=== PATIENT | female | born 1955 | race Caucasian/White ===

== ENCOUNTER 2020-04-06 09:01 | Emergency (ER) | payer MEDICARE, SELFPAY ==
[2020-04-06 09:02] VITALS: BP 146/91; PULSE 83; RESP 18; TEMP 35.6; O2SAT 93; BMI 29.5
--- NOTE | 2020-04-06 09:25 | EKG12_ITS ---
Test Reason : Blood Pressure : / mmHG Vent. Rate : 075 BPM Atrial Rate : 075 BPM P-R Int : 140 ms QRS Dur : 084 ms QT Int : 390 ms P-R-T Axes : 042 -18 010 degrees QTc Int : 435 ms Normal sinus rhythm Normal ECG Confirmed by MELVA MEEK, ELLIOTT ([id number]), marketing editor ANALY LAW ([id number]) on 04/11/2020 6:32:13 AM Referred By: SCOTT Confirmed By:ELLIOTT FRYE MD
--- NOTE | 2020-04-06 09:31 | ED.DCSUM_ITS ---
- ER Visit Summary Date of Service: 04/06/20 Chief Complaint: [Cough and hemoptysis] History of Present Illness: The patient is a 64 F [presents to the emergency department complaint of a cough that she has had for about 2 weeks. Patient states that yesterday she started coughing up bright red blood. She denies any clots. Patient states that there was significant on her blood initially but seems to have lessened by today. She denies any chest pain. She denies recent travel or surgery. She has no history of hemoptysis. Patient was a smoker but quit more than 10 years ago and thinks she may have smoked for about 30 years. Patient not currently on any anticoagulation. She denies any fever. Cough is been nonproductive. Patient has history of hypertension and anxiety. Patient is on Avapro for her hypertension and states that she has been on it for many years. Denies any trauma to her chest. She denies any COVID-19 exposures. She has had some mild congestion and mild sore throat. She denies body aches. She is had a mild headache off and on.] Physical Examination: [HEENT-PERRLA, EOMI. Cranial nerves II through XII grossly intact. TMs clear. Mucous membranes moist. No adenopathy. Cardiovascular-regular rate and rhythm without murmur or ectopy Lungs-clear to auscultation, chest wall stable without crepitus or subcu emphysema Abdomen-normoactive bowel sounds, soft, nontender, no rebound or rigidity, no peritoneal signs. Extremities-intact ?4, normal range of motion, normal pulses, atraumatic] Test Results: [EKG obtained arrival shows sinus rhythm with a ventricular rate of 75 bpm with no acute segment changes. CBC with differential obtained showed a white count 9.4, hemoglobin 12.9, hematocrit 38, plates were 90. Chemistries unremarkable. INR 1.1. D-dimer was 0.98. Influenza screen was negative. COVID-19 test ordered and pending. Patient had a chest x-ray initially read by radiology as right lower lobe infiltrate. On my interpretation I felt the exam was more consistent with questionable mass in the right lower lobe. There is no evidence of pneumothorax. CTA of the chest obtained was negative for PE or dissection. Patient was noted to have a 6.6 x 6.6 cm mass in the right infrahilar region extending into the right lower lobe with postobstructive pneumonia pneumonitis and small right pleural effusion. There is narrowing of the right intermediate stem bronchus. A neoplastic process should be ruled out. Patient had 1.4 cm x 1.1 cm irregular nodule in the anterior lateral aspect of the right upper lobe.] Emergency Department Course and Treatment: [IV line established on arrival.] Treatment Plan: [Case was discussed with special officer automat on-call Dr. Medhat Serna who asked that we call their office to establish an appointment for the patient to be seen at the earliest time. Patient was given an appointment for April 09 at 11:[address] Calles. At this point is not felt that patient needs to be admitted. She is hemodynamically stable and she is not having corrine hemoptysis at this time. She is advised to return if increased bleeding, passing clots, shortness of breath, or condition should worsen anyway.] Disposition: [Discharged home in stable condition] Impression: [Right lung mass Hemoptysis] This note was generated with [employer] dictation software. It may contain incorrect words, spelling, and punctuation that were not noted in review of the chart prior to signing ED Disposition - Plan for ED Patient: Referrals: Jm Villagran MD [Primary Care Provider] -
--- NOTE | 2020-04-06 10:10 | RAD_ITS ---
STUDY: X-RAY CHEST REASON FOR EXAM: Female, 64 years old. COUGHING UP BLOOD. SENT BY PCP. PT HAS BEEN COUGHING AND CONGESTED X 2 WEEKS TECHNIQUE: Single AP portable view of the chest. COMPARISON: None. FINDINGS: EKG electrodes are seen. Infiltrate is seen in the medial aspect of the right lung base. This may be within the posterior medial segment of the right lower lobe or medial aspect of the right middle lobe. Follow-up is recommended. The left lung is clear. There is no demonstrated pleural abnormality. There is borderline cardiomegaly. Normal mediastinum and rola. Normal visualized pulmonary arteries. Normal visualized aortic arch and descending thoracic aorta. Normal visualized thoracic spine. Normal visualized ribs, clavicles, and shoulders. There is no demonstrated abnormality of the visualized soft tissue structures of the upper abdomen. RAD/Chest 1 View (Portable) IMPRESSION: Right paracardiac infiltrate. Electronically Signed: Gilles Severino, at 10:28 EST , Service support ,
[2020-04-06] MEDS: 0.9% Normal Saline 1,000 ML 150 ML IV (10:11)
[2020-04-06 10:12] VITALS: O2SAT 97
[2020-04-06 10:19] LABS: Absolute Lymphocyte Count 1.22 X10^3/uL (0.83-4.51); Absolute Neutrophil Count 7.2 X10^3/uL (2.0-7.7); Basophil# 0.11 X10^3/uL; Basophil% 1.2 % (0-1); Eosinophil# 0.22 X10^3/uL; Eosinophils% 2.3 % (0-5); Hematocrit 38.2 % (37-47); Hemoglobin 12.9 g/dL (12.0-15.0); Lymphocyte # 1.22 X10^3/ul (4.0); Lymphocyte % 12.9 % (19-41); Mean Corp Hgb Conc 33.8 g/dL (32-36); Mean Corpuscular Hgb 28.4 pg (27.0-32.0); Mean Corpuscular Volume 84.1 fL (81-99); Mean Platelet Vol. 8.6 fl (6.2-12.0); Monocyte# 0.63 X10^3/uL; Monocyte% 6.7 % (0-10); NRBC Flagged by Analyzer 0 % (0-5); Neutrophil # 7.22 X10^3/uL (2.7-7.7); Neutrophil % 76.6 % (47-70); Platelet Count 490 K/mm3 (150-450); RBC Distribution Width CV 13.2 % (11.6-14.6); RBC Distribution Width SD 40.4 fl (35.1-43.9); Red Blood Count 4.54 M/mm3 (4.2-5.4); White Blood Count 9.4 K/mm3 (4.4-11.0)
[2020-04-06 10:30] LABS: International Normalized Ratio 1.1; Prothrombin Time (Protime)PT. 13.4 SECONDS (11.7-14.9)
[2020-04-06 10:31] LABS: Partial Thromboplast Time 35.3 Seconds (24.1-36.2)
[2020-04-06 10:36] LABS: D-Dimer Quantitative (DVT/PE) 0.98 FEU/ug/m (0.27-0.49)
--- NOTE | 2020-04-06 10:39 | CT_ITS ---
STUDY: CTA CHEST REASON FOR EXAM: Female, 64 years old. COUGH/CONGESTION X3-4 WEEKS -- HEMOPTYSIS TODAY RADIATION DOSAGE (If Supplied By Facility): CTDIvol = ( 10.78 ) mGy, DLP = ( 400.15 ) mGycm TECHNIQUE: The examination was performed with the intravenous administration of IV 75ML ISOVUE 370. Post-processing of the angiographic images was performed, with multiplanar reformation and 3D reconstruction. Individualized dose optimization techniques were used for this CT. COMPARISON: Comparison is made with prior chest radiograph done earlier in the day. FINDINGS: Normal enhancement of the main pulmonary artery and right and left pulmonary arteries. Normal enhancement of the bilateral peripheral pulmonary arteries. There is no demonstrated pulmonary embolism. Normal thoracic aorta and visualized great vessels. There is no demonstrated aortic dissection. Normal heart and pericardium. Normal mediastinum. Normal hilar regions. Normal visualized trachea and bronchi. The lungs are well expanded. There is a 6.6 cm x 6.6 cm mass in the right infra hilar region extending into the right lower lobe. There is evidence of a post obstructive pneumonitis in the posterior medial segment of the right lower lobe with small right pleural effusion. There is narrowing of the right intermediate stem bronchus. A neoplastic process should be ruled out. There is also evidence of a 1.4 cm x 1.1 cm irregular nodule in the anterior lateral aspect of the right upper lobe. Normal chest wall structures. There are degenerative changes of thoracic spine. Normal visualized upper abdomen. CT/CTA Chest W/WO Contrast IMPRESSION: 6.6 cm x 6.6 cm mass in the right infrahilar hilar region extending into the right lower lobe with postobstructive pneumonitis and small right pleural effusion. There is narrowing of the right intermediate stem bronchus. A neoplastic process should be ruled out. 1.4 cm x 1.1 cm irregular nodule in the anterior lateral aspect of the right upper lobe. Electronically Signed: Gilles Severino, at 11:55 EST , Service support ,
[2020-04-06 10:44] LABS: ALB/GLOB Ratio 0.7 RATIO (0.9-2.4); AST(SGOT) 18 U/L (15-37); Alanine Aminotransfer ALT/SGPT 19 U/L (13-56); Albumin, Serum 3.4 g/dL (3.2-5.0); Alkaline Phosphatase 85 U/L (45-117); Anion Gap 5 (5-15); BUN 10 mg/dL (7-18); BUN/Creat Ratio 13.1 RATIO (10-20); Calcium,Total 8.9 mg/dL (8.5-10.1); Chloride 106 mmol/L (98-107); Creatinine, Serum 0.76 mg/dL (0.55-1.02); EST Glomerular Filtration Rate 81 mL/min (>60); Est Glom Filt Rate - Afr Amer 98 mL/min (>60); Estimated Creatinine Clearance 41.76 ml/min; Globulin 4.7 g/dL (2.2-4.2); Glucose 102 mg/dL (74-106); Potassium 3.8 mmol/L (3.5-5.1); Protein, Total 8.1 g/dL (6.4-8.2); Sodium Level 136 mmol/L (136-145)
--- NOTE | 2020-04-06 12:53 | ED.DEP ---
ED Disposition - Plan for ED Patient: Instructions: Cancer of the Lung, ED Hemoptysis Referrals: Jm Villagran MD [Primary Care Provider] - Michael Calles MD [STAFF PHYSICIAN] - 04/09/20 11:15 am
[2020-04-06 13:01] VITALS: BP 138/77; PULSE 62; RESP 15; O2SAT 98
== END 2020-04-06 13:02 | disposition home or self-care (01) ==
LOC: ED 09:51
PROVIDERS: Emergency Provider Emergency Medicine; PCP Internal Medicine
DX: R04.2 Hemoptysis (principal); R91.8 Other nonspecific abnormal finding of lung field; J90 Pleural effusion, not elsewhere classified; Z20.822 Contact with and (suspected) exposure to COVID-19; I10 Essential (primary) hypertension; R51.9 Headache, unspecified; F41.9 Anxiety disorder, unspecified; Z79.899 Other long term (current) drug therapy; Z87.891 Personal history of nicotine dependence
CPT/HCPCS: 71045; 71275; 80053; 84484; 85025; 85379; 85610; 85730; 87040; 87635; 87804; 93005; 96360; 96361; 99284; J7030; Q9967; U0002

== ENCOUNTER 2020-04-13 10:54 | Day surgery (SDC) | payer MEDICARE, SELFPAY ==
--- NOTE | 2020-04-13 | LUNG_PTH ---
PATIENT: FLACO CONLEY LOC: EN U#:[id number] AGE/SX: 64/F ROOM: RE04/13/[address]: Dr. Michael Calles MD : 1955 BED: DIS: 04/13/2020 SPEC #: [id number] RECD: 04/13/20 13:00 STATUS: GIGI GARCIALamar #: [id number] LY: 04/13/20 00:[address]: Michael Calles DEPT: SURGICAL PATHOLOGY RECD BY: Shivam Steve ENTERED: 04/16/20 08:49 SP TYPE: LUNG BX OTHR DR: Dr. Jm Villagran MD Tissues: Bronchus of right lower lobe Procedures: Surgery Specimen Level IV HEADER OPERATION: EBUS, bronchoscopy with biopsies PRE-OP DIAGNOSIS: Lung mass TISSUE SUBMITTED: Right lower lobe lung biopsy MICROSCOPIC DIAGNOSIS Right lower lung, biopsy: Poorly differentiated non-small cell carcinoma, favor adenocarcinoma, consistent with lung primary. See comment. SJ:ellyn 04/16/2020 COMMENT Immunohistochemistry ([id number]) supports the above diagnosis. Molecular studies on the tumor can be performed if clinically indicated. Please notify the laboratory if they are needed. Please also make reference to corresponding cytology specimen [id number], EBUS. Case has been reviewed in consultation with Dr. Lilly who concurs with the above diagnosis. IDC:AM MICROSCOPIC DESCRIPTION Slides are reviewed. GROSS DESCRIPTION Received in fixative is one container labeled with the patient's name and designated right lower lobe lung biopsy. The specimen consists of multiple irregular fragments of light ryan soft tissue that in aggregate measure 2 x 0.5 x 0.1 cm. The specimen is totally submitted in one cassette. / TRUPTI:ellyn 04/13/20 TC:0 CPT: 20880 ADDENDUM ADDENDUM ADDENDUM ADDENDUM ADDENDUM ADDENDUM 04/27/2020 10:02 ADDENDUM 05/01/2020 10:45 ADDENDUM 05/22/2020 09:29 ADDENDUM 07/19/2020 10:25 ADDENDUM 04/27/2020 10:02 ADDENDUM 04/27/2020 10:02 ADDENDUM 04/27/2020 10:02 ADDENDUM 04/27/2020 10:02 PD-L1 (KEYTRUDA) IMMUNOHISTOCHEMICAL ANALYSIS FROM [facility] RESULTS: Tumor proportion score: >90% / Positive Please see complete report in e-chart or EMR [facility] NGS REPORT FROM [facility] RESULT SUMMARY: Abnormal PERTINENT NEGATIVE RESULTS: The following genes are NEGATIVE for clinically relevant mutations. Mutational hotspots and surrounding exonic regions were interrogated for DNA level point mutations and indels (fusions not assayed). AKT1, ALK, BRAF, DDR2, EGFR, ERBB2, FGFR1, KRAS, MET, NTRK1, PIK3CA, POLD1, STK11, TERT DETECTED GENOMIC ALTERATIONS: Tier II: Variants of Potential Clinical Significance TP53 p.([id number]) MAP2K1 p.([id number]) Tier III: Variants of Unknown Clinical Significance NRAS p.([id number]) POLE p.([id number]) Please see complete report in e-chart or EMR This addendum is added to incorporate an outside pathology consultation report. The case was examined at [facility] (#[id number]) and the following diagnosis was rendered. Right lower lung, biopsy: Non-small cell carcinoma, favor adenocarcinoma. Please see complete above mentioned consultation report in EMR This addendum is added to incorporate an outside pathology consultation report. The case was examined at [facility] (#[id number]) and the following diagnosis was rendered. Right lower lung, biopsy: Non-small cell carcinoma, favor adenocarcinoma. Please see complete above mentioned consultation report in EMR
--- NOTE | 2020-04-13 | IMM_PTH ---
PATIENT: FLACO CONLEY LOC: EN U#:[id number] AGE/SX: 64/F ROOM: RE04/13/[address]: Dr. Michael Calles MD : 1955 BED: DIS: 04/13/2020 SPEC #: [id number] RECD: 04/16/20 10:54 STATUS: GIGI RELamar #: [id number] LY: 04/13/20 00:[address]: Michael Calles DEPT: IMMUNOHISTOCHEMISTRY RECD BY: Araceli Hernandez ENTERED: 04/16/20 10:55 SP TYPE: IMMUNO OTHR DR: Dr. Jm Villagran MD Tissues: Right lower lobe of lung, NOS Procedures: RCC (add) NAPSIN A (add) CK20 (add) CK5-6 (add) CK7 (add) CK8 (add) HEP PAR (add) IL (add) TTF1 (add) Pankeratin (add) P40 (add) ER (initial) PHYSICIAN & [address] [address] SPECIMEN INFORMATION: Tissue Source: Right lower lobe lung biopsy Clinical Info: Lung mass Specimen Number: [id number] CPT code: 06938, 45571 x11 METHODOLOGY: Deparaffinized sections of prefer/formalin-fixed tissue or PAP/DQ stained slides are incubated with monoclonal/polyclonal antibodies/oligonucleotide probes. Localization is made via biotin free immunoperoxidase method. Appropriate controls are performed and reacted as expected. Results on target cell population are indicated in the following table: RESULTS: ANTIBODY / CLONE RESULT ER (6F11) negative IL (1E2) negative AE1-3 (AE1/AE3/PCK26) positive CK7 (OV-TL12/30) positive CK8 (48izffH37) positive CK20 (KS20.8) negative TTF-1 (8G7G3/1) positive Napsin A (Rabbit Polyclonal) positive HepPar (OCh1E5) negative RCC (PN-15) negative CK5-6 (D5 & 1684) negative P40 (BC28) negative These tests were developed and their performance characteristics determined by [facility]. They may not have been cleared or approved by the U.S. Food and Drug Administration. The FDA has determined that such clearance or approval is not necessary. The above immunohistochemical/dualISH markers are ordered and reviewed by the Pathologist. INTERPRETATION: Right lower lobe lung biopsy: Poorly differentiated non-small cell carcinoma, favor adenocarcinoma, consistent with lung primary. SJ:ellyn 04/17/2020 ADDENDUM ADDENDUM ADDENDUM ADDENDUM ADDENDUM 10/18/2020 13:06 ADDENDUM 10/18/2020 13:06 ADDENDUM 10/18/2020 13:06 ADDENDUM 10/18/2020 13:06 ADDENDUM 10/18/2020 13:06 ANTIBODY / CLONE RESULT CA125 (OC125) negative, focal dim AM:ellyn 10/18/2020
--- NOTE | 2020-04-13 | ASPIG_PTH ---
PATIENT: FLACO CONLEY LOC: EN U#:[id number] AGE/SX: 64/F ROOM: RE04/13/[address]: Dr. Michael Calles MD : 1955 BED: DIS: 04/13/2020 SPEC #: [id number] RECD: 04/13/20 13:00 STATUS: GIGI LETI #: [id number] LY: 04/13/20 00:[address]: Michael Calles DEPT: CYTOLOGY RECD BY: Shivam Steve ENTERED: 04/16/20 08:48 SP TYPE: ASP OUT OTHR DR: Dr. Jm Villagran MD Tissues: A - Lung, NOS B - Lung, NOS C - Lung, NOS D - Lung, NOS E - Lung, NOS F - Lung, NOS G - Lung, NOS H - Lung, NOS I - Lung, NOS J - Lung, NOS Procedures: FNA Specimen Adequacy Special Stain Group II Surgery Specimen Level IV Cytology Other HEADER OPERATION: EBUS, bronchoscopy with biopsies PRE-OP DIAGNOSIS: Right lower lobe lung biopsy TISSUE SUBMITTED: A - EBUS, TBNA, site 2R #1, B - EBUS, TBNA, site 2R #2, C - EBUS, TBNA, site?7 #3, D - EBUS, TBNA, site 7 #4, E - EBUS, TBNA, site 7 #5, F - EBUS, TBNA fluid, site 2R, G - EBUS, TBNA fluid, site 7, H - BAL RLL, I - Wilson RLL, J - Brushings RLL, Smears x8 DIAGNOSIS CYTOLOGY A. EBUS, TBNA, site 2R #1 (smears): Mostly respiratory epithelial cells. Rare lymphocytes are noted. Negative for malignant cells. B. EBUS, TBNA, site 2R #2 (smears): Paucicellular specimen. Rare respiratory epithelial cells. C. EBUS, TBNA, site 7 #3 (smears): Negative for malignant cells. Respiratory epithelial cells, lymphocytes and macrophages are noted. D. EBUS, TBNA, site 7 #4 (smears): Negative for malignant cells. Numerous lymphocytes are noted. E. EBUS, TBNA, site 7 #5 (smears): Negative for malignant cells. Mostly respiratory epithelial cells and mucous. F. EBUS, TBNA, site 2R fluid (cell block): Paucicellular specimen, negative for malignant cells. Rare benign epithelial cells are noted. G. EBUS, TBNA, site 7 fluid (cell block): Negative for malignant cells. Lymphocytes are noted. Respiratory epithelial cells are also noted. H. BAL, RLL fluid (cytospin and cell block): Malignant cells present derived from non-small cell carcinoma. I. Wilson, RLL (cell block): Crushed atypical cells noted suspicious for malignancy. J. RLL, brushings (smears): Malignant cells present derived from non-small cell carcinoma. TRUPTI:ellyn 04/16/2020 COMMENT The specimen is evaluated at the time of procedure by Dr. Dodge. Rapid Onsite Evaluation: A. EBUS, TBNA, site 2R #1: Mostly respiratory epithelial cells. Rare lymphocytes. Negative for malignant cells. B. EBUS, TBNA, site 2R #2: Paucicellular specimen. Rare respiratory epithelial cells. C. EBUS, TBNA, site 7 #3: Negative for malignant cells. Respiratory epithelial cells, lymphocytes and macrophages. D. EBUS, TBNA, site 7 #4: Negative for malignant cells. Numerous lymphocytes are noted. E. EBUS, TBNA, site 7 #5: Negative for malignant cells. Mostly respiratory epithelial cells and mucous. Please make reference to corresponding surgical specimen [id number], right lower lobe lung biopsy with diagnosis of poorly differentiated non-small cell carcinoma, favor adenocarcinoma, consistent with lung primary. Case has been reviewed in consultation with Dr. Lilly who concurs with the above diagnosis. IDC:AM CYTOLOGY STUDY Slides are reviewed. CYTOLOGY GROSS A - Received labeled with the patient's name and and designated EBUS, TBNA, site 2R #1. The specimen consists of two stained smears for RAYMOND (Rapid Onsite Evaluation). B - Received labeled with the patient's name and and designated EBUS, TBNA, site 2R #2. The specimen consists of two stained smears for RAYMOND. C - Received labeled with the patient's name and and designated EBUS, TBNA, site 7 #3. The specimen consists of two stained smears for RAYMOND. D - Received labeled with the patient's name and and designated EBUS, TBNA, site 7 #4. The specimen consists of two stained smears for RAYMOND. E - Received labeled with the patient's name and and designated EBUS, TBNA, site 7 #5. The specimen consists of two stained smears for RAYMOND. F - Received in RPMI is 20 ml of pink, needle rinsed fluid labeled with the patient's name and and designated EBUS, TBNA, site 2R. The specimen is submitted for cell block preparation. G - Received in RPMI is 20 ml of pink, needle rinsed fluid labeled with the patient's name and and designated EBUS, TBNA, site 7. The specimen is submitted for cell block preparation. H - Received in RPMI is 20 ml of pink, needle rinsed fluid labeled with the patient's name and and designated BAL RLL. The specimen is submitted for cytology preparation including cell block preparation. I - Received is a metallic endoscopic cytobrush with adherent minute fragments of ryan-red tissue brush in 2 ml of clear red fluid and labeled with the patient's name and and designated per the requisition as brush, RLL. The material is dislodged from the brush and submitted for cell block preparation. J - Received are eight smears labeled with the patient's name and designated per the requisition as Brushing, RLL. Submitted for staining. / SJ:rg 04/13/20 TC:0 CPT: 60972, 35017 x4, 97268 x2, 35413 x2, 90063 x3, 21316
--- NOTE | 2020-04-13 06:58 | HP_ITS ---
Assessment & Plan Problems 1. Right lower lobe lung mass R91.8 2. Hemoptysis R04.2 3. Nodule of upper lobe of right lung R91.1 Plan Patient has a right lower lobe mass, but also has a possible 4R lymph node. After review of the risks, benefits and alternatives, patient has agreed to a bronchoscopy with possible EBUS evaluation. Differential would include infection, malignancy or aspiration given the right lower lobe position. Will obtain a pulmonary function test to see if patient would be a potential resection candidate. Patient will hold aspirin. Bronchoscopy has been scheduled for 12 PM on 04/13/2020 at . Obtain complete PFT, bronchoscopy and EBUS. Follow-up after pathology available Orders Orders: Bronchoscopy Today R91.8 Pulmonary Function Test (Comp) Today R91.8 Plan Detail Follow Up 2 Weeks (SCOUT) HPI ER FOLLOWUP 04/06/20: Chief Complaint: Hemoptysis Details: Patient is a 64-year-old female, currently under the care of Dr. Villagran, who presents for evaluation secondary to hemoptysis following an ER visit. Patient reports that she had presented to the ER secondary to acute onset of hemoptysis. Patient reports that this was streaks of blood, but has been relatively consistent since that time. Patient denies any trauma to her chest. As part of the ER work-up, patient had a CT of the chest showing a 6.6 x 6.6 cm mass and patient presents for recommendations. Patient reports she did take a lot of aspirin in the past secondary to headaches and body aches. Patient is not reporting any abdominal pain, but does state that she has had some melena over the last 24 to 48 hours. Patient has had a colonoscopy in the past and had a negative Cologuard this year. Patient does have an extensive smoking history of 30+ pack years, but quit 10 years ago. Patient is not reporting any chest pain at this time. Patient denies any nausea or vomiting exactly, but does report some queasiness. Patient reports that she has had her normal screening labs and procedures such as colonoscopy and mammograms. Patient does not report any history of abnormal maladies of concern. Patient does not know of any previous diagnosis of COPD. Patient does not use inhalers at baseline. Patient does report poor sleep at night, but attributes this to hemoptysis, especially with lying flat. Over 65 minutes was spent during family consultation, review of imaging, description of bronchoscopy and possible treatment options. Additional history was obtained from daughter and at the appointment. Time was also spent arranging invasive procedures. Documentation reviewed 8 pages of documentation were reviewed prior to the office visit. This did include an ER summary from 04/06/2020 where the patient presented with cough and hemoptysis. Patient reportedly had a [id number] smoking history. Extensive work-up was obtained showing a 6.6 x 6.6 cm mass in the right infrahilar region with postobstructive pneumonitis and a small pleural effusion. Patient also had a 1.4 x 1.1 irregular nodule in the anterior lateral aspect of the right upper lobe. CT chest (04/06/2020): Personally reviewed with the patient. There does appear to be some mediastinal adenopathy in the paratracheal area in addition to masses as noted above. Does appear to be an endobronchial component. Intake Vital Signs 04/09/20 Weight: 71.214 kg 04/09/20 BP 139/93 H 04/09/20 Blood Pressure Location Lt brachial 04/09/20 Position Sitting 04/09/20 Respiration 19 H 04/09/20 Pulse 83 04/09/20 Pulse Source Monitor 04/09/20 Temp 37.0 C 04/09/20 Temperature Source Tympanic 04/09/20 Pulse Oximetry (%) 93 04/09/20 Oxygen Delivery Method room air Intake Visit Reasons: ER FOLLOWUP 04/06/20 Allergies No Known Allergies Allergy (Verified 04/09/20 11:12) Medications Citalopram [Celexa] 10 mg PO DAILY 04/06/20 [History Confirmed 04/09/20] Irbesartan [Avapro] 150 mg PO DAILY 04/06/20 [History Confirmed 04/09/20] [facility] Medical History (Updated 04/09/20 @ 14:[address] Michael Calles MD) Anxiety (Acute) History of melanoma (Acute) No pertinent family history (Acute) Hypertension (Chronic) Surgical History (Updated 04/09/20 @ 11:14 by Flora Iniguez) No pertinent past surgical history (Acute) Family History (Updated 04/09/20 @ 11:14 by Flora Iniguez) Other No pertinent family history Social History (Updated 04/09/20 @ 14:[address] Michael Calles MD) Smoking Status: Never smoker Exam Const Constitutional: Positive conversant, cooperative, in no acute respiratory distress, healthy appearing, well developed, well nourished and good hygiene Head Head: Yes normocephalic, Yes atraumatic, No cyanosis of lips/distal nose Eyes Eye: Positive clear conjunctiva; negative nystagmus, scleral abnormality or cataract present Ears Ear: Positive hearing normal and external ears normal; negative hard of hearing Neck Neck: Positive normal visual inspection, full ROM and trachea midline; negative lymphadenopathy or JVD Chest Wall Chest: Positive normal inspection of the chest and symmetric chest movement; negative crepitus or tenderness Resp lung sounds: Positive clear to auscultation, good air exchange and normal expiratory time; negative wheezes, wheeze present on forced exhalation, rhonchi, rales, dullness to percussion or use of accessory muscles Cardio Cardiac: Positive regular rate, regular rhythm, S1 normal and S2 normal; negative murmur, rub or gallop GI GI: Positive normal to inspection and normal bowel sounds; negative distended, ascites or epigastric tenderness Genitourinary: Positive deferred Musc Musculoskeletal: Positive steady gait; negative using an assistive device for ambulation, kyphosis or scoliosis Skin Pulmonary Skin Exam: Positive intact; negative lesion, rash, ulcers or erythema Pulses Pulse: Yes radial pulses present Extremities Extremities: Yes capillary refill normal, No clubbing, No cyanosis, No edema Neuro Neurologic: Yes no focal neuro deficits, Yes conversant, Yes cooperative, Yes normal cognition, Yes normal coordination, Yes normal concentration, Yes understands questions Lymph Lymphatic: No lymphadenopathy Psych Appearance: Positive grossly normal Mental Status: Positive mental status grossly normal Mood: Positive congruent mood Affect: Positive normal affect Coding Level of Care Code Off vis,new,level 5 Diagnoses Right lower lobe lung mass R91.8 Hemoptysis R04.2 Nodule of upper lobe of right lung R91.1 Time Spent (min) 65
[2020-04-13 11:14] VITALS: BP 113/67; PULSE 83; RESP 16; TEMP 37.1; O2SAT 100; BMI 28.8
[2020-04-13] MEDS: Lactated Ringers 1,000 ML 100 ML IV ×2 (11:29→13:00)
[2020-04-13 13:32] VITALS: BP 113/67; BP 115/86; PULSE 81; RESP 16; TEMP 36.8; O2SAT 94
[2020-04-13 13:45] VITALS: BP 112/70; BP 113/67; PULSE 78; RESP 18; O2SAT 100
--- NOTE | 2020-04-13 13:56 | OP.BRONCH_ITS ---
Patient Name: Aretha Huber Procedure Date: 04/13/2020 12:19 PM Date of : 1955 Age: 64 Procedure: Bronchoscopy Indications: Right lower lobe mass, Hemoptysis with abnormal CXR, Paratracheal adenopathy Providers: Michael Calles MD Referring MD: Jm Villagran Medicines: See the Anesthesia note for documentation of the administered medications Complications: No immediate complications Procedure: Pre-Anesthesia Assessment: - A History and Physical has been performed. The patient's medications, allergies and sensitivities have been reviewed. - The risks and benefits of the procedure and the sedation options and risks were discussed with the patient. All questions were answered and informed consent was obtained. - Patient identification and proposed procedure were verified prior to the procedure by the physician, the nurse and the doctor of optometry. The procedure was verified in the procedure room. After I obtained informed consent, the scope was passed under direct vision. Throughout the procedure, the patient's blood pressure, pulse, and oxygen saturations were monitored continuously. The ultrasound bronchoscope was introduced through the mouth, via laryngeal mask airway and advanced to the tracheobronchial tree. The procedure was accomplished without difficulty. The patient tolerated the procedure well. Findings: Trachea/Susu Abnormalities: Acanthosis was found in the upper trachea. Partially obstructing (about 70% obstructed) bronchomalacia was found throughout the tracheobronchial tree. Left Lung Abnormalities: Partially obstructing (about 70% obstructed) bronchomalacia was found throughout the left tracheobronchial tree. Right Lung Abnormalities: A partially obstructing (about 90% obstructed) mass was found proximally, at the orifice in the right lower lobe. The mass was large and bloody, friable, fungating and polypoid. Topical Epinephrine (1:10,000), 1 mg/10 mL was administered. The bleeding persisted, despite the treatment. The lesion was not traversed. Endobronchial biopsies were performed in the right lower lobe using forceps and sent for histopathology examination. 7 were obtained. Trachea/Susu Abnormalities: Transbronchial needle aspiration of a lesion was performed in the right paratracheal area using an Olympus EBUS-TBNA 19 gauge needle and sent for routine cytology. The procedure was guided by ultrasound. Two samples were obtained. Transbronchial needle aspiration of a lesion was performed in the subcarinal area using an Olympus EBUS-TBNA 19 gauge needle and sent for routine cytology. The procedure was guided by ultrasound. Three samples were obtained. Rapid On-Site Evaluation (RAYMOND): Preliminary cytology of the lesion in the subcarinal area suggested the cellularity of the specimen was adequate. Rapid On-Site Evaluation (RAYMOND): Preliminary cytology of the lesion in the right paratracheal area was non-diagnostic. Hematoma formation on ultrasound limited biopsies on 2R lymph nodes. Brushings of a mass were obtained in the right lower lobe with a cytology brush and sent for routine cytology. One sample was obtained. Impression: - Right lower lobe mass - Hemoptysis with abnormal CXR - Paratracheal adenopathy - Acanthosis was found in the upper trachea. - Bronchomalacia was visualized throughout the tracheobronchial tree. - Bronchomalacia was visualized throughout the tracheobronchial tree. - A bloody, friable, fungating and polypoid mass was found in the right lower lobe. This lesion is malignant. - An endobronchial biopsy was performed. - Topical Epinephrine (1:10,000), 1 mg/10 mL administered. The bleeding persisted, despite the treatment. - Endobronchial ultrasound was performed. - A transbronchial needle aspiration was performed. - A transbronchial needle aspiration was performed. - Rapid On-Site Evaluation (RAYMOND): Preliminary cytology of the lesion in the subcarinal area suggested the cellularity of the specimen was adequate. - Rapid On-Site Evaluation (RAYMOND): Preliminary cytology of the lesion in the right paratracheal area was non-diagnostic. Recommendation: - The patient will be observed post-procedure, until all discharge criteria are met. - Await biopsy, brushing, cytology and washing results. Procedure Code(s): --- Professional --- 09603, Bronchoscopy, rigid or flexible, including fluoroscopic guidance, when performed; with transbronchial needle aspiration biopsy(s), trachea, main stem and/or lobar bronchus(i) 48458, 59, Bronchoscopy, rigid or flexible, including fluoroscopic guidance, when performed; with bronchial or endobronchial biopsy(s), single or multiple sites 62936, Bronchoscopy, rigid or flexible, including fluoroscopic guidance, when performed; with brushing or protected brushings Diagnosis Code(s): --- Professional --- R91.8, Other nonspecific abnormal finding of lung field R04.2, Hemoptysis R59.0, Localized enlarged lymph nodes J39.8, Other specified diseases of upper respiratory tract J98.09, Other diseases of bronchus, not elsewhere classified C34.31, Malignant neoplasm of lower lobe, right bronchus or lung CPT copyright 2017 [employer]. All rights reserved. The codes documented in this report are preliminary and upon leadite man review may be revised to meet current compliance requirements. MD Michael Childs MD 04/13/2020 1:55:56 PM This report has been signed electronically. Number of Addenda: 0 Note Initiated On: 04/13/2020 12:19 PM
[2020-04-13 14:00] VITALS: BP 113/67; BP 118/77; PULSE 73; RESP 18; TEMP 36.6; O2SAT 97
[2020-04-13 14:25] VITALS: BP 113/67
== END 2020-04-13 14:43 | disposition home or self-care (01) ==
LOC: EN 10:55 → AC 10:56
PROVIDERS: PCP Internal Medicine; Referring Provider Internal Medicine; Visit Provider Internal Medicine Critical Care Medicine
PROC: BB4BZZZ Ultrasonography of Pleura (ICD-10-PCS; CPT 31623; principal; 2020-04-13 11:30)
DX: C34.31 Malignant neoplasm of lower lobe, right bronchus or lung (principal); J98.09 Other diseases of bronchus, not elsewhere classified; R04.2 Hemoptysis; R59.0 Localized enlarged lymph nodes; I10 Essential (primary) hypertension; F41.9 Anxiety disorder, unspecified; Z79.899 Other long term (current) drug therapy; Z85.820 Personal history of malignant melanoma of skin
CPT/HCPCS: 31623; 31625; 31629; 88161; 88172; 88305; 88313; 88341; 88342; J7120; J2405; J3490

== ENCOUNTER → 2020-04-18 09:21 | Outpatient (CLI) | payer MEDICARE, SELFPAY ==
[2020-04-13 11:14] VITALS: BMI 28.8
--- NOTE | 2020-04-18 12:22 | PFT ---
INTRODUCTION: The patient is a 64-year-old female that presents for pulmonary function studies secondary to a diagnosis of lung mass. Respiratory therapy reports good patient effort. Bronchodilators were used during testing. INTERPRETATION: Forced expiration spirometry demonstrates no evidence of a large airways obstructive ventilatory defect. There was no significant response to aerosolized bronchodilators, based upon strict ATS criteria. Body plethysmography was performed and reveals a decreased TLC to 3.17 L, 73% of predicted, indicative of a mild restrictive ventilatory impairment. The remainder of the lung volumes are symmetrically reduced. Diffusing capacity by single breath CO is reduced at 61% of predicted. IMPRESSION: Mild restrictive ventilatory impairment with symmetric reduction in diffusing capacity.
== END ==
PROVIDERS: PCP Internal Medicine; Referring Provider Internal Medicine Critical Care Medicine; Visit Provider Internal Medicine Critical Care Medicine
DX: R91.8 Other nonspecific abnormal finding of lung field (principal)
CPT/HCPCS: 94060; 94726; 94729

== ENCOUNTER → 2020-04-30 16:04 | Outpatient (CLI) | payer MEDICARE, SELFPAY ==
[2020-04-18 11:45] VITALS: BMI 28.4
--- NOTE | 2020-04-30 16:04 | MRI_ITS ---
STUDY: MRI BRAIN WITH AND WITHOUT CONTRAST REASON FOR EXAM: Female, 64 years old. staging, lung cancer, NO HEAD COMPLAINTS TECHNIQUE: Standardized multiplanar fat and water weighted pulse sequences were obtained. IV 12cc dotarem was administered for the contrast portion of the examination. COMPARISON: None. FINDINGS: No intracranial mass, mass effect, or midline shift. No enhancing lesion. No hemorrhage, territorial infarct or acute ischemia. Normal size of the ventricles and extra-axial spaces for the patient''s age. Normal white matter tracts of the supratentorial brain. Normal bilateral basal ganglia. Normal thalami. There is no extra-axial fluid accumulation. Normal flow voids within the major intracranial circulation suggesting patency by spin echo criteria. Incidental note is made of the venous angioma in the right frontal lobe. Normal sella turcica, pituitary gland, infundibular stalk, optic chiasm and hypothalamus. Normal midbrain, jonna and medulla. Normal cerebellum. Normal basal cisterns. Normal bilateral temporal bones. Trace mucosal thickening in the left maxillary sinus. Sinuses are otherwise clear. Normal calvarium and skull base. Normal visualized soft tissue structures. MRI/Brain W/WO Contrast IMPRESSION: 1. No acute findings. No evidence of metastatic disease. 2. Incidental right frontal venous angioma. Electronically Signed: Felicitas Mroales MD at 23:42 EST Tel , Service support ,
== END ==
PROVIDERS: PCP Internal Medicine; Referring Provider Internal Medicine Critical Care Medicine; Visit Provider Internal Medicine Critical Care Medicine
DX: C34.11 Malignant neoplasm of upper lobe, right bronchus or lung (principal)
CPT/HCPCS: 70553; A9575

== ENCOUNTER → 2020-05-01 16:54 | Outpatient (CLI) | payer MEDICARE, SELFPAY ==
[2020-04-18 11:45] VITALS: BMI 28.4
--- NOTE | 2020-05-01 15:00 | PET_ITS ---
EXAMINATION: FDG PET/CT INDICATIONS: A 64-year-old female with reported history of carcinoma of the lung presenting for initial staging examination. COMPARISON EXAMINATION: CT of the chest report dated 04/06/20 INDEX LESION SIZE SUV INTERPRETATION Right lower posteromedial lung-right lower lobe 5.9 x 5.7-cm (frame 145) 24.1 Fulfills quantitative criteria for viable neoplasm Right upper anterior lung field-right upper lobe 14.6-mm (frame 173) 1.6 Quantitative criteria for viable neoplasm are not fulfilled NON-INDEX LESION SIZE SUV INTERPRETATION Pre-carinal mediastinal structures 21.4-mm (largest) (frame 160) 2.8 (max) Quantitative criteria for viable neoplasm are not fulfilled TECHNIQUE: Following the intravenous administration of 13.9 mCi of F-18 deoxyglucose via the left antecubital fossa, multiplanar image acquisitions of the neck, chest, abdomen and pelvis to level of mid thigh, obtained at one hour post radiopharmaceutical administration contemporaneously interpreted with the current CT of the neck, chest, abdomen and pelvis to level of mid thigh, dated 05/01/[address] of the chest report dated 04/06/20 reveal: SERUM GLUCOSE LEVEL: 96 mg/dl. HEIGHT: 61 inches. WEIGHT: 152 lbs. FINDINGS: 1. Increased GLUCOSE metabolism is defined in the right lower posteromedial lung-right lower lobe generating a calculated maximal standard uptake value of 24.1. The maximal axial diameter of the corresponding parenchymal density-mass on review of CT of the chest dated 05/01/20 is 5.9-cm (transverse) x 5.7-cm (AP). 2. Enhanced tracer concentration is observed in the pre-carinal level mediastinum to the right of the midline in two separate nodular presentations. The calculated maximal standard uptake value is 2.8. The maximal axial diameter of the largest individual metabolic, morphologic abnormality on review of CT of the chest dated 05/01/20 is 21.4-mm. 3. An increase in FDG distribution is observed in the right upper anterior lung-right upper lobe demonstrating a calculated maximal standard uptake value of 1.6. The maximal axial diameter of the corresponding non-calcified density on review of CT of the chest dated 05/01/20 is 14.6-mm (AP). 4. Normal physiologic distribution of the radiopharmaceutical is apparent in the hepatic (2.8) and splenic parenchyma, both renal units, bladder and visualized intestinal tract. The visualized portion of the cerebral cortex demonstrate symmetric and preserved glucose metabolism. Diffuse radiopharmaceutical concentration is noted in all four quadrants of the abdomen and pelvis. Pertinent CT findings are as follows: CHEST: There are no additional parenchymal densities-nodules defined in the left and right hemithorax with discernible quantitatively significant increased FDG uptake. Bilateral subcentimeter axillary soft tissue with fatty hilus is ametabolic. There is atherosclerotic calcification defined in the thoracic aorta without evidence of dilatation-aneurysm formation. Partial calcification is defined in the previously described soft tissue mass involving the right lower posteromedial lung. ABDOMEN AND PELVIS: There is atherosclerotic calcification defined in the abdominal aorta without evidence of dilatation-aneurysm formation. Pelvic arterial calcification is observed. Right and left inguinal soft tissue densities with fatty hilus are ametabolic. Colonic diverticulosis is encountered without evidence of diverticulitis. Cyst formation is demonstrated in the region of the right adnexa without evidence of increased tracer uptake. The uterus is not clearly identified. SKELETAL: Degenerative changes are noted in the cervical, thoracic and lumbar spine without evidence of increased radiopharmaceutical concentration. PET/PET/CT Tumor Base -Thigh Init IMPRESSION: 1. ABNORMAL EXAMINATION INDICATIVE OF MALIGNANT VIABLE NEOPLASM. 2. Increased FDG distribution identified in the right lower posteromedial lung-right lower lobe fulfills quantitative criteria for viable neoplasm. (Obregon et al, Annals of Internal Medicine, 138:724, 2003). 3. Enhanced tracer uptake defined in the mediastinal structures and right upper lung-right upper lobe do not fulfill quantitative criteria for malignant transformation. (Deion et al, Journal of Clinical Oncology 16:2142, 1998 Obregon et al, Annals of Internal Medicine, 138:724, 2003). 4. No other quantitatively significant hypermetabolic abnormalities are noted. There is no definitive scintigraphic evidence of distant metastatic disease. Electronic Signature Ramon Mishra D.O. Accurate Quantification of SUVs for this report are calculated using the exclusive Incentive? Technology.??Exclusive [place].S. Patent Accuquan? Technology ([place].S. Patent No. [phone]). Electronically Signed: Ramon Mishra DO at 22:06 EST Tel , Service support ,
== END ==
PROVIDERS: PCP Internal Medicine; Referring Provider Internal Medicine Critical Care Medicine; Visit Provider Internal Medicine Critical Care Medicine
DX: C34.11 Malignant neoplasm of upper lobe, right bronchus or lung (principal)
CPT/HCPCS: 78815; A9552

== ENCOUNTER 2020-05-15 13:13 | Inpatient (IN) | payer MEDICARE, SELFPAY ==
[2020-04-18 11:45] VITALS: BMI 28.4
[2020-05-15] VITALS (9 sets, daily range): BP systolic 115–129; BP diastolic 64–78; PULSE 70–93; RESP 11–20; TEMP 36.1–36.9; O2SAT 93–96; BMI 28.3; BMI 28.4
--- NOTE | 2020-05-15 13:48 | EKG12_ITS ---
Test Reason : SOB Blood Pressure : / mmHG Vent. Rate : 081 BPM Atrial Rate : 081 BPM P-R Int : 136 ms QRS Dur : 082 ms QT Int : 374 ms P-R-T Axes : 031 001 032 degrees QTc Int : 434 ms Normal sinus rhythm Normal ECG Confirmed by ELLIOTT FRYE MD ([id number]), video effects editor LINCOLN BETANCOURT ([id number]) on 05/16/2020 12:51:27 PM Referred By: DEEPA Confirmed By:ELLIOTT FRYE MD
--- NOTE | 2020-05-15 13:58 | ED.DCSUM_ITS ---
- ER Visit Summary Date of Service: 05/15/20 Chief Complaint: Shortness of breath History of Present Illness: The patient is a 64 F 3 weeks he was diagnosed with right lung CA. Had bronchoscopy. Is set up to be treated at [facility] to have cardiothoracic surgery next week for the lung cancer. Typically is not on oxygen at home. She was hypoxic today at home at 87% and family put her on her 's O2. She is never had a DVT or PE. She has been having blood- tinged productive phlegm but she has had that for weeks. No leg pain or swelling. No recent hospitalization. No recent surgery. Denies chest pain. Physical Examination: Older female no acute distress vital signs stable except on oxygen pulse ox 93%. H EENT exam unremarkable. Neck nontender no lymphadenopathy. Lungs clear to auscultation bilaterally. Heart regular rhythm rate about 90 no murmur. Abdomen soft nontender normal bowel sounds no peritoneal signs. Extremities moves all 4. Calves are nontender without edema or cords. Neurologically patient is awake and alert with no focal motor defi cits. Test Results: Chest x-ray portable 1 view shows what appears to be a right lower lobe postobstructive infiltrate. CTA of the chest shows no PE but right lower lobe lung cancer with post mass obstruction and suspected infiltrate. Read by the radiologist reviewed by me. EKG shows normal sinus rhythm rate 81 with no acute signs of ND or ischemia. CBC shows white count 12.7. Hemoglobin 11. No bands. Demonstrates unremarkable normal creatinine and gap. Troponin normal. D-dimer was elevated greater than 20. Rapid Covid is negative. Emergency Department Course and Treatment: 64-year-old female diagnosed with lung CA 3 weeks ago. Presents the emergency department today for increasing shortness of breath. No history of DVT or PE. Treatment Plan: Repeat exam patient is doing well at 3:40 PM. I discussed her overall case with Dr. Medhat Serna lead systems developer on-call for Dr. Michael Calles. Due to her hypoxia which is new and possible postobstructive infiltrate we will admit the patient. She will be started on IV Levaquin. I have the hospitalist on page. I discussed all this with the patient and family. Disposition: Admission Impression: Acute dyspnea with hypoxia History of right lung CA with postobstructive atelectasis and pneumonia This note was generated with Dragon dictation software. It may contain incorrect words, spelling, and punctuation that were not noted in review of the chart prior to signing ED Disposition - Plan for ED Patient: Referrals: Jm Villagran MD [Primary Care Provider] -
--- NOTE | 2020-05-15 14:20 | RAD_ITS ---
STUDY: X-RAY CHEST REASON FOR EXAM: Female, 64 years old. Chest pain TECHNIQUE: Single AP portable view of the chest. COMPARISON: Comparison is made with prior study dated 04/06/2020. FINDINGS: EKG electrodes are seen. Hyperinflation. Persistent heterogeneous infiltrate in the posterior medial segment of the right lower lobe. Prior CT scan of the thorax dated 04/06/2020 demonstrated a mass in the right infrahilar region with postobstructive pneumonitis. There is no demonstrated pleural abnormality. Normal size heart. Normal mediastinum and rola. Normal visualized pulmonary arteries. There is atherosclerotic calcification of the aortic arch with tortuosity. Normal visualized thoracic spine. Normal visualized ribs, clavicles, and shoulders. There is no demonstrated abnormality of the visualized soft tissue structures of the upper abdomen. RAD/Chest 1 View (Portable) IMPRESSION: Stable heterogeneous infiltration in the posterior segment of the right lower lobe. The patient is known to have a mass in the right infrahilar region with postobstructive pneumonitis. Electronically Signed: Gilles Severino MD at 14:55 EST , Service support ,
[2020-05-15 14:24] LABS: Absolute Lymphocyte Count 0.92 X10^3/uL (0.83-4.51); Absolute Neutrophil Count 10.5 X10^3/uL (2.0-7.7); Basophil# 0.08 X10^3/uL; Basophil% 0.6 % (0-1); Eosinophil# 0.19 X10^3/uL; Eosinophils% 1.5 % (0-5); Hematocrit 34.8 % (37-47); Lymphocyte # 0.92 X10^3/ul (4.0); Lymphocyte % 7.3 % (19-41); Mean Corp Hgb Conc 31.6 g/dL (32-36); Mean Corpuscular Hgb 25.4 pg (27.0-32.0); Mean Corpuscular Volume 80.4 fL (81-99); Mean Platelet Vol. 8.8 fl (6.2-12.0); Monocyte# 0.91 X10^3/uL; Monocyte% 7.2 % (0-10); NRBC Flagged by Analyzer 0 % (0-5); Neutrophil # 10.52 X10^3/uL (2.7-7.7); Neutrophil % 82.9 % (47-70); Platelet Count 335 K/mm3 (150-450); RBC Distribution Width CV 13.7 % (11.6-14.6); Red Blood Count 4.33 M/mm3 (4.2-5.4); White Blood Count 12.7 K/mm3 (4.4-11.0)
[2020-05-15 14:39] LABS: Anion Gap 7 (5-15); BUN 11 mg/dL (7-18); BUN/Creat Ratio 13.4 RATIO (10-20); Calcium,Total 8.8 mg/dL (8.5-10.1); Chloride 104 mmol/L (98-107); Creatinine, Serum 0.82 mg/dL (0.55-1.02); EST Glomerular Filtration Rate 74 mL/min (>60); Est Glom Filt Rate - Afr Amer 90 mL/min (>60); Estimated Creatinine Clearance 50.93 ml/min; Glucose 135 mg/dL (74-106); Potassium 3.9 mmol/L (3.5-5.1); Sodium Level 135 mmol/L (136-145)
[2020-05-15 14:49] LABS: D-Dimer Quantitative (DVT/PE) > 20.00 FEU/ug/m (0.27-0.49)
--- NOTE | 2020-05-15 14:50 | CT_ITS ---
STUDY: CTA CHEST REASON FOR EXAM: Female, 64 years old. Dyspnea, abnormal d-dimer, hypoxia, adenocarcinoma rt lung RADIATION DOSAGE (If Supplied By Facility): CTDIvol = ( 4.7 ) mGy, DLP = ( 173.58 ) mGycm TECHNIQUE: The examination was performed with the intravenous administration of IV 100mL Isovue-300. Post-processing of the angiographic images was performed, with multiplanar reformation and 3D reconstruction. Individualized dose optimization techniques were used for this CT. COMPARISON: Comparison is made with prior study dated 04/06/2020. FINDINGS: Normal enhancement of the main pulmonary artery and right and left pulmonary arteries. Normal enhancement of the bilateral peripheral pulmonary arteries. There is no demonstrated pulmonary embolism. Normal thoracic aorta and visualized great vessels. There is no demonstrated aortic dissection. Normal heart and pericardium. Normal visualized trachea and bronchi. The lungs are well expanded. There now is evidence of a groundglass appearance in the anterior aspect of the right lower lobe. This is new as compared to prior study. There is a 6.6 cm x 6.6 cm mass in the right infrahilar region with evidence of post obstructive pneumonitis involving the posterior medial segment of the right lower lobe. The mass is essentially unchanged. Stable 1.5 cm irregular nodule in the anterolateral aspect of the right upper lobe. Normal pleura. Normal chest wall structures. There are degenerative changes of thoracic spine. Normal visualized upper abdomen. CT/CTA Chest W/WO Contrast IMPRESSION: Stable right hilar and infrahilar mass with postobstructive pneumonitis in the right lower lobe. New areas of groundglass appearance in the anterior aspect of the right lower lobe. Early infiltrate should be ruled out. There is no evidence of pulmonary embolism. Electronically Signed: Gilles Severino MD at 15:37 EST , Service support ,
[2020-05-15] MEDS: levoFLOXacin IV 750 MG/150 ML BAG 100 MG IV (16:03)
--- NOTE | 2020-05-15 16:45 | HP.PCM_ITS ---
Problem List (1) Hypoxia Status: Acute (2) Postobstructive pneumonia Status: Acute (3) Depression Status: Chronic (4) Hypertension Status: Chronic (5) Primary adenocarcinoma of upper lobe of right lung Status: Chronic (6) Hemoptysis Status: Chronic History of Present Illness Date of Admission: 05/15/20 Chief Complaint: Shortness of breath. The patient is a 64 year old F with past medical history as mentioned above presented to the emergency room because of shortness of breath. Her symptoms started yesterday with shortness of breath, mainly exertional, associated with hemoptysis, aggravated by activity, relieved with rest and no other associated symptoms. She mentioned that she has been having hemoptysis over the last couple of weeks since she was diagnosed with lung cancer 2 weeks ago. She denied fever or chills. She denied chest pain or palpitation. Reportedly, she was hypoxic at home today and her pulse ox was 87% on room air. She is supposed to go to [facility] this Thursday for evaluation for surgery for the lung can cer. In the emergency department, she was afebrile, blood pressure and heart rate are stable, pulse ox was 93% on 3 L. Routine blood work was remarkable for mild leukocytosis, hemoglobin 11 g/dL. BMP was unremarkable. D-dimer was highly elevated more than 20. EKG revealed normal sinus rhythm without evidence of acute ischemic changes. Troponin was negative. CTA chest done and showed right hilar and infrahilar mass with nonobstructive pneumonia in the right lower lobe, new groundglass opacities on the right lower lobe. She is being admitted for community-acquired pneumonia/postobstructive and hypoxia. Past Medical History Past Medical History (Chronic Problems): Chronic Problems (Last Reviewed 04/18/20 @ 11:37 by Holly Singletary) Depression (Chronic) Hypertension (Chronic) Primary adenocarcinoma of upper lobe of right lung (Chronic) Nodule of upper lobe of right lung (Chronic) Hemoptysis (Chronic) Right lower lobe lung mass (Chronic) Medical History: Medical History (Last Reviewed 04/18/20 @ 11:37 by Holly Singletary) Anxiety F41.9 History of melanoma Z85.820 No pertinent family history Z78.9 Hypertension I10 Allergies lisinopril Allergy (Verified 05/15/20 13:19) Other Home Medications: Ambulatory Orders Medication Instructions Recorded Citalopram [Celexa] 10 mg PO DAILY 04/06/20 Irbesartan [Avapro] 150 mg PO DAILY 04/06/20 Calcium (Elemental) [Os-Sumit 500] 500 mg PO DAILY@0800 04/10/20 Multivitamin with Minerals 1 ea PO DAILY 04/10/20 [Multiple Vitamin] Surgical History: Surgical History (Last Reviewed 04/18/20 @ 11:37 by Holly Singletary) No pertinent past surgical history Z78.9 Surgical History: no surgical history Psychiatric History: No pertinent psych 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 Lives: Spouse/ Significant Other Smoking Status: Former smoker Alcohol: None Drugs: None - *Family History Maternal Family History: Family History (Last Reviewed 04/18/20 @ 11:37 by Holly Singletary) Other No pertinent family history History Items: No pertinent history Paternal Family History: Family History (Last Reviewed 04/18/20 @ 11:37 by Holly Singletary) Other No pertinent family history History Items: No pertinent history Review of Systems Constitutional: Denies: Anorexia, Chills, Fever, Weakness Eyes: Denies: Blurred vision, Double vision, Drainage, Redness HEENT: Denies: Difficulty Hearing, Ear Pain, Eye Pain, Nasal Congestion, Sore Throat Cardiovascular: Denies: Chest Pain, Chest Pressure, Edema, Heaviness, Palpitations, Syncope Respiratory: Reports: Cough, Hemoptysis, Shortness of Breath, Shortness of breath upon exertion, Sputum production. Denies: Wheezing Gastrointestinal: Denies: Abdominal Pain, Constipation, Diarrhea, Nausea, Vomiting Genitourinary: Denies: Dysuria, Frequency, Hematuria Musculoskeletal: Denies: Arm Pain, Back Pain, Foot Pain Skin: Denies: Dryness, Rash Neurological: Denies: Balance problems, Double vision, Change in Speech, Slurred speech, Confusion Psychiatric: Reports: Depression. Denies: Anxiety Endocrine: Denies: Change in Body Habitus, Polydipsia, Polyuria VTE Information - Inpt Only VTE Present on Admission: No VTE Mechan Device Prophylaxis: None VTE Pharm Prophylaxis ordered?: Yes Patient Problems: Active and Suspected Problems (Last Reviewed 04/18/20 @ 11:37 by Holly Singletary) Hypoxia (Acute) Postobstructive pneumonia (Acute) - Physical Exam Vitals/I&O's: Vital Signs Temp Pulse Resp BP Pulse Ox 97.8 F 75 11 L 123/78 H 95 05/15/20 16:07 05/15/20 16:07 05/15/20 16:07 05/15/20 16:07 05/15/20 16:07 Oxygen Flow Rate (L/min) 3 Oxygen Delivery Method Room Air Weight: 149 lb 14.629 oz Body Mass Index (BMI) 28.3 General: Alert, Oriented x3, Cooperative, No apparent distress HEENT: Atraumatic, PERRLA, EOMI, Normocephalic Oral: Moist Mucosa, No Gingival or Mucosal Lesions/ Ulcerations Neck: Supple, No JVD, Negative Carotid Bruits, Trachea Midline, Thyroid Normal Size and Texture Lungs: Clear to auscultation, No rhonchi, No wheeze, No rales, Diminished, - - Decreased breath sounds bilateral, otherwise clear. Cardiovascular: Regular rate, Regular Rhythm, Normal S1, Normal S2, PMI Normal Abdomen: Bowel Sounds Present, Soft, Non Tender, Non-Distended, No Hepato- splenomegaly Extremities: No clubbing, No cyanosis, No edema Skin: No rashes, No breakdown Lymphatic: No Cervical, Supraclavicular, or Inguinal Adenopathy Neurological: Cranial nerves II-XII grossly intact, Motor Exam 5/5 strength throughout Psych/Mental Status: Normal Affect, Appropriate, Alert and oriented to time, place, person, mood and affect Microbiology Past 72 Hours 05/15/20 14:00 Mucosa - Nose SARS-CoV-2 Antigen (Rapid) - Final Laboratory Results 05/15/20 14:10: WBC 12.7 H, RBC 4.33, Hgb 11.0 L, Hct 34.8 L, MCV 80.4 L, MCH 25.4 L, MCHC 31.6 L, RDW Std Deviation 40.0, RDW Coeff of Fermin 13.7, Plt Count 335, MPV 8.8, Immature Gran % (Auto) 0.500, Neut % (Auto) 82.9 H, Lymph % (Auto) 7.3 L, Otero % (Auto) 7.2, Eos % (Auto) 1.5, Baso % (Auto) 0.6, Absolute Neuts (auto) 10.5 H, Absolute Lymphs (auto) 0.92, Nucleated RBC % 0 05/15/20 14:10: D-Dimer Quant (PE/DVT) > 20.00 H* 05/15/20 14:10: Sodium 135 L, Potassium 3.9, Chloride 104, Carbon Dioxide 24.0, Anion Gap 7, BUN 11, Creatinine 0.82, Estim Creat Clear Calc 50.93, Est GFR (MDRD) Af Amer 90, Est GFR (MDRD) Non-Af 74, BUN/Creatinine Ratio 13.4, Glucose 135 H, Calcium 8.8, Troponin I < 0.015 Clinical Impression(s) from Imaging Studies Chest X-Ray 05/15/20 14:20 IMPRESSION: Stable heterogeneous infiltration in the posterior segment of the right lower lobe. The patient is known to have a mass in the right infrahilar region with postobstructive pneumonitis. Electronically Signed: Gilles Severino MD at 14:55 EST , Service support , Chest CTA 05/15/20 14:50 IMPRESSION: Stable right hilar and infrahilar mass with postobstructive pneumonitis in the right lower lobe. New areas of groundglass appearance in the anterior aspect of the right lower lobe. Early infiltrate should be ruled out. There is no evidence of pulmonary embolism. Electronically Signed: Gilles Severino MD at 15:37 EST , Service support , Current Medications Levofloxacin (Levaquin Iv) 750 mg in 150 mls @ 100 mls/hr IV X1 ONE Stop: 05/15/20 17:12 Last Admin: 05/15/20 16:03 Dose: 100 mls/hr Documented by: Assessment/Plan All Active Problems (Last Reviewed 04/18/20 @ 11:37 by Holly Singletary) Hypoxia (Acute) Postobstructive pneumonia (Acute) This is a 64 years old female patient presented to the emergency room because of shortness of breath, found to have findings consistent with postobstructive pneumonia and she is being admitted for treatment. #1 right community-acquired pneumonia/postobstructive pneumonia/hypoxia: Chest x-ray and CTA chest reviewed. No evidence of sepsis or severe sepsis. Patient does have chronic hemoptysis that has been going on for couple of weeks. [facility] telemetry monitoring, continue oxygen to keep pulse ox around 92%, sputum culture, pneumococcal and Legionella antigen, start IV Levaquin, pulmonology consult, DuoNeb every 6 hours, albuterol as needed, incentive spirometer, repeat CBC and BMP tomorrow morning, PT OT evaluation and treatment. #2 recently diagnosed non-small cell lung cancer/adenocarcinoma: She is supposed to go to [facility] [place] this Thursday for evaluation for lung surgery. She has been following up with Dr. Resendez. #3 hypertension: Blood pressure stable, continue Avapro. #4 depression: Stable, continue Celexa. #5 DVT prophylaxis: Subcu Lovenox. This note was generated with [employer] dictation software. It may contain incorrect words, spelling, and punctuation that were not noted in checking the note before signing. Inpatient E&M: 16930 Init Hosp L3
[2020-05-15 18:00] LABS: International Normalized Ratio 1.2; Prothrombin Time (Protime)PT. 14.4 SECONDS (11.7-14.9)
[2020-05-15] MEDS: 0.9% Normal Saline 1,000 ML 75 ML IV (18:10)
[2020-05-15] MEDS: Ipratropium/Albuterol Sulfate 3 ML AMPUL.NEB INHALATION (19:45)
[2020-05-15] MEDS: Zolpidem Tartrate 5 MG Tablet PO (21:30)
[2020-05-16] VITALS (13 sets, daily range): BP systolic 122–137; BP diastolic 66–82; PULSE 71–89; RESP 16–20; TEMP 36.6–37.2; O2SAT 84–97
[2020-05-16] MEDS: Ipratropium/Albuterol Sulfate 3 ML AMPUL.NEB INHALATION ×3 (01:25→13:28)
--- NOTE | 2020-05-16 07:08 | VDLE_ITS ---
Reason For Study: Elevated D-dimer RIGHT LEFT GSV is normal. GSV is normal. CFV is compressible, spontaneous, phasic, CFV is compressible, spontaneous, phasic, competent and demonstrates normal competent, and demonstrates normal augmentation. augmentation. FV is compressible, spontaneous, phasic, FV is compressible, spontaneous, phasic, competent and demonstrates normal competent and demonstrates normal augmentation. augmentation. POP V is compressible, spontaneous, phasic, POP V is compressible, spontaneous, phasic, competent and demonstrates normal competent and demonstrates normal augmentation. augmentation. T/P Trunk is compressible. Acute deep vein thrombosis is noted in the Acute deep vein thrombosis is noted in the left T/P Trunk distal, PTV, PeroV, GastrocV right PTV, PeroV, GastrocV and SoleusV. and SoleusV. Procedure This is a venous duplex using B-mode, color flow and spectral Doppler. Exam performed portable in patient room. A preliminary report was called and/or faxed to MS3 RN. Interpretation Summary Acute deep venous thrombosis right posterior tibial, peroneal, gastrocnemius, and soleus veins. Acute deep venous thrombosis left tibioperoneal trunk, posterior tibial, peroneal, gastrocnemius, and soleus veins Patent and compressible bilateral great saphenous veins Ordering Physician: Medhat Serna Referring Physician: Jm Villagran M.D. Performed By: Krysten López RVT
[2020-05-16 07:17] LABS: Absolute Lymphocyte Count 1.04 X10^3/uL (0.83-4.51); Absolute Neutrophil Count 8.6 X10^3/uL (2.0-7.7); Basophil% 0.9 % (0-1); Eosinophil# 0.32 X10^3/uL; Eosinophils% 2.9 % (0-5); Hematocrit 35.1 % (37-47); Hemoglobin 10.6 g/dL (12.0-15.0); Lymphocyte # 1.04 X10^3/ul (4.0); Lymphocyte % 9.5 % (19-41); Mean Corp Hgb Conc 30.2 g/dL (32-36); Mean Corpuscular Hgb 25.4 pg (27.0-32.0); Mean Corpuscular Volume 84.2 fL (81-99); Mean Platelet Vol. 8.9 fl (6.2-12.0); Monocyte# 0.82 X10^3/uL; Monocyte% 7.5 % (0-10); NRBC Flagged by Analyzer 0 % (0-5); Neutrophil # 8.64 X10^3/uL (2.7-7.7); Neutrophil % 78.7 % (47-70); Platelet Count 299 K/mm3 (150-450); RBC Distribution Width CV 13.9 % (11.6-14.6); Red Blood Count 4.17 M/mm3 (4.2-5.4)
[2020-05-16 07:55] LABS: ALB/GLOB Ratio 0.7 RATIO (0.9-2.4); AST(SGOT) 17 U/L (15-37); Alanine Aminotransfer ALT/SGPT 16 U/L (13-56); Albumin, Serum 2.9 g/dL (3.2-5.0); Alkaline Phosphatase 78 U/L (45-117); Anion Gap 7 (5-15); BUN 9 mg/dL (7-18); BUN/Creat Ratio 13.1 RATIO (10-20); Calcium,Total 8.8 mg/dL (8.5-10.1); Chloride 106 mmol/L (98-107); Creatinine, Serum 0.68 mg/dL (0.55-1.02); EST Glomerular Filtration Rate 91 mL/min (>60); Est Glom Filt Rate - Afr Amer 110 mL/min (>60); Estimated Creatinine Clearance 41.76 ml/min; Globulin 4.3 g/dL (2.2-4.2); Glucose 100 mg/dL (74-106); Protein, Total 7.2 g/dL (6.4-8.2); Sodium Level 137 mmol/L (136-145)
--- NOTE | 2020-05-16 08:05 | PCM.CONS.PUL ---
Reason for Consult Date of Consultation: 05/16/20 Reason for Consultation: Acute hypoxemic respiratory insufficiency History of Present Illness: The patient is a 64-year-old female, with a history as outlined below, who presented to the emergency department on May 15 with some blood-streaked sputum and hypoxemia. The patient was initially evaluated by Dr. Calles in the pulmonary medicine clinic in March 2020 after she presented for evaluation of hemoptysis and a lung mass identified on chest CT. The patient was taken for bronchoscopy/EBUS several days later, which did reveal a fungating endobronchial mass in the right lower lobe which was quite friable and bled very easily. Biopsies were obtained at that time and consistent with poorly differentiated non-small cell carcinoma, favor adenocarcinoma. Pulmonary function studies recently completed at the end of March revealed evidence of a mild restrictive ventilatory impairment with symmetric reduction in diffusing capacity. On presentation to the emergency department, the patient was noted to be afebrile and hemodynamically stable. Laboratory evaluation revealed an elevated white blood cell count of 13,000. Coagulation profile revealed an elevated D-dimer. Chemistry profile was unremarkable. Troponin was negative. CTA chest showed no evidence for PE with stable appearing right infrahilar lung mass. The patient received some supplemental IV fluid hydration and was started on IV antimicrobials. She was subsequently admitted to the medical surgical floor for further management. This morning, the patient is resting comfortably without any significant shortness of breath. She states that her blood-streaked sputum resolved as of Thursday. The patient is apparently scheduled to undergo surgical resection of her lung cancer within the next week through [facility]. Past Medical History Past Medical History (Chronic Problems): Chronic Problems (Last Reviewed 04/18/20 @ 11:37 by Holly Singletary) Depression (Chronic) Hypertension (Chronic) Primary adenocarcinoma of upper lobe of right lung (Chronic) Nodule of upper lobe of right lung (Chronic) Hemoptysis (Chronic) Right lower lobe lung mass (Chronic) Medical History: Medical History (Last Reviewed 04/18/20 @ 11:37 by Holly Singletary) Anxiety F41.9 History of melanoma Z85.820 No pertinent family history Z78.9 Hypertension I10 Allergies lisinopril Adverse Reaction (Verified 05/15/20 16:55) COUGHING Home Medications: Ambulatory Orders Medication Instructions Recorded Citalopram [Celexa] 10 mg PO DAILY 04/06/20 Irbesartan [Avapro] 150 mg PO DAILY 04/06/20 Calcium (Elemental) [Os-Sumit 500] 500 mg PO DAILY@0800 04/10/20 Multivitamin with Minerals 1 ea PO DAILY 04/10/20 [Multiple Vitamin] Surgical History: Surgical History (Last Reviewed 04/18/20 @ 11:37 by Holly Singletary) No pertinent past surgical history Z78.9 Surgical History: no surgical history Psychiatric History: No pertinent psych hx 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 Lives: Spouse/ Significant Other Smoking Status: Former smoker Tobacco Use: Cigarettes Alcohol: None Drugs: None - *Family History Maternal Family History: Family History (Last Reviewed 04/18/20 @ 11:37 by oHlly Singletary) Other No pertinent family history History Items: No pertinent history Paternal Family History: Family History (Last Reviewed 04/18/20 @ 11:37 by Holly Singletary) Other No pertinent family history History Items: No pertinent history Review of Systems Constitutional: Denies: Chills, Fever Eyes: Denies: Blurred vision, Double vision HEENT: Denies: Head Aches, Sinus Congestion, Sinus Drainage Cardiovascular: Denies: Chest Pain, Palpitations Respiratory: Reports: Cough. Denies: Hemoptysis Gastrointestinal: Denies: Abdominal Pain, Nausea, Vomiting Genitourinary: Denies: Dysuria Musculoskeletal: Denies: Joint Pain, Joint Tenderness Skin: Denies: Rash, Wounds Neurological: Denies: Numbness, Tingling, Focal weakness Psychiatric: Denies: Anxiety, Depression, Homicidal Ideations, Suicidal Ideations Hematologic/ Lymphatic: Denies: Easy Bruising, Easy Bleeding Patient Problems: Active and Suspected Problems (Last Reviewed 04/18/20 @ 11:37 by Holly Singletary) Hypoxia (Acute) Postobstructive pneumonia (Acute) Objective: The patient's most recent lab work, culture data and imaging studies have all been personally reviewed. Rapid coronavirus antigen testing was negative. Strep and urine Legionella antigens were negative. - Physical Exam Vitals/I&O's: Vital Signs Temp Pulse Resp BP Pulse Ox 97.9 F 78 20 H 125/66 H 95 05/16/20 03:25 05/16/20 06:36 05/16/20 06:36 05/16/20 03:25 05/16/20 06:36 Oxygen Flow Rate (L/min) 2 Oxygen Delivery Method Nasal Cannula Weight: 150 lb 8 oz Body Mass Index (BMI) 28.4 Intake and Output for Last 24 Hours 05/14/20 05/15/20 05/16/20 23:59 23:59 23:59 Intake Total 150 / 500 1631.25 / 1631.25 Balance 150 / 500 1631.25 / 1631.25 General: Alert, Oriented x3, Cooperative, No apparent distress HEENT: Atraumatic, PERRLA, Normocephalic Oral: No Gingival or Mucosal Lesions/ Ulcerations Neck: Supple, No Nodes, Trachea Midline Lungs: - - Diminished air movement in the bilateral lung bases. Cardiovascular: Regular rate, Regular Rhythm Abdomen: Bowel Sounds Present, Soft, Non Tender Extremities: No clubbing, No cyanosis, No edema Skin: No breakdown Musculoskeletal: No Tenderness to Palpation of Joints or Extremities, No Muscle Wasting Lymphatic: No Cervical, Supraclavicular, or Inguinal Adenopathy Neurological: Cranial nerves II-XII grossly intact, Neuro grossly intact Psych/Mental Status: Alert and oriented to time, place, person, mood and affect Labs (Last 48 Hours) 05/15/20 05/15/20 05/15/20 14:10 14:10 14:10 WBC 12.7 H RBC 4.33 Hgb 11.0 L Hct 34.8 L MCV 80.4 L MCH 25.4 L MCHC 31.6 L RDW Std Deviation 40.0 RDW Coeff of Fermin 13.7 Plt Count 335 MPV 8.8 Immature Gran % (Auto) 0.500 Neut % (Auto) 82.9 H Lymph % (Auto) 7.3 L [place] % (Auto) 7.2 Eos % (Auto) 1.5 Baso % (Auto) 0.6 Absolute Neuts (auto) 10.5 H Absolute Lymphs (auto) 0.92 Nucleated RBC % 0 PT INR D-Dimer Quant (PE/DVT) > 20.00 H* Sodium 135 L Potassium 3.9 Chloride 104 Carbon Dioxide 24.0 Anion Gap 7 BUN 11 Creatinine 0.82 Estim Creat Clear Calc 50.93 Est GFR (MDRD) Af Amer 90 Est GFR (MDRD) Non-Af 74 BUN/Creatinine Ratio 13.4 Glucose 135 H Calcium 8.8 Total Bilirubin AST ALT Alkaline Phosphatase Troponin I < 0.015 Total Protein Albumin Globulin Albumin/Globulin Ratio 05/15/20 05/16/20 05/16/20 14:10 06:42 06:42 WBC 11.0 RBC 4.17 L Hgb 10.6 L Hct 35.1 L MCV 84.2 MCH 25.4 L MCHC 30.2 L RDW Std Deviation 43.0 RDW Coeff of Fermin 13.9 Plt Count 299 MPV 8.9 Immature Gran % (Auto) 0.500 Neut % (Auto) 78.7 H Lymph % (Auto) 9.5 L [place] % (Auto) 7.5 Eos % (Auto) 2.9 Baso % (Auto) 0.9 Absolute Neuts (auto) 8.6 H Absolute Lymphs (auto) 1.04 Nucleated RBC % 0 PT 14.4 INR 1.2 D-Dimer Quant (PE/DVT) Sodium 137 Potassium 4.0 Chloride 106 Carbon Dioxide 24.0 Anion Gap 7 BUN 9 Creatinine 0.68 Estim Creat Clear Calc 41.76 Est GFR (MDRD) Af Amer 110 Est GFR (MDRD) Non-Af 91 BUN/Creatinine Ratio 13.1 Glucose 100 Calcium 8.8 Total Bilirubin 0.30 AST 17 ALT 16 Alkaline Phosphatase 78 Troponin I Total Protein 7.2 Albumin 2.9 L Globulin 4.3 H Albumin/Globulin Ratio 0.7 L Microbiology 05/16/20 07:00 Urine, Clean Catch Legionella Antigen - Final 05/16/20 07:00 Urine, Clean Catch Streptococcus pneumoniae Antigen (M - Final 05/15/20 14:00 Mucosa - Nose SARS-CoV-2 Antigen (Rapid) - Final Clinical Impression(s) from Imaging Studies Chest X-Ray 05/15/20 14:20 IMPRESSION: Stable heterogeneous infiltration in the posterior segment of the right lower lobe. The patient is known to have a mass in the right infrahilar region with postobstructive pneumonitis. Electronically Signed: Gilles Severino MD at 14:55 EST , Service support , Chest CTA 05/15/20 14:50 IMPRESSION: Stable right hilar and infrahilar mass with postobstructive pneumonitis in the right lower lobe. New areas of groundglass appearance in the anterior aspect of the right lower lobe. Early infiltrate should be ruled out. There is no evidence of pulmonary embolism. Electronically Signed: Gilles Severino MD at 15:37 EST , Service support , Current Medications Acetaminophen (Acetaminophen 325 Mg Tablet) 650 mg PO Q6H PRN PRN PRN Reason: Pain Score 1-10/Temp > 100.7 F Albuterol Sulfate (Albuterol 2.5 Mg/3 Ml Vial.Neb.) 2.5 mg INHALATION Q4H PRN PRN PRN Reason: Shortness of breath, wheezing Albuterol/Ipratropium (Ipratropium/Albuterol Sulfate 3 Ml Ampul.Neb) 3 ml INHALATION Q6H.RT KRISTIAN Last Admin: 05/16/20 06:36 Dose: 3 ml Documented by: Citalopram Hydrobromide (Citalopram 10 Mg Tablet) 10 mg PO DAILY KRISTIAN Enoxaparin Sodium (Enoxaparin 30 Mg/0.3 Ml Syringe) 30 mg SC DAILY KRISTIAN Levofloxacin (Levaquin Iv) 750 mg in 150 mls @ 100 mls/hr IV Q24 KRISTIAN Losartan Potassium (Losartan Potassium 50 Mg Tablet) 50 mg PO DAILY KRISTIAN Ondansetron HCl (Ondansetron 4 Mg/2 Ml Vial) 4 mg IV Q8H PRN PRN PRN Reason: NAUSEA/VOMITING Senna/Docusate Sodium (Senna/Docusate Sodium 1 Tablet) 2 tablet PO BID PRN PRN PRN Reason: Constipation Zolpidem Tartrate (Zolpidem Tartrate 5 Mg Tablet) 5 mg PO QHS PRN PRN PRN Reason: INSOMNIA Last Admin: 05/15/20 21:30 Dose: 5 mg Documented by: Assessment/Plan All Active Problems (Last Reviewed 04/18/20 @ 11:37 by Holly Singletary) Hypoxia (Acute) Postobstructive pneumonia (Acute) RECOMMENDATIONS: 1. Continue Levaquin to complete 7 days of total treatment for potential postobstructive pneumonia. 2. Continue supplemental oxygen to maintain saturations at or above 90%. 3. Perform walking oximetry study prior to consideration for discharge home. 4. Obtain lower extremity Doppler study to evaluate for DVT, given elevated D-dimer. IMPRESSIONS: 1. Acute hypoxemic respiratory insufficiency The patient was recently diagnosed with non-small cell lung cancer after biopsies were completed of her right-sided lung mass. On bronchoscopy, the patient did have significant endobronchial involvement with near complete obstruction in her right lower lobe. Given that the patient presented with a new oxygen requirement and a mildly elevated white blood cell count, it is certainly reasonable to continue her on Levaquin for 7 days to treat for possible postobstructive pneumonia. I would recommend that she be continued on supplemental oxygen to maintain saturations at or above 90%. The patient did present with an elevated D-dimer level. However, CTA chest was negative for PE. While her malignancy could certainly be contributing to her elevation in her D-dimer level, for the sake of completeness will obtain lower extremity Dopplers to evaluate for the presence of DVTs, especially in light of the fact that the patient is scheduled to undergo surgical resection of her lung cancer within the next week. If Doppler studies are negative, the patient can be discharged home on supplemental oxygen and p.o. Levaquin to finish up her 7-day treatment course. 2. Primary lung cancer/restrictive ventilatory impairment on PFTs/hypertension Complicates care, management, recovery and prognosis. Continue home medications as indicated. The patient should follow-up with [facility] as scheduled for preoperative screening/evaluation, with plans to proceed with surgical resection of her lung cancer. CODE status: Discussed CODE status at length including difference between FULL code, DNR-CCA and DNR-CC status. Following discussions about the differences in these status, patient requested FULL CODE STATUS. Advanced Care Planning Face to Face Time: 12 minutes This note was generated with [employer] dictation software. It may contain incorrect words, spelling, and punctuation that were not noted in checking the note before signing. Inpatient E&M: 96183 Init Hosp L3 Procedures: 92427 Advncd Care Plan 30 Min
[2020-05-16] MEDS: levoFLOXacin IV 750 MG/150 ML BAG 100 MG IV (09:53)
[2020-05-16] MEDS: Citalopram 10 MG Tablet PO (09:56)
[2020-05-16] MEDS: Losartan Potassium 50 MG Tablet PO (09:56)
--- NOTE | 2020-05-16 10:13 | NURSING ---
incorrect dose of lovenox in pt med drawer, will verify w/ Rx of actual dose to be given
--- NOTE | 2020-05-16 10:30 | NURSING ---
pt ambulatory in [place] w/ therapy pox dropped to 84% on 2l, turned to 4l at rest, quickly returned to 95% and turned back to 2l via n/c
--- NOTE | 2020-05-16 10:50 | CASEMGMT ---
SHANNON GUTIERREZ Face to Face with patient for initial transition planning/care coordination assessment. RN BRENDA introduced self and role at [facility]. Patient sitting up in chair, alert and oriented. Patient willing to participate in assessment and is able to answer all questions appropriately. Care providers, pharmacy, and demographics verified. Patient wishes to discharge home, denies need for home health at this time. Patient states she has no further needs or concerns at this time. CM to follow for discharge planning needs that may arise. PCP: Tyshawn Specialists: Stevan, golf caddie; Mal, oncologist; Stanislav, surgeon at [facility] Preferred Pharmacy: [facility] Insurance: O Medicare Prescription Benefit: yes Living Will/HPOA: yes, yes, LNOK: daughter Living Arrangements: Pt lives with in a single story home with 2 steps to enter without rail. Patient reports she was independent at home. Transportation: self//daughter DME/HHC: Patient reports her has DME in the home. They have a walker and cane. She states if she needs O2 or nebulizers, she prefers [employer] as her supplier as this is who her uses. She denies need for list of providers. Patient has not had any previous HHC. Disposition Plan: Pt to dc home with family support and follow up plans in place. Will monitor for home oxygen.
[2020-05-16] MEDS: Enoxaparin 40 MG/0.4 ML Syringe SC (11:07)
[2020-05-16] MEDS: Enoxaparin 30 MG/0.3 ML Syringe SC (14:07)
[2020-05-16 15:47] LABS: Partial Thromboplast Time 39.2 Seconds (24.1-36.2)
--- NOTE | 2020-05-16 15:50 | NURSING ---
decision made to transfer pt to [facility] for continuing treatment
[2020-05-16] MEDS: LORazepam 0.5 MG Tablet PO (20:29)
--- NOTE | 2020-05-18 15:12 | PCM.DC.SUM ---
Discharge Date and Diagnosis - Problem List Patient Problems: Active and Suspected Problems (Last Reviewed 04/18/20 @ 11:37 by Holly Singletary) Hypoxia (Acute) Postobstructive pneumonia (Acute) Date of Admission: 05/15/20 Date of Discharge: 05/16/20 - Primary Discharge Diagnosis Acute Problems: Active Problems (Last Reviewed 04/18/20 @ 11:37 by Holly Singletary) Acute hypoxia secondary to postobstructive pneumonia from lung cancer Postobstructive pneumonia due to lung cancer (adenocarcinoma) Deep venous thrombosis of the right and left legs-present on admission Essential hypertension - Secondary Discharge Diagnosis Chronic Problems: Chronic Problems (Last Reviewed 04/18/20 @ 11:37 by Holly Singletary) Depression (Chronic) Hypertension (Chronic) Primary adenocarcinoma of upper lobe of right lung (Chronic) Nodule of upper lobe of right lung (Chronic) Hemoptysis (Chronic) Right lower lobe lung mass (Chronic) Hospital Course and Treatment Operations: None Procedures: None Summary of Care Provided: The patient is a 64 year old F was seen in the emergency room at [facility] with a chief complaint of progressive shortness of breath, patient was recently diagnosed with right-sided adenocarcinoma of the lung, she is not on oxygen at home. Patient stated that her pulse ox at home was 87% on room air. Work-up included a chest x-ray which showed what appeared to be right lower lobe postobstructive infiltrate, CT of the chest was performed which shows no PE but showed evidence of right lower lobe lung cancer with post mass obstruction and suspected infiltrate. D-dimer was elevated greater than 20. Covid test was negative. Patient's white blood cell count was elevated at 12.7. Patient was admitted to [place] [id number] with postobstructive pneumonia due to lung cancer, she was placed on IV antibiotics and seen by pulmonary medicine who ordered a venous duplex scan of her legs due to elevated D-dimer. This test resulted in showing bilateral deep venous thrombosis of both legs, discussion was carried out with the patient's thoracic surgeon and [place] and he requested the patient be transferred to his service at the [facility] for further care. On 05/16/2020, patient was seen and examined: On examination she appeared her stated age, she does not appear to be in any distress. Vital signs as documented. Skin warm and dry and without overt rashes. Neck without JVD, thyroid appears normal, trachea is midline, neck is supple. Lungs clear, normal air movement was noted. Heart exam notable for regular rhythm, normal sounds and absence of murmurs, rubs or gallops. Abdomen unremarkable and without evidence of organomegaly, masses, or abdominal aortic enlargement, bowel sounds are present in all 4 quadrants, no abdominal tenderness was noted. Extremities nonedematous, no cyanosis was noted, no clubbing was noted. Neuro: Cranial nerves II through XII are grossly intact, no focal motor deficits were noted, sensation to light touch and pinprick is intact, motor exam 5/5 throughout. Psych: Patient is alert and oriented x3, she does not appear anxious or depressed, she does not appear agitated. On 05/16/2020, patient was seen and examined and transferred to the [facility] for further care in stable condition. Patient Problems: Active and Suspected Problems (Last Reviewed 04/18/20 @ 11:37 by Holly Singletary) Hypoxia (Acute) Postobstructive pneumonia (Acute) - Physical Exam Vitals/I&O's: Vital Signs Temp Pulse Resp BP Pulse Ox 98.6 F 83 18 127/82 H 95 05/16/20 19:53 05/16/20 19:53 05/16/20 19:53 05/16/20 19:53 05/16/20 19:53 Oxygen Flow Rate (L/min) 4 Oxygen Delivery Method Nasal Cannula Weight: 68.266 kg Body Mass Index (BMI) 28.4 Intake and Output for Last 24 Hours 05/16/20 05/17/20 05/18/20 23:59 23:59 23:59 Intake Total 3181.25 / 3181.25 Output Total 600 / 600 Balance 2581.25 / 2581.25 Microbiology Past 72 Hours 05/16/20 13:30 Sputum, Expectorated/Coughed Gram Stain - Final 05/16/20 13:30 Sputum, Expectorated/Coughed Respiratory Culture - Preliminary Appears to be normal respiratory [place]. Further studies to follow. 05/16/20 07:00 Urine, Clean Catch Legionella Antigen - Final 05/16/20 07:00 Urine, Clean Catch Streptococcus pneumoniae Antigen (M - Final 05/15/20 14:00 Mucosa - Nose SARS-CoV-2 Antigen (Rapid) - Final Home Medications: Medications to take at Discharge Citalopram [Celexa] 10 mg PO DAILY 04/06/20 Irbesartan [Avapro] 150 mg PO DAILY 04/06/20 Calcium (Elemental) [Os-Sumit 500] 500 mg PO DAILY@0800 04/10/20 Multivitamin with Minerals [Multiple Vitamin] 1 ea PO DAILY 04/10/20 Levalbuterol HCl [Xopenex] 05/16/20 Primary Care Physician: Jm Villagran MD [Primary Care Provider] - Disposition: Acute care Hospital Minutes spent on discharge:: 31 Patient Condition:: Stable Medical Necessity - Tobacco Use Smoking Status: Former smoker Tobacco Use: Cigarettes Meaningful Use Info Meaningful Use Diagnoses (Choose all that apply): VTE - VTE Anticoag overlap given w/in hospital stay or rx'd at dc?: No Pt receive overlap for 5 days?: No Reason overlap not ordered, prescribed, or given for 5 days: Treatment Not Indicated Inpatient E&M: 24273 Disch Hosp
== END 2020-05-16 20:31 | disposition short-term general hospital (02) | DRG 194 ==
LOC: ED 14:03 → MS3 15:59
PROVIDERS: Internal Medicine Critical Care Medicine; Admitting Provider Hospitalist; Emergency Provider Emergency Medicine; PCP Internal Medicine; Visit Provider Internal Medicine
DX: J18.9 Pneumonia, unspecified organism (principal); C34.11 Malignant neoplasm of upper lobe, right bronchus or lung; R04.2 Hemoptysis; I82.443 Acute embolism and thrombosis of tibial vein, bilateral; I82.453 Acute embolism and thrombosis of peroneal vein, bilateral; I82.493 Acute embolism and thrombosis of other specified deep vein of lower extremity, bilateral; I82.463 Acute embolism and thrombosis of calf muscular vein, bilateral; R09.02 Hypoxemia; Z20.822 Contact with and (suspected) exposure to COVID-19; I10 Essential (primary) hypertension; F32.9 Major depressive disorder, single episode, unspecified; F41.9 Anxiety disorder, unspecified; Z79.899 Other long term (current) drug therapy; Z85.820 Personal history of malignant melanoma of skin; Z87.891 Personal history of nicotine dependence
CPT/HCPCS: 36415; 71045; 71275; 80048; 80053; 84484; 85025; 85379; 85610; 85730; 87070; 87205; 87426; 87449; 93005; 93970; 94640; 97161; 99251; 99284; J7030; J7050; Q9967; A4216; G0463

== ENCOUNTER 2020-07-10 13:38 | Emergency (ER) | payer MEDICARE, SELFPAY ==
[2020-06-14 13:08] VITALS: BMI 27.5
[2020-07-10] VITALS (10 sets, daily range): BP systolic 133–146; BP diastolic 86–92; PULSE 86–93; RESP 16–26; TEMP 36.3–36.8; O2SAT 94–98; BMI 27.2
--- NOTE | 2020-07-10 13:39 | EKG12_ITS ---
Test Reason : Blood Pressure : / mmHG Vent. Rate : 092 BPM Atrial Rate : 092 BPM P-R Int : 162 ms QRS Dur : 086 ms QT Int : 376 ms P-R-T Axes : 060 -22 036 degrees QTc Int : 464 ms Normal sinus rhythm Nonspecific T wave abnormality Abnormal ECG Confirmed by JASON MEEK, MARIA L ([id number]), marketing editor LINCOLN BETANCOURT ([id number]) on 07/13/2020 8:02:49 AM Referred By: LEYDI Confirmed By:SAEED GOMEZ MD
--- NOTE | 2020-07-10 13:39 | CT_ITS ---
STUDY: CTA HEAD AND NECK WITH CONTRAST REASON FOR EXAM: Female, 64 years old. Neuro deficit, acute, stroke suspected RADIATION DOSAGE (If Supplied By Facility): CTDIvol = ( 17.96 ) mGy, DLP = ( 706.33 ) mGycm TECHNIQUE: CT angiography was performed with a multi-detector CT scanner. Data acquisition was obtained from the skull base through the vertex following intravenous administration of IV 100mL Isovue-370. MIP images were reconstructed from the axial data set. Post-processing of the angiographic images was performed, with multiplanar reformation and 3D reconstruction. Individualized dose optimization techniques were used for this CT. COMPARISON: No relevant priors. FINDINGS: Normal bilateral petrous carotid arteries. There is calcified plaque formation of the right cavernous carotid artery, with a mild stenosis (less than 50%). Normal left cavernous carotid artery with a normal supraclinoid bifurcation. Normal right A1 segments of the anterior cerebral artery. Normal left A1 segments of the anterior cerebral artery. Normal intact anterior communicating artery (ACOM). Normal bilateral A2 segments of the anterior cerebral arteries. There is diminished flow within the proximal M2 segments extending to the M3 segments within the right MCA territory consistent with underlying ischemia with no definitive focal cut off. Normal left M1 and M2 segments of the middle cerebral arteries, with a normal M1 bifurcation. Normal right posterior communicating artery (PCOM). There is a persistent origin of the left posterior cerebral artery with absence of the posterior communicating artery (PCOM). Right V4 segment is small compared to the left. Basilar artery is small possibly due to origin. Hhe visualized bilateral superior cerebellar (SCA) arteries are normal. Normal bilateral P1, P2 and visualized P3 segments of the posterior cerebral arteries. There is no demonstrated aneurysm of the [place]. There is no demonstrated abnormality of the visualized brain. AORTIC ARCH: Normal visualized aortic arch. Normal origins of the brachiocephalic, left common carotid, and left subclavian arteries. RIGHT CAROTID ARTERIES: Normal right common carotid artery (CCA). Normal right common carotid bulb. Normal origin of the right internal carotid (ICA) artery without a hemodynamically significant stenosis. Normal visualized cervical portion of the right internal carotid artery. Normal origin of the right external carotid artery (ECA). LEFT CAROTID ARTERIES: Normal left common carotid artery (CCA). Normal left common carotid bulb. Normal origin of the left internal carotid (ICA) artery without a hemodynamically significant stenosis. Normal visualized cervical portion of the left internal carotid artery. Normal origin of the left external carotid artery (ECA). VERTEBRAL ARTERIES: Small right vertebral artery compared to the left. CT/STROKE CTA Head AND Neck W/Con IMPRESSION: 1. Findings consistent with diminutive flow within the right proximal M2 segments extending to the right MCA territory possibly due to embolic phenomenon and corresponding to clinical findings of acute ischemia. Electronically Signed: Kj Green DO at 14:12 EDT , Service support ,
--- NOTE | 2020-07-10 13:39 | RAD_ITS ---
STUDY: X-RAY CHEST REASON FOR EXAM: Female, 64 years old. Neuro deficit, acute, stroke suspected TECHNIQUE: Single AP portable view of the chest. COMPARISON: 05/15/2020 FINDINGS: The lungs are clear and expanded. There is no demonstrated pleural abnormality. Normal size heart. Normal mediastinum and rola. Normal visualized pulmonary arteries. Normal visualized aortic arch and descending thoracic aorta. Normal visualized thoracic spine. Normal visualized ribs, clavicles, and shoulders. There is no demonstrated abnormality of the visualized soft tissue structures of the upper abdomen. RAD/Chest 1 View IMPRESSION: Normal x-ray examination of the chest. Electronically Signed: Ramon Barillas MD at 14:59 EDT Tel , Service support ,
--- NOTE | 2020-07-10 13:39 | CT_ITS ---
We are attempting to reach an attending provider to discuss findings. An addendum with communication details will be sent when the communication is complete. STUDY: CT HEAD STROKE PROTOCOL W/O CONTRAST INJECTION REASON FOR EXAM: Female, 64 years old. Neuro deficit, acute, stroke suspected RADIATION DOSAGE (If Supplied By Facility): CTDIvol = ( 44 ) mGy, DLP = ( 829 ) mGycm TECHNIQUE: Transaxial CT imaging of the brain was performed without administration of intravenous contrast material. Individualized dose optimization techniques were used for this CT. COMPARISON: No relevant priors. FINDINGS: Normal soft tissue structures. Normal calvarium. Hypodense region within the right parietal lobe extending along the posterior aspect of the insular ribbon concerning for underlying right posterior MCA infarct with region measuring approximately 2.5 x 1.5 cm. There is mild extension into the temporal region. Normal white matter tracts of the cerebral hemispheres. Normal basal ganglia and thalami. Normal brainstem. Normal cerebellum. There is no intracranial hemorrhage. There are no findings of an acute ischemic infarction. Normal visualized paranasal sinuses. ASPECT score: 8 CT/STROKE Brain/Head without Cont IMPRESSION: Findings consistent with acute ischemia within the right posterior MCA territory extending to the temporal lobe region with no evidence of acute intracranial bleed. Electronically Signed: Kj Green DO at 13:56 EDT , Service support ,
--- NOTE | 2020-07-10 13:56 | ED.DCSUM_ITS ---
History of Present Illness Chief Complaint: Neuro S/Sx Informant: Patient, Family, Instantizer Operator Onset: Today Context: Sudden Onset Timing: Continuous Narrative: 64-year-old female presenting as a prehospital stroke alert. The patient was with family when she suddenly developed left-sided weakness. EMS notes no hypoglycemia. 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 She did take her dose this morning. She has a history of adenocarcinoma of the lung. She received chemotherapy yesterday. She reportedly had a normal creatinine in April. After a brief ambulance bay evaluation she was taken directly to CT scan. - Past Medical History (1) Depression Status: Chronic (2) Hypertension Status: Chronic (3) Primary adenocarcinoma of upper lobe of right lung Status: Chronic Past Medical History - Allergies and Home Meds Allergies/Adverse Reactions: Allergies albuterol Adverse Reaction (Verified 06/14/20 13:07) Other lisinopril Adverse Reaction (Verified 06/14/20 13:07) COUGHING Primary Care Physician: Jm Villagran MD [Primary Care Provider] - Past Medical History: - - DVT/PE Surgical History: no surgical history Smoking Status: Former smoker Drugs: None - Family History Maternal Family History: Family History (Last Reviewed 06/14/20 @ 13:20 by Margarita Zuleta MILLWRIGHT APPRENTICE, MILLWRIGHT APPRENTICE-C) Other No pertinent family history Family History: Reports: No pertinent history Paternal Family History: Family History (Last Reviewed 06/14/20 @ 13:20 by Margarita Zuleta NP, MILLWRIGHT APPRENTICE-C) Other No pertinent family history Family History: Reports: No pertinent history Review of Systems General: Denies: Chills, Fever, Sweats Eyes: Denies: Visual changes - bilaterally, Diplopia ENT: Denies: Rhinorrhea, Sore throat Cardiovascular: Denies: Chest pain, Palpitations Respiratory: Denies: Dyspnea, Cough, Dyspnea on exertion Gastrointestinal: Denies: Abdominal pain, Nausea, Vomiting, Diarrhea, Melena, Hematochezia Genitourinary: Denies: Dysuria, Hematuria, Frequency Musculoskeletal: Denies: Back pain, Extremity Pain Skin: Denies: Rash, Wounds Neurological: Reports: Weakness, Parasthesia, Numbness. Denies: Headache STROKE Vital Signs/Narrative: Vital Signs Temp Pulse Resp BP Pulse Ox 07/10/20 13:53 97.3 F L 91 24 H 145/89 H 96 07/10/20 13:40 97.3 F L 89 25 H 94 Inital Vital Signs reviewed: Yes - NIHSS Initial 1a Level of Consciousness: 0 1b LOC Questions (Score 2 if aphasic/stupor): 0 1c LOC Commands (Only score 1st attempt): 0 2 Best Gaze (If aphasic, use reflexive mvmts.): 0 3 Visual: 2 4 Facial Palsy: 3 5 Motor Arm Right (UN = amputation/fusion): 0 5 Motor Arm Left: 4 6 Motor Leg Right: 0 6 Motor Leg Left: 4 7 Limb ataxia (Only + if out of proportion): 0 8 Sensory (Aphasia/stupor=0 or 1, coma=2): 2 9 Best Language: 0 10 Dysarthria (mute, coma=2, intubated=UN): 0 11 Extinction and Inattention (only scored if +): 2 Total Score: 17 General: Well nourished, Well developed Head: Normocephalic, Atraumatic Eyes: Perrl, - - Apparent forced eye deviation to the right ENT: Moist mucous membranes, No rhinorrhea Neck: Supple, Nontender Cardiovascular: Regular rate, Regular rhythm, No murmurs Respiratory: No distress, CTA bilaterally, Chest nontender Abdomen: Soft, Nontender, Nondistended, Normal bowel sounds Back: Nontender, Normal Inspection Extremities: Nontender, No edema Skin: Normal color, No rash Neurological: Alert, Oriented x3 Psychological: Tearful Diagnostic/Tx/Re-eval Clinical Impression(s) from Imaging Studies Brain CT 07/10/20 13:39 IMPRESSION: Findings consistent with acute ischemia within the right posterior MCA territory extending to the temporal lobe region with no evidence of acute intracranial bleed. Electronically Signed: Kj Green DO at 13:56 EDT , Service support , ADDENDUM: 07/10/20 8680 IMPRESSION: Findings consistent with acute ischemia within the right posterior MCA territory extending to the temporal lobe region with no evidence of acute intracranial bleed. N.B. : The above information has been verbally conveyed by Kj Green DO to Brady Fonseca MD, on 07/10/2020 13:57:48 (ET). Electronically Signed: Kj GreenDO at 13:56 EDT , Service support , Head/Neck CTA 07/10/20 13:39 IMPRESSION: 1. Findings consistent with diminutive flow within the right proximal M2 segments extending to the right MCA territory possibly due to embolic phenomenon and corresponding to clinical findings of acute ischemia. Electronically Signed: Kj GreenDO at 14:12 EDT , Service support , ADDENDUM: 07/10/20 1419 IMPRESSION: 1. Findings consistent with diminutive flow within the right proximal M2 segments extending to the right MCA territory possibly due to embolic phenomenon and corresponding to clinical findings of acute ischemia. Electronically Signed: Kj DO Peter at 14:12 EDT , Service support , Laboratory Last Values WBC 4.3 K/mm3 (4.4-11.0) L 07/10/20 13:28 RBC 4.13 M/mm3 (4.2-5.4) L 07/10/20 13:28 Hgb 10.2 g/dL (12.0-15.0) L 07/10/20 13:28 Hct 31.8 % (37-47) L 07/10/20 13:28 MCV 77.0 fL (81-99) L 07/10/20 13:28 MCH 24.7 pg (27.0-32.0) L 07/10/20 13:28 MCHC 32.1 g/dL (32-36) 07/10/20 13:28 RDW Std Deviation 52.6 fl (35.1-43.9) H 07/10/20 13:28 RDW Coeff of Fermin 20.5 % (11.6-14.6) H 07/10/20 13:28 Plt Count 155 K/mm3 (150-450) 07/10/20 13:28 MPV 9.2 fl (6.2-12.0) 07/10/20 13:28 Immature Gran % (Auto) 0.700 % (0.0-0.9) 07/10/20 13:28 Neut % (Auto) 87.7 % (47-70) H 07/10/20 13:28 Lymph % (Auto) 3.3 % (19-41) L 07/10/20 13:28 [place] % (Auto) 5.2 % (0-10) 07/10/20 13:28 Eos % (Auto) 1.9 % (0-5) 07/10/20 13:28 Baso % (Auto) 1.2 % (0-1) H 07/10/20 13:28 Absolute Neuts (auto) 3.7 X10^3/uL (2.0-7.7) 07/10/20 13:28 Absolute Lymphs (auto) 0.14 X10^3/uL (0.83-4.51) L 07/10/20 13:28 Nucleated RBC % 0 % (0-5) 07/10/20 13:28 PT 14.6 SECONDS (11.7-14.9) 07/10/20 13:28 INR 1.2 07/10/20 13:28 APTT 29.5 Seconds (24.1-36.2) 07/10/20 13:28 Sodium 135 mmol/L (136-145) L 07/10/20 13:28 Potassium 3.0 mmol/L (3.5-5.1) L 07/10/20 13:28 Chloride 98 mmol/L (98-107) 07/10/20 13:28 Carbon Dioxide 29.0 mmol/L (21.0-32.0) 07/10/20 13:28 Anion Gap 8 (5-15) 07/10/20 13:28 BUN 15 mg/dL (7-18) 07/10/20 13:28 Creatinine 0.78 mg/dL (0.55-1.02) 07/10/20 13:28 Estim Creat Clear Calc 41.76 ml/min 07/10/20 13:28 Est GFR (MDRD) Af Amer 94 mL/min (>60) 07/10/20 13:28 Est GFR (MDRD) Non-Af 78 mL/min (>60) 07/10/20 13:28 BUN/Creatinine Ratio 19.1 RATIO (10-20) 07/10/20 13:28 Glucose 100 mg/dL (74-106) 07/10/20 13:28 Calcium 8.9 mg/dL (8.5-10.1) 07/10/20 13:28 Troponin I 1.390 ng/mL (<0.045) H* 07/10/20 13:28 - EKG Initial EKG Interpretation: Sinus Rhythm - Medical Decision Making Stroke Team Activated: Yes Reviewed Inclusion/Exclusion criteria: Yes Was Patient considered for Endovascular Intervention?: Yes IV Alteplase (t-PA) Administered: No No contraindications for IV Alteplase (t-PA) administration.: No Alteplase (t-PA) risks, benefits, alternative discussed: No Not given: Patient refusal: No Hospital stroke team was called. She is on Eliquis and therefore not a TPA candidate. She has evidence of M2 and M3 occlusion and is reportedly a candidate for possible endovascular care at [facility]. We are working to rapidly arrange transport by air there. Her EKG is a normal sinus rhythm with nonspecific T wave abnormality at a rate of 82. I do not see any concerning features of ACS however her troponin is elevated greater than 1. Critical care time (excluding procedures): 30-74 minutes - 35 min -discussing with patient and family and caregivers, arranging transfer, discussing with consultants, and performing direct patient care at bedside ED Disposition - Plan for ED Patient: Disposition: [facility] Diagnosis: Acute embolic stroke, Elevated troponin Referrals: Jm Villagran MD [Primary Care Provider] -
[2020-07-10 13:58] LABS: Absolute Lymphocyte Count 0.14 X10^3/uL (0.83-4.51); Absolute Neutrophil Count 3.7 X10^3/uL (2.0-7.7); Basophil# 0.05 X10^3/uL; Basophil% 1.2 % (0-1); Eosinophil# 0.08 X10^3/uL; Eosinophils% 1.9 % (0-5); Hematocrit 31.8 % (37-47); Hemoglobin 10.2 g/dL (12.0-15.0); Lymphocyte # 0.14 X10^3/ul (0.83-4.51); Lymphocyte % 3.3 % (19-41); Mean Corp Hgb Conc 32.1 g/dL (32-36); Mean Corpuscular Hgb 24.7 pg (27.0-32.0); Mean Platelet Vol. 9.2 fl (6.2-12.0); Monocyte# 0.22 X10^3/uL; Monocyte% 5.2 % (0-10); NRBC Flagged by Analyzer 0 % (0-5); Neutrophil # 3.73 X10^3/uL (2.7-7.7); Neutrophil % 87.7 % (47-70); POSITIVE DIFFERENTIAL YES; POSITIVE MORPHOLOGY YES; Platelet Count 155 K/mm3 (150-450); RBC Distribution Width CV 20.5 % (11.6-14.6); RBC Distribution Width SD 52.6 fl (35.1-43.9); Red Blood Count 4.13 M/mm3 (4.2-5.4); White Blood Count 4.3 K/mm3 (4.4-11.0)
[2020-07-10 14:01] LABS: Differential Indicated SCAN CRITERIA MET
[2020-07-10 14:10] LABS: International Normalized Ratio 1.2; Partial Thromboplast Time 29.5 Seconds (24.1-36.2); Prothrombin Time (Protime)PT. 14.6 SECONDS (11.7-14.9)
[2020-07-10 14:20] LABS: Anion Gap 8 (5-15); BUN 15 mg/dL (7-18); BUN/Creat Ratio 19.1 RATIO (10-20); Calcium,Total 8.9 mg/dL (8.5-10.1); Chloride 98 mmol/L (98-107); Creatinine, Serum 0.78 mg/dL (0.55-1.02); EST Glomerular Filtration Rate 78 mL/min (>60); Est Glom Filt Rate - Afr Amer 94 mL/min (>60); Estimated Creatinine Clearance 41.76 ml/min; Glucose 100 mg/dL (74-106); Sodium Level 135 mmol/L (136-145)
[2020-07-10 14:27] LABS: Anisocytosis 1+
--- NOTE | 2020-07-10 14:45 | CM.ED ---
SW Consult Stroke Alert [facility] met with patient's daughter, Es, and introduced self to her. Patient had just returned from [place]. SW advised if there was any additional services to provide to patient and family to contact [facility].
--- NOTE | 2020-07-10 14:57 | CHAPLAIN ---
Type of Pastoral Visit ___ Initial Visit ___ Follow-up Visit ___ On-call Visit ___ General Patient Visit ___ Spiritual Assessment ___ Family Conference ___ Bereavement _x__ Rapid Response ___ Code Blue ___ Other (describe below) Pastoral Care Referral From ___ Patient ___ Family _x__ Nurse ___ Physician ___ Poultry Debeaker ___ [place] ___ Other (describe below) Sacrament/Intervention ___ Active listening ___ Anointing ___ Oriental Orthodox ___ Bereavement ___ Communion ___ Vandana exploration ___ ___ Life review _x__ Prayer ___ Reconciliation ___ Sacrament of Sick _x__ Supportive presence ___ Wedding ___ Other (describe below) Pastoral Comments patient is to be transferred out by life flight; daughter is with patient; both readily accept support through presence and prayer; offer of continued support as desired
--- NOTE | 2020-07-10 15:18 | ED.RN ---
Pt is going to [facility] by flight. was speaking with Jenny on the call for transfer. [facility] states that pt transfer was not being coordinated by them. [facility] has been called to transfer pt to [facility]
--- NOTE | 2020-07-10 16:04 | ED.RN ---
PT OFF UNIT WITH MED FLIGHT AT 1605
--- NOTE | 2020-07-10 16:24 | ED.RN ---
per lawanda alves coordinator was on the line with the dr and they said they were going to coordinate the transfer. Lawanda was going to contact [facility]
[2020-07-11 13:23] LABS: Pathologist Review Reviewed
== END 2020-07-10 16:25 | disposition short-term general hospital (02) ==
PROVIDERS: Emergency Provider Emergency Medicine; PCP Internal Medicine
DX: I63.411 Cerebral infarction due to embolism of right middle cerebral artery (principal); G81.94 Hemiplegia, unspecified affecting left nondominant side; R29.717 NIHSS score 17; C34.90 Malignant neoplasm of unspecified part of unspecified bronchus or lung; R79.89 Other specified abnormal findings of blood chemistry; I10 Essential (primary) hypertension; Z79.01 Long term (current) use of anticoagulants; Z79.899 Other long term (current) drug therapy; Z86.718 Personal history of other venous thrombosis and embolism; Z86.711 Personal history of pulmonary embolism; Z87.891 Personal history of nicotine dependence
CPT/HCPCS: 70450; 70496; 70498; 71045; 80048; 84484; 85025; 85610; 85730; 93005; 99285; Q9967; A4216

== ENCOUNTER 2020-10-12 15:54 | Inpatient (IN) | payer MEDICARE, SELFPAY ==
[2020-07-10 13:52] VITALS: BMI 27.2
[2020-10-12] VITALS (11 sets, daily range): BP systolic 92–124; BP diastolic 59–72; PULSE 88–102; RESP 16–32; TEMP 36.3–37.2; O2SAT 94–97; BMI 28.3; BMI 25.8
--- NOTE | 2020-10-12 16:25 | EKG12_ITS ---
Test Reason : SOB Blood Pressure : / mmHG Vent. Rate : 102 BPM Atrial Rate : 102 BPM P-R Int : 114 ms QRS Dur : 074 ms QT Int : 338 ms P-R-T Axes : 022 033 026 degrees QTc Int : 440 ms Sinus tachycardia Anterior infarct , age undetermined , cannot be excluded Abnormal ECG Confirmed by MARY JO MEEK, SHALA ([id number]), publication editor LINCOLN BETANCOURT ([id number]) on 10/16/2020 10:20:54 AM Referred By: Confirmed By:SHALA CAMARGO MD
--- NOTE | 2020-10-12 16:26 | ED.VIS.DYS ---
HPI History of Present Illness Chief Complaint: Shortness of Breath Informant: patient and family Narrative Narrative: 64-year-old female presents to the emergency department with dyspnea. Patient is currently at rehab facility for stroke she sustained late in the winter. This left her with left-sided deficits. 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 She has no known other lung conditions. She has an IVC filter and known DVT in the legs. She is on Lovenox injections. No known cardiac or renal issues. Rehab has been going well and she has been improving in her swallowing. She does have a PEG tube present. Physical therapy has been going well and she has regained some sensation on the left arm. No reported fevers. Over the past week she has become more dyspneic. She was placed on supplemental oxygen and given morphine. O2 requirements increased during the night. There was a report that the patient had a chest x-ray and was diagnosed with a pneumonia on the left. She sees Dr. Ibrahim from oncology. She got immunotherapy on Thursday. She sees Dr. Calles here for pulmonology. [facility] Medical History Anxiety CVA (cerebral vascular accident) Gastrostomy in place History of melanoma Hypertension Lung cancer No pertinent family history Home Medications citalopram 10 mg PO DAILY 04/06/20 [History Last Taken 05/15/20] calcium carbonate 500 mg PO TID 04/10/20 [History Last Taken 05/13/20] multivitamin with minerals 1 ea PO DAILY 04/10/20 [History Last Taken 05/13/20] apixaban 5 mg PO BID 07/10/20 [History Last Taken Unknown] betamethasone, augmented 15 gm TP BID 07/10/20 [History Last Taken Unknown] cholecalciferol (vitamin D3) 2,000 unit PO DAILY 07/10/20 [History Last Taken Unknown] cyclosporine 1 drp OP BID 07/10/20 [History Last Taken Unknown] fluticasone propionate 2 spray NASAL DAILY 07/10/20 [History Last Taken Unknown] omeprazole 20 mg PO DAILY 07/10/20 [History Last Taken Unknown] promethazine 25 mg PO Q6H PRN 07/10/20 [History Last Taken Unknown] Allergy/AdvReac Type Severity Reaction Status Date / Time albuterol AdvReac Other Verified 10/12/20 16:05 lisinopril AdvReac COUGHING Verified 10/12/20 16:05 Family History Other No pertinent family history Surgical History No pertinent past surgical history Social History (Updated 10/12/20 @ 16:[address] Brady Fonseca DO) Smoking Status: Former smoker substance use type: does not use ROS ROS ED Constitutional Constitutional ED: Denies chills or weight loss Eyes Eyes: Denies change in vision or diplopia ENT ENT ED: Denies ear pain, rhinorrhea or sore throat Cardiovascular Cardiovascular: Denies chest pain, orthopnea, palpitations or racing heartbeat Respiratory/Chest Respiratory/Chest: Reports dyspnea; Denies cough or orthopnea Gastrointestinal Gastrointestinal: Reports constipation; Denies abdominal pain, diarrhea, nausea or vomiting Genitourinary Genitourinary ED: Denies dysuria, hematuria or urinary frequency Musculoskeletal Musculoskeletal: Denies arthralgias or myalgias Integumentary Denies abscess or rash Neurologic Neurologic: Reports other Details: Chronic left-sided deficits. ; Denies headache(s) or weakness Psychiatric Psychiatric: Denies anxiety, depression, suicidal ideation or suicidal thoughts Endocrine Endocrinology: Denies polydipsia, polyphagia or polyuria Allergic/Immunologic Allergic/Immunologic ED: Denies mouth swelling, tongue swelling or urticaria EXAM Physical Exam Const Vital Signs: 10/12/20 16:00 10/12/20 16:04 10/12/20 16:05 Temperature 97.8 F 97.8 F Temperature Source Oral Oral Pulse Rate 100 100 Respiratory Rate 31 H 31 H Respiratory Effort Short of Breath Labored Accessory Muscle Use Respiratory Pattern Hyperpnea Blood Pressure 92/59 L 92/59 L Blood Pressure Mean 70 70 Pulse Ox 96 96 Oxygen Delivery Method Nasal Cannula Nasal Cannula Nasal Cannula Oxygen Flow Rate (L/min) 3 3 3 10/12/20 17:00 Temperature 98.5 F Temperature Source Oral Pulse Rate 95 Respiratory Rate 26 H Respiratory Effort Respiratory Pattern Blood Pressure 97/69 Blood Pressure Mean 78 Pulse Ox 96 Oxygen Delivery Method Nasal Cannula Oxygen Flow Rate (L/min) 3 Positive well nourished and well developed General Appearance ED: well developed HEENT Reports normocephalic, head/scalp atraumatic and moist mucous membranes Eyes PERRL and EOMs intact bilaterally Neck no lymphadenopathy, supple and no JVD Resp clear to auscultation bilaterally Resp Narrative: Increased work of breathing and tachypnea Cardio regular rhythm and no murmurs Rate: tachycardic GI normal to inspection, nondistended, normoactive bowel sounds and non-tender Palpation: soft Back/Spine no CVA tenderness and normal ROM Extremity Extremity Narrative: Edema left arm with glove in place General Extremety ED: Yes edema General Extremity: edema Neuro oriented x3 and CN's II-XII intact bilaterally Neuro Narrative: Chronic left-sided weakness decreased sensation Sensorium / Orientation: alert Psych mental status grossly normal Mood & Affect: Negative for depressed or tearful Skin no rashes or lesions noted and no wounds MDM MDM MDM Narrative Medical decision making narrative: White count normal at 10.5. My interpretation of the single view chest x-ray is large right pleural effusion with atelectatic changes. Radiology feels is elevated diaphragm. Urinalysis was normal. CTA of the chest was obtained which confirms large pleural effusion. I spoke with Dr. Calles. We will hold her Lovenox and thoracentesis will be performed tomorrow morning. Family and patient were updated. I will speak with the hospitalist regarding admission Lab Data Attestation: I reviewed the patient's lab results. Labs: Laboratory Results - last 24 hr 10/12/20 10/12/20 10/12/20 16:10 16:10 16:10 WBC 10.5 RBC 4.07 L Hgb 10.3 L Hct 32.2 L MCV 79.1 L MCH 25.3 L MCHC 32.0 RDW Std Deviation 46.1 H RDW Coeff of Fermin 16.3 H Plt Count 601 H MPV 8.8 Immature Gran % (Auto) 0.700 Neut % (Auto) 77.2 H Lymph % (Auto) 9.4 L [place] % (Auto) 9.4 Eos % (Auto) 2.6 Baso % (Auto) 0.7 Absolute Neuts (auto) 8.1 H Absolute Lymphs (auto) 0.98 Nucleated RBC % 0 Sodium 146 H Potassium 4.0 Chloride 111 H Carbon Dioxide 32.0 Anion Gap 3 L BUN 10 Creatinine 0.46 L Estim Creat Clear Calc 41.76 Est GFR (MDRD) Af Amer 177 Est GFR (MDRD) Non-Af 146 BUN/Creatinine Ratio 22.0 H Glucose 111 H Lactic Acid Calcium 8.8 Total Bilirubin 0.40 Direct Bilirubin 0.16 AST 20 ALT 30 Alkaline Phosphatase 83 Troponin I High Sens 6.6 Total Protein 6.5 Albumin 2.1 L Globulin 4.4 H Urine Color Urine Clarity Urine pH Ur Specific [place] Urine Protein Urine Glucose (UA) Urine Ketones Urine Occult Blood Urine Nitrite Urine Bilirubin Urine Urobilinogen Ur Leukocyte Esterase Urine RBC Urine WBC Ur Squamous Epith Cells Urine Bacteria Urine Mucus 10/12/20 10/12/20 16:10 17:20 WBC RBC Hgb Hct MCV MCH MCHC RDW Std Deviation RDW Coeff of Fermin Plt Count MPV Immature Gran % (Auto) Neut % (Auto) Lymph % (Auto) [place] % (Auto) Eos % (Auto) Baso % (Auto) Absolute Neuts (auto) Absolute Lymphs (auto) Nucleated RBC % Sodium Potassium Chloride Carbon Dioxide Anion Gap BUN Creatinine Estim Creat Clear Calc Est GFR (MDRD) Af Amer Est GFR (MDRD) Non-Af BUN/Creatinine Ratio Glucose Lactic Acid 0.9 Calcium Total Bilirubin Direct Bilirubin AST ALT Alkaline Phosphatase Troponin I High Sens Total Protein Albumin Globulin Urine Color Yellow Urine Clarity Clear Urine pH 6.0 Ur Specific [place] 1.010 Urine Protein Negative Urine Glucose (UA) Normal Urine Ketones Negative Urine Occult Blood Negative Urine Nitrite Negative Urine Bilirubin Negative Urine Urobilinogen Normal Ur Leukocyte Esterase Negative Urine RBC 0 SEEN Urine WBC 0-5 SEEN Ur Squamous Epith Cells 0 SEEN Urine Bacteria 0 SEEN Urine Mucus 0 SEEN ABG Data ABG results: ABG 10/12/20 17:15 Specimen Type ART Sample Site R Radial pH 7.44 Bicarbonate Actual 28.4 H Total CO2 30 Base Excess 4 H O2 Saturation 97 ABG pCO2 42.2 ABG pO2 86 Ramone Test Positive O2 Delivery Device Cannula Liter Flow 3.0 Radiography Diagnostic Testing: Radiology Impression Chest X-Ray 10/12/20 16:35 IMPRESSION: Elevation of the right hemidiaphragm with right basilar atelectasis. Electronically Signed: Pola Heard MD at 17:08 EDT Tel , Service support , EKG Initial EKG: Attestation: I personally reviewed and interpreted this EKG as follows: Comments: EKG is sinus tachycardia at a rate of 102. No significant changes from prior Discharge Plan Triage Chief Complaint: Shortness of Breath ED Provider: Brady Fonseca Dx/Rx/DC Orders Prescriptions: No Action citalopram 10 MG tablet 10 mg PO DAILY RF: 0 calcium carbonate 500 MG tablet 500 mg PO TID RF: 0 multivitamin with minerals 1 EACH tablet 1 ea PO DAILY RF: 0 promethazine 25 MG tablet 25 mg PO Q6H PRN (Reason: Nausea) RF: 0 betamethasone, augmented 15 GM ointment 15 gm TP BID RF: 0 omeprazole 20 MG capsule 20 mg PO DAILY RF: 0 fluticasone propionate 1 SPRAY spray,suspension 2 spray NASAL DAILY RF: 0 cyclosporine 1 EACH dropperette 1 drp OP BID RF: 0 cholecalciferol (vitamin D3) 2,000 UNIT capsule 2,000 unit PO DAILY RF: 0 apixaban 5 MG tablet 5 mg PO BID RF: 0 Primary Care Provider: Jm Villagran
[2020-10-12] MEDS: 0.9% Normal Saline 1,000 ML 999 ML IV (16:34)
[2020-10-12 16:35] LABS: Absolute Lymphocyte Count 0.98 X10^3/uL (0.83-4.51); Absolute Neutrophil Count 8.1 X10^3/uL (2.0-7.7); Basophil# 0.07 X10^3/uL; Basophil% 0.7 % (0-1); Eosinophil# 0.27 X10^3/uL; Eosinophils% 2.6 % (0-5); Hematocrit 32.2 % (37-47); Hemoglobin 10.3 g/dL (12.0-15.0); Lymphocyte # 0.98 X10^3/ul (0.83-4.51); Lymphocyte % 9.4 % (19-41); Mean Corpuscular Hgb 25.3 pg (27.0-32.0); Mean Corpuscular Volume 79.1 fL (81-99); Mean Platelet Vol. 8.8 fl (6.2-12.0); Monocyte# 0.98 X10^3/uL; Monocyte% 9.4 % (0-10); NRBC Flagged by Analyzer 0 % (0-5); Neutrophil % 77.2 % (47-70); Platelet Count 601 K/mm3 (150-450); RBC Distribution Width CV 16.3 % (11.6-14.6); RBC Distribution Width SD 46.1 fl (35.1-43.9); Red Blood Count 4.07 M/mm3 (4.2-5.4); White Blood Count 10.5 K/mm3 (4.4-11.0)
--- NOTE | 2020-10-12 16:35 | RAD_ITS ---
INDICATION: dyspnea EXAMINATION/TECHNIQUE: X-RAY - XR Chest 1 View COMPARISON: None. FINDINGS: Elevation of the right hemidiaphragm with right basilar atelectasis. The cardiomediastinal silhouette is unremarkable. No pleural effusion or pneumothorax. Degenerative changes of the spine and right shoulder RAD/Chest 1 View (Portable) IMPRESSION: Elevation of the right hemidiaphragm with right basilar atelectasis. Electronically Signed: Pola Heard MD at 17:08 EDT Tel , Service support ,
[2020-10-12 16:48] LABS: Lactic Acid 0.9 mmol/L (0.4-1.9)
[2020-10-12 16:52] LABS: AST(SGOT) 20 U/L (15-37); Alanine Aminotransfer ALT/SGPT 30 U/L (13-56); Albumin, Serum 2.1 g/dL (3.2-5.0); Alkaline Phosphatase 83 U/L (45-117); Bilirubin, Direct 0.16 mg/dL (0.00-0.30); Globulin 4.4 g/dL (2.2-4.2); Protein, Total 6.5 g/dL (6.4-8.2)
[2020-10-12 16:53] LABS: Anion Gap 3 (5-15); BUN 10 mg/dL (7-18); Calcium,Total 8.8 mg/dL (8.5-10.1); Chloride 111 mmol/L (98-107); Creatinine, Serum 0.46 mg/dL (0.55-1.02); EST Glomerular Filtration Rate 146 mL/min (>60); Est Glom Filt Rate - Afr Amer 177 mL/min (>60); Estimated Creatinine Clearance 41.76 ml/min; Glucose 111 mg/dL (74-106); Sodium Level 146 mmol/L (136-145); Troponin-I HS 6.6 pg/mL (3.0-53.7)
[2020-10-12 17:20] LABS: Allen Test Positive; Base Excess 4 mmol/L (-2 to +2); Bicarbonate 28.4 mmol/L (22-26); Blood Gas Specimen Type ART; O2 Delivery Device Cannula; PO2 86 mmHG (75-100); SITE R Radial; SO2 97 % (95-99); Total Carbon Dioxide 30 mmol/L; pCO2 42.2 mmHg (35-45); pH 7.44 (7.35-7.45)
[2020-10-12 17:32] LABS: Bacteria 0 SEEN /hpf (None Seen); Mucous, Urine 0 SEEN /hpf (<or=2+); Red Blood Cells-Urine 0 SEEN /hpf (0-5); Squamous Epithelial Cells - UA 0 SEEN /hpf (5-10)
--- NOTE | 2020-10-12 17:35 | CT_ITS ---
STUDY: CTA CHEST REASON FOR EXAM: Female, 64 years old. dyspnea PAST MEDICAL HISTORY: A 64-year-old female with reported history of carcinoma of the lung presenting for initial staging examination. RADIATION DOSAGE (If Supplied By Facility): CTDIvol = ( 10.45 ) mGy, DLP = ( 418.49 ) mGycm TECHNIQUE: The examination was performed with the intravenous administration of IV 100mL Isovue-370. Post-processing of the angiographic images was performed, with multiplanar reformation and 3D reconstruction. Individualized dose optimization techniques were used for this CT. The exam is limited by moderate motion artifact. COMPARISON: CTA of the chest dated May 15, 2020. PET/CT report dated May 01, 2020, the images are not available for review at this time. FINDINGS: Interval development of a large 5.24 x 3.67 cm left supraclavicular mass in the anterior triangle with a small amount of fluid and multiple enlarged lymph nodes. Moderate body wall edema is present on the left side of the base of the neck and extending into the thoracic inlet region. Previously seen malignant mass in the retrocardiac region of the right lower lobe is no longer visualized. There is complete atelectasis/collapse of the right lower lobe as well as a moderate to large size right pleural effusion, neither which were present on the prior study. Mild atelectasis of the inferior aspect of the right upper lobe is also present. Previously seen spiculated nodule in the anterior aspect of the right upper lobe apex is no longer visualized. There is interval appearance of a spiculated nodule in the anterior medial aspect of the right upper lobe apex near the mediastinum measuring 1.51 x 1.23 cm. No visualized masses or nodules of the left lung. Mild linear atelectasis is seen in the left lower lobe. Diffuse mediastinal lymphadenopathy is present. There is mass effect on the right mainstem bronchus which is moderately narrow. Normal enhancement of the main pulmonary artery and right and left pulmonary arteries. Normal enhancement of the bilateral peripheral pulmonary arteries. There is no demonstrated pulmonary embolism. There is atherosclerotic calcification of the aortic arch with tortuosity. There is no demonstrated aortic dissection. Normal heart size and pericardium. Normal visualized trachea and bronchi. Normal chest wall structures. There are degenerative changes of thoracic spine. Normal visualized upper abdomen. IMPRESSION: Metastatic disease to the left supraclavicular region 1. Interval development of a large 5.24 x 3.67 cm left supraclavicular mass in the anterior triangle with a small amount of fluid and multiple enlarged lymph nodes. Moderate body wall edema is present on the left side of the base of the neck and extending into the thoracic inlet region. 2. Previously seen malignant mass in the retrocardiac region of the right lower lobe is no longer visualized. I suspect a malignant effusion on the right. The patient probably will need restaging with a follow-up PET/CT exam. 3. There is complete atelectasis/collapse of the right lower lobe as well as a moderate to large size right pleural effusion, neither which were present on the prior study. 4. Mild atelectasis of the inferior aspect of the right upper lobe is also present. Previously seen spiculated nodule in the anterior aspect of the right upper lobe apex is no longer visualized. 5. There is interval appearance of a spiculated nodule in the anterior medial aspect of the right upper lobe apex near the mediastinum measuring 1.51 x 1.23 cm. 6. No visualized masses or nodules of the left lung. Mild linear atelectasis is seen in the left lower lobe. 7. Diffuse mediastinal lymphadenopathy is present. There is mass effect on the right mainstem bronchus which is moderately narrow. 8. No demonstrated pulmonary embolism or arterial dissection. Electronically Signed: Tristan Nuno MD at 19:09 EDT , Service support , CT/CTA Chest W/WO Contrast
[2020-10-12 17:38] LABS: Color, Urine Yellow (Yellow); Glucose, Dipstick Normal (Normal); Ketone-Dipstick Negative (Negative); Leukocyte Esterase-Dipstick Negative /ul (Negative); Nitrite-Dipstick Negative (Negative); Occult Blood-Urine Negative /ul (Negative); Protein-Dipstick Negative (Negative); Urine Bilirubin Dipstick Negative (Negative); Urine Clarity Clear (Clear); Urine Urobilinogen Normal (Normal)
[2020-10-12 17:49] LABS: White Blood Cells 0-5 SEEN /hpf (0-5)
--- NOTE | 2020-10-12 18:07 | PCM.HP.STD ---
HPI - General General Date of Admission: 10/12/20 Date of Service: 10/12/20 Chief Complaint: Shortness of breath -2 days HPI Narrative FLACO CONLEY, is a 64 F who presents with progressive shortness of breath ongoing for about 2 days. Patient has history of CVA with left-sided hemiplegia, resident in [facility]. She was noted to have progressive shortness of breath. She was thought to have pneumonia. She however has been progressively short of breath and brought to the hospital She denied any fever or chills. Patient has history of lung cancer. She was receiving chemotherapy, already seen therapy as well as immunotherapy prior to her stroke. She recently was resumed on Keytruda about a week ago. She follows with the [facility]. [facility] Medical History Anxiety CVA (cerebral vascular accident) Gastrostomy in place History of melanoma Hypertension Lung cancer No pertinent family history Home Medications multivitamin with minerals 1 ea PO DAILY 04/10/20 [History Last Taken 05/13/20] cholecalciferol (vitamin D3) 2,000 unit PO DAILY 07/10/20 [History Last Taken Unknown] fluticasone propionate 2 spray NASAL DAILY 07/10/20 [History Last Taken Unknown] acetaminophen [Tylenol Extra Strength] 1,000 mg PO Q6H PRN 10/12/20 [History Last Taken 09/30/20] atorvastatin 80 mg FEEDING TUBE QHS 10/12/20 [History Last Taken 10/11/20] carboxymethylcellulose sodium [Refresh Tears] 1 drp EACH EYE BID 10/12/20 [History Last Taken 10/12/20] citalopram 20 mg FEEDING TUBE DAILY 10/12/20 [History Last Taken 10/12/20] enoxaparin 70 mg SUBCUT BID 10/12/20 [History Last Taken 10/12/20] esomeprazole magnesium 40 mg PO DAILY 10/12/20 [History Last Taken 10/12/20] lactose-reduced food with fibr [Isosource 1.5 Sumit] See Rx Instructions .ROUTE .COMPLEX 10/12/20 [History Last Taken 10/11/20] levalbuterol HCl 0.63 mg INHALATION Q4H PRN 10/12/20 [History Last Taken 10/11/20] levetiracetam [Keppra] 750 mg FEEDING TUBE Q12H 10/12/20 [History Last Taken 10/12/20] losartan 12.5 mg FEEDING TUBE DAILY 10/12/20 [History Last Taken 10/12/20] melatonin 6 mg FEEDING TUBE DAILY@1800 10/12/20 [History Last Taken 10/11/20] morphine concentrate [Roxanol Concentrate] 4 mg PO Q4H PRN 10/12/20 [History Last Taken 10/12/20] nystatin [Nystop] 1 applic TOPICAL TID 10/12/20 [History Last Taken 10/12/20] prazosin 1 mg FEEDING TUBE QHS 10/12/20 [History Last Taken 10/11/20] Allergy/AdvReac Type Severity Reaction Status Date / Time albuterol AdvReac Other Verified 10/12/20 16:05 lisinopril AdvReac COUGHING Verified 10/12/20 16:05 Family History Other No pertinent family history Surgical History No pertinent past surgical history Social History Smoking Status: Former smoker substance use type: does not use ROS ROS Narrative Constitutional: Reports: Malaise, Weakness, Fatigue. Denies: Anorexia, Chills, Fever, Night Sweats, Weight Change Eyes: Denies: Blurred vision, Cataracts, Conjunctivae Inflammation, Pain, Redness, Vision Change HEENT: Denies: Difficulty Hearing, Difficulty Swallowing, Head Aches, Hearing Changes, Sinus Congestion, Sinus Drainage Cardiovascular: Denies: Chest Pain, Orthopnea, Palpitations Respiratory: Admits to dry cough, Shortness of breath at rest, denies sputum production Gastrointestinal: Denies: Abdominal Pain, Nausea, Vomiting Genitourinary: Denies: Dysuria Musculoskeletal: Denies: Joint Pain, Joint stiffness, Joint swelling, Joint Tenderness Skin: Denies: Rash, Wounds Vital Signs Vital Signs Vital Signs: 10/12/20 16:00 10/12/20 16:04 10/12/20 16:05 Temperature 97.8 F 97.8 F Temperature Source Oral Oral Pulse Rate 100 100 Respiratory Rate 31 H 31 H Respiratory Effort Short of Breath Labored Accessory Muscle Use Respiratory Pattern Hyperpnea Blood Pressure 92/59 L 92/59 L Blood Pressure Mean 70 70 Pulse Ox 96 96 Oxygen Delivery Method Nasal Cannula Nasal Cannula Nasal Cannula Oxygen Flow Rate (L/min) 3 3 3 10/12/20 17:00 Temperature 98.5 F Temperature Source Oral Pulse Rate 95 Respiratory Rate 26 H Respiratory Effort Respiratory Pattern Blood Pressure 97/69 Blood Pressure Mean 78 Pulse Ox 96 Oxygen Delivery Method Nasal Cannula Oxygen Flow Rate (L/min) 3 Weight Weight: 67.9 kg Body Mass Index (BMI) 28.3 Physical Exam Narrative Physical exam: General: Alert, Oriented x3, Cooperative, in mild-moderate respiratory distress HEENT: Atraumatic Oral: Moist Mucosa Neck: Supple Lungs: Clear to auscultation Cardiovascular: HS I+II, regular, no murmurs Abdomen: Bowel Sounds Present, Soft, Non Tender Extremities: No edema Skin: No rashes, No breakdown Neurological: Left hemiplegia, left hemineglect Results Lab / Micro Data Result Diagrams: 10/12/20 16:10 10/12/20 16:10 Labs: Laboratory Results - last 24 hr 10/12/20 16:10: Total Bilirubin 0.40, Direct Bilirubin 0.16, AST 20, ALT 30, Alkaline Phosphatase 83, Total Protein 6.5, Albumin 2.1 L, Globulin 4.4 H 10/12/20 16:10: WBC 10.5, RBC 4.07 L, Hgb 10.3 L, Hct 32.2 L, MCV 79.1 L, MCH 25.3 L, MCHC 32.0, RDW Std Deviation 46.1 H, RDW Coeff of Fermin 16.3 H, Plt Count 601 H, MPV 8.8, Immature Gran % (Auto) 0.700, Neut % (Auto) 77.2 H, Lymph % (Auto) 9.4 L, [place] % (Auto) 9.4, Eos % (Auto) 2.6, Baso % (Auto) 0.7, Absolute Neuts (auto) 8.1 H, Absolute Lymphs (auto) 0.98, Nucleated RBC % 0 10/12/20 16:10: Sodium 146 H, Potassium 4.0, Chloride 111 H, Carbon Dioxide 32.0, Anion Gap 3 L, BUN 10, Creatinine 0.46 L, Estim Creat Clear Calc 41.76, Est GFR (MDRD) Af Amer 177, Est GFR (MDRD) Non-Af 146, BUN/Creatinine Ratio 22.0 H, Glucose 111 H, Calcium 8.8, Troponin I High Sens 6.6 10/12/20 16:10: Lactic Acid 0.9 10/12/20 17:20: Urine Color Yellow, Urine Clarity Clear, Urine pH 6.0, Ur Specific [place] 1.010, Urine Protein Negative, Urine Glucose (UA) Normal, Urine Ketones Negative, Urine Occult Blood Negative, Urine Nitrite Negative, Urine Bilirubin Negative, Urine Urobilinogen Normal, Ur Leukocyte Esterase Negative, Urine RBC 0 SEEN, Urine WBC 0-5 SEEN, Ur Squamous Epith Cells 0 SEEN, Urine Bacteria 0 SEEN, Urine Mucus 0 SEEN Micro: Microbiology 10/12/20 16:34 Mucosa - Nose SARS-CoV-2 Antigen (Rapid) - Final ABG Data ABG results: ABG 10/12/20 17:15 Specimen Type ART Sample Site R Radial pH 7.44 Bicarbonate Actual 28.4 H Total CO2 30 Base Excess 4 H O2 Saturation 97 ABG pCO2 42.2 ABG pO2 86 Ramone Test Positive O2 Delivery Device Cannula Liter Flow 3.0 Radiology Impression Chest X-Ray 10/12/20 16:35 IMPRESSION: Elevation of the right hemidiaphragm with right basilar atelectasis. Electronically Signed: Pola Heard MD at 17:08 EDT Tel , Service support , Assessment & Plan Assessment/Plan (1) Right lower lobe lung mass: (2) Hypoxia: (3) Hypernatremia: (4) Postobstructive pneumonia: PLAN: 1. Hypoxia secondary to right pleural effusion likely malignant History of right-sided lung CA, follows with oncology in the [facility] Patient currently on 3 L of oxygen; She has allergy to albuterol?makes her jittery We will continue on ipratropium breathing treatment, oxygen Pulmonology consulted for thoracocentesis tomorrow -Eliquis on hold Will cover with IV Levaquin for possible postobstructive pneumonia QTC is 440 2. Hypernatremia secondary to dehydration/fluid shifts, will reevaluate in a.m. 3. History of CVA with left hemiplegia, [facility] 4. DVT prophylaxis?SCDs; off Eliquis for planned thoracocentesis in a.m. 5. I discussed and explained in details the various types of CODE STATUS-full code, DNR CCA, DNR CC. Patient chose to be full code Time spent discussing CODE STATUS 18 minutes Charges/Coding Visit Charges Inpatient E&M: 92057 Init Hosp L3 Procedures Hospitalists Procedures: 72383 Advncd Care Plan 30 Min
[2020-10-12] MEDS: Ipratropium 0.5 MG/2.5 ML SOLUTION INHALATION ×2 (19:38→23:04)
[2020-10-12] MEDS: levoFLOXacin IV 750 MG/150 ML BAG 100 MG IV (20:50)
[2020-10-13] VITALS (14 sets, daily range): BP systolic 120–135; BP diastolic 76–84; PULSE 79–106; RESP 18–30; TEMP 36.1–36.9; O2SAT 94–97
[2020-10-13 07:14] LABS: Absolute Lymphocyte Count 0.96 X10^3/uL (0.83-4.51); Absolute Neutrophil Count 8.7 X10^3/uL (2.0-7.7); Basophil# 0.05 X10^3/uL; Basophil% 0.4 % (0-1); Eosinophil# 0.27 X10^3/uL; Eosinophils% 2.4 % (0-5); Hematocrit 32.2 % (37-47); Hemoglobin 10.1 g/dL (12.0-15.0); Lymphocyte # 0.96 X10^3/ul (0.83-4.51); Lymphocyte % 8.6 % (19-41); Mean Corp Hgb Conc 31.4 g/dL (32-36); Mean Corpuscular Hgb 25.1 pg (27.0-32.0); Mean Corpuscular Volume 80.1 fL (81-99); Mean Platelet Vol. 8.7 fl (6.2-12.0); Monocyte# 1.13 X10^3/uL; Monocyte% 10.1 % (0-10); NRBC Flagged by Analyzer 0 % (0-5); Neutrophil % 77.7 % (47-70); Platelet Count 626 K/mm3 (150-450); RBC Distribution Width CV 16.2 % (11.6-14.6); RBC Distribution Width SD 47.2 fl (35.1-43.9); Red Blood Count 4.02 M/mm3 (4.2-5.4); White Blood Count 11.2 K/mm3 (4.4-11.0)
[2020-10-13] MEDS: Ipratropium 0.5 MG/2.5 ML SOLUTION INHALATION ×5 (07:25→22:55)
[2020-10-13 08:00] LABS: ALB/GLOB Ratio 0.4 RATIO (0.9-2.4); AST(SGOT) 17 U/L (15-37); Alanine Aminotransfer ALT/SGPT 26 U/L (13-56); Alkaline Phosphatase 78 U/L (45-117); Anion Gap 5 (5-15); BUN 8 mg/dL (7-18); BUN/Creat Ratio 20.6 RATIO (10-20); Chloride 99 mmol/L (98-107); Creatinine, Serum 0.39 mg/dL (0.55-1.02); EST Glomerular Filtration Rate 175 mL/min (>60); Est Glom Filt Rate - Afr Amer 212 mL/min (>60); Estimated Creatinine Clearance 41.76 ml/min; Globulin 4.8 g/dL (2.2-4.2); Glucose 108 mg/dL (74-106); Potassium 3.7 mmol/L (3.5-5.1); Protein, Total 6.8 g/dL (6.4-8.2); Sodium Level 134 mmol/L (136-145)
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
[2020-10-13] MEDS: Menthol/Lanolin/Calamine/Znox 113 GM Tube 1 APPLIC TOPICAL ×2 (10:04→21:32)
[2020-10-13] MEDS: Nystatin Ointment 1 APPLIC TOPICAL ×2 (10:05→21:31)
[2020-10-13] MEDS: Fluticasone 0.05% 1 SPRAY NASAL.SRY 2 SPRAY NASAL (10:07)
[2020-10-13] MEDS: Glycerin/Hypromellose/PEG400 15 ml Bottle 1 DRP EACH EYE ×2 (10:07→21:30)
[2020-10-13] MEDS: levETIRAcetam Oral Solution 500 MG/5 ML 750 MG GT ×2 (10:12→21:33)
[2020-10-13] MEDS: Lansoprazole 15 MG Capsule.DR 30 MG GT (10:14)
[2020-10-13] MEDS: Cholecalciferol (VIT D3) 25 MCG TABLET (1,000 UNITS) 50 MCG GT (10:14)
[2020-10-13] MEDS: Losartan Potassium 25 MG Tablet 12.5 MG GT (10:15)
[2020-10-13] MEDS: Citalopram 20 MG Tablet GT (10:15)
--- NOTE | 2020-10-13 11:11 | PCM.PN.HOSP ---
Documented by User: Fausto MULLINS 10/13/20 11:22 Subjective Subjective Patient is a 64-year-old female comfortably alert and oriented x1. Patient does not appear to be in any acute distress on my examination, however she is only oriented to self and cannot provide much insight into her current condition. No complaints when asked Objective Data Objective Data Vital Signs: Vital Signs Temp Pulse Resp BP Pulse Ox 98.5 F 96 18 120/78 94 10/13/20 10:01 10/13/20 10:01 10/13/20 10:01 10/13/20 10:01 10/13/20 10:01 Oxygen Flow Rate (L/min) 3 Oxygen Delivery Method Nasal Cannula Weight: 137 lb 12.623 oz Body Mass Index (BMI) 25.8 Intake & Output: Intake and Output for Last 24 Hours 10/11/20 10/12/20 10/13/20 23:59 23:59 23:59 Intake Total 1150 / 1150 0 / 0 Output Total 300 / 300 Balance 1150 / 1000 -300 / -300 Lab / Micro Data Result Diagrams: 10/13/20 06:30 10/13/20 06:30 Labs: Laboratory Results - last 24 hr 10/12/20 16:10: Total Bilirubin 0.40, Direct Bilirubin 0.16, AST 20, ALT 30, Alkaline Phosphatase 83, Total Protein 6.5, Albumin 2.1 L, Globulin 4.4 H 10/12/20 16:10: WBC 10.5, RBC 4.07 L, Hgb 10.3 L, Hct 32.2 L, MCV 79.1 L, MCH 25.3 L, MCHC 32.0, RDW Std Deviation 46.1 H, RDW Coeff of Fermin 16.3 H, Plt Count 601 H, MPV 8.8, Immature Gran % (Auto) 0.700, Neut % (Auto) 77.2 H, Lymph % (Auto) 9.4 L, Clarke % (Auto) 9.4, Eos % (Auto) 2.6, Baso % (Auto) 0.7, Absolute Neuts (auto) 8.1 H, Absolute Lymphs (auto) 0.98, Nucleated RBC % 0 10/12/20 16:10: Sodium 146 H, Potassium 4.0, Chloride 111 H, Carbon Dioxide 32.0, Anion Gap 3 L, BUN 10, Creatinine 0.46 L, Estim Creat Clear Calc 41.76, Est GFR (MDRD) Af Amer 177, Est GFR (MDRD) Non-Af 146, BUN/Creatinine Ratio 22.0 H, Glucose 111 H, Calcium 8.8, Troponin I High Sens 6.6 10/12/20 16:10: Lactic Acid 0.9 10/12/20 17:20: Urine Color Yellow, Urine Clarity Clear, Urine pH 6.0, Ur Specific [place] 1.010, Urine Protein Negative, Urine Glucose (UA) Normal, Urine Ketones Negative, Urine Occult Blood Negative, Urine Nitrite Negative, Urine Bilirubin Negative, Urine Urobilinogen Normal, Ur Leukocyte Esterase Negative, Urine RBC 0 SEEN, Urine WBC 0-5 SEEN, Ur Squamous Epith Cells 0 SEEN, Urine Bacteria 0 SEEN, Urine Mucus 0 SEEN 10/13/20 06:30: WBC 11.2 H, RBC 4.02 L, Hgb 10.1 L, Hct 32.2 L, MCV 80.1 L, MCH 25.1 L, MCHC 31.4 L, RDW Std Deviation 47.2 H, RDW Coeff of Fermin 16.2 H, Plt Count 626 H, MPV 8.7, Immature Gran % (Auto) 0.800, Neut % (Auto) 77.7 H, Lymph % (Auto) 8.6 L, Clarke % (Auto) 10.1 H, Eos % (Auto) 2.4, Baso % (Auto) 0.4, Absolute Neuts (auto) 8.7 H, Absolute Lymphs (auto) 0.96, Nucleated RBC % 0 10/13/20 06:30: Sodium 134 L, Potassium 3.7, Chloride 99, Carbon Dioxide 30.0, Anion Gap 5, BUN 8, Creatinine 0.39 L, Estim Creat Clear Calc 41.76, Est GFR (MDRD) Af Amer 212, Est GFR (MDRD) Non-Af 175, BUN/Creatinine Ratio 20.6 H, Glucose 108 H, Calcium 9.0, Total Bilirubin 0.50, AST 17, ALT 26, Alkaline Phosphatase 78, Total Protein 6.8, Albumin 2.0 L, Globulin 4.8 H, Albumin/Globulin Ratio 0.4 L Micro: Microbiology 10/12/20 16:34 Mucosa - Nose SARS-CoV-2 Antigen (Rapid) - Final ABG Data ABG results: ABG 10/12/20 17:15 Specimen Type ART Sample Site R Radial pH 7.44 Bicarbonate Actual 28.4 H Total CO2 30 Base Excess 4 H O2 Saturation 97 ABG pCO2 42.2 ABG pO2 86 Ramone Test Positive O2 Delivery Device Cannula Liter Flow 3.0 Radiography Diagnostic Testing: Radiology Impression Chest X-Ray 10/12/20 16:35 IMPRESSION: Elevation of the right hemidiaphragm with right basilar atelectasis. Electronically Signed: Pola Heard MD at 17:08 EDT Tel , Service support , Chest CTA 10/12/20 17:35 Physical Exam Const alert Orientation / Consciousness: confused and disoriented Exam Limitations: altered mental status HEENT head/scalp atraumatic, moist oral mucous membranes and oropharynx normal Head and Scalp: normocephalic Eyes EOMs intact bilaterally and conjunctivae normal Neck no lymphadenopathy, supple and no JVD Resp normal respiratory effort, no retractions and no use of accessory muscles Cardio regular rate, regular rhythm, no murmurs and no JVD GI normal to inspection, nondistended, normoactive bowel sounds, soft to palpation and non-tender Extremity normal to inspection, full ROM and no clubbing, cyanosis or edema Skin no rashes or lesions noted, no wounds, skin turgor normal and no jaundice Neuro Neuro Narrative: Exam limited due to patient confusion. Sensorium / Orientation: awake and alert Psych Psych Narrative: Exam limited due to patient confusion. Assessment & Plan Assessment/Plan (1) Postobstructive pneumonia: (2) Hypernatremia: (3) Hypoxia: (4) Pleural effusion: (5) Right lower lobe lung mass: PLAN: Day 2: See subjective. Discharge plan: Case management following, patient cannot return to [facility], will need to reiniitate pre-cert on Thursday. 1) hypoxia secondary to right pleural effusion with possible postobstruvtive pneumonia Pulmonology following, diagnostic and therapeutic thoracentesis scheduled for the morning of 10/14. Patient did receive a dose of Lovenox on 10/12, currently being held. Etiology of pleural effusion could possibly be malignancy, side effect of Keytruda regimen or transudate secondary to CHF. Plan; thoracentesis as above, continue IV Levaquin for possible postobstructive pneumonia, O2 per protocol. 2) Hypernatremia Elevated to 146 on admission, currently 134. Plan; continue to monitor BMP. 3) History of CVA with left hemiplegia Patient is a resident at [facility], however will need pre-CERT to reenter group home as noted above. Patient is alert and oriented only to self, unaware of patient mentation at baseline. DVT prophylaxis ? SCDs off Eliquis for planned thoracocentesis in a.m. Patient seen by Fausto Scott PA-C, under the supervision of Dr. Conklin. Documented by User: Dr. Carmen Conklin MD 10/13/20 13:52 Objective Data Lab / Micro Data Result Diagrams: 10/13/20 06:30 10/13/20 06:30 Charges/Coding Addendum Addendum: This patient was seen in conjunction with HARPREET Torres. I have independently interviewed and examined the patient and reviewed pertinent historical, laboratory, and other data. Please refer to HARPREET Torres's note for his patient's presentation, findings, and recommendations. I have reviewed and his note and concur with his documentation Patient was seen and examined. Apparently patient was on Lovenox not Eliquis. No acute events overnight. Physical Exam: Gen: Appears comfortable, not pale, not jaundiced, in mild respiratory distress CVS:HS I +II, regular, no murmurs RESP: Diminished at lung bases, scattered wheezes GI: BS present and normal, soft, nontender, no palpable organs EXT:No edema ASSESSMENT: 1. Hypoxia 2. Pleural effusion, 3. Right lower lung mass 4. Postobstructive pneumonia 5. Hypernatremia Plan: Pulmonology consulted -plan for thoracocentesis tomorrow Continue with PEG tube with tube flushes Continue on IV Levaquin Continue on ipratropium breathing treatments Visit Charges Inpatient E&M: 82044 Subs Hosp L2
[2020-10-13] MEDS: Nystatin Powder 15gm Bottle 1 APPLIC TOPICAL ×2 (13:56→21:32)
--- NOTE | 2020-10-13 15:38 | CM.ED ---
LIZ Note Referral Source: MD Referral Reason: Patient is able to return to [place], on Thursday per MD LIZ was advised by MD that patient will be able to return to [facility], on Thursday if she can return to the facility. LIZ called Leigh in admission. She said that patient CAN NOT come back this weekend as they need to start precert on Thursday. Asthma Educator updated Plan: Patient will need to remain in hospital over weekend due to insurance issues Laura OMALLEY
[2020-10-13] MEDS: Doxazosin 1 MG Tablet GT (21:27)
[2020-10-13] MEDS: Atorvastatin Calcium 80 MG Tablet GT (21:27)
[2020-10-13] MEDS: MELATONIN 3 MG TABLET 6 MG GT (21:27)
[2020-10-14] VITALS (33 sets, daily range): BP systolic 94–142; BP diastolic 53–87; PULSE 79–105; RESP 14–32; TEMP 35.6–37.1; O2SAT 88–99
--- NOTE | 2020-10-14 | IMM_PTH ---
PATIENT: FLACO CONLEY LOC: [facility] U#:[id number] AGE/SX: 64/F ROOM: [facility] RE10/12/[address]: Dr. Emile Deluna MD : 1955 BED: 1 DIS: 10/19/2020 SPEC #: [id number] RECD: 10/16/20 11:16 STATUS: GIGI REQ #: [id number] LY: 10/14/20 00:[address]: Michael Calles DEPT: IMMUNOHISTOCHEMISTRY RECD BY: Araceli Hernandez ENTERED: 10/16/20 11:18 SP TYPE: IMMUNO OTHR DR: MD Dr. Medhat Gold DO Dr. David Kittoe, MD Dr. Victor Velasquez, MD Christina Muller, SUPERVISOR PICKING CREW-C Tissues: THORACIC FLUID Procedures: NAPSIN A (add) CA-125 (add) Sumit Ret (add) CK14 (add) CK20 (add) CK5-6 (add) CK7 (add) CK8 (add) MAMM (add) P53 (add) KY (add) TTF1 (add) Pankeratin (add) GATA3 (add) P40 (add) ER (initial) S-100 (add) PHYSICIAN & [place] [id number] SPECIMEN INFORMATION: Tissue Source: Thoracentesis fluid Clinical Info: Pleural effusion Specimen Number: [id number] CPT code: 54655, 95268 x16 METHODOLOGY: Deparaffinized sections of prefer/formalin-fixed tissue or PAP/DQ stained slides are incubated with monoclonal/polyclonal antibodies/oligonucleotide probes. Localization is made via biotin free immunoperoxidase method. Appropriate controls are performed and reacted as expected. Results on target cell population are indicated in the following table: RESULTS: ANTIBODY / CLONE RESULT ER (6F11) negative KY (1E2) negative AE1-3 (AE1/AE3/PCK26) positive CK7 (OV-TL12/30) positive CK8 (83linlJ48) positive CK20 (KS20.8) negative S-100 (4C4.9) negative TTF-1 (8G7G3/1) negative Napsin A (Rabbit Polyclonal) negative CK5-6 (D5 & 1684) negative CK14 (LL002) negative P40 (BC28) negative CA125 (OC125) positive P53 (DO-7) positive, 10%, dim CALRET (polyclonal) negative GATA3 (L50-823) negative Mammaglobin (31A5) negative These tests were developed and their performance characteristics determined by [facility]. They may not have been cleared or approved by the U.S. Food and Drug Administration. The FDA has determined that such clearance or approval is not necessary. The above immunohistochemical/dualISH markers are ordered and reviewed by the Pathologist. INTERPRETATION: Thoracentesis fluid: Metastatic non-small cell carcinoma. See comment. AM:ellyn 10/18/2020 Comment: The ICH profile is consistent with lung or ovarian primary. Clinical correlation is suggested. Case has been reviewed in consultation with Dr. Dodge who concurs with the above diagnosis. IDC:SJ
--- NOTE | 2020-10-14 | FLU_PTH ---
PATIENT: FLACO CONLEY LOC: [facility] U#:[id number] AGE/SX: 64/F ROOM: [facility] RE10/12/[address]: Dr. Emile Deluna MD : 1955 BED: 1 DIS: 10/19/2020 SPEC #: [id number] RECD: 10/15/20 08:39 STATUS: SOUT REQ #: [id number] LY: 10/14/20 00:[address]: Michael Calles DEPT: CYTOLOGY RECD BY: Shivam Steve ENTERED: 10/15/20 08:40 SP TYPE: Fluid OTHR DR: MD Dr. Michael Gold MD Dr. Derek Brown, DO Dr. David Kittoe, MD Dr. Victor Velasquez, MD Christina Muller, CERTIFIED CONTROL SYSTEMS TECHNICIAN-C Tissues: Pleural fluid, NOS Procedures: Special Stain Group II Mucicarmine Stain (control) Surgery Specimen Level IV Cytospin Fluid Comments: @ Ordering doctor for SSII edited from to @ by JACKY at 10/15/20 0939 @ Ordering doctor for SUIV edited from to @ by JACKY at 10/15/20 0939 @ Ordering doctor for CYSPIN edited from to @ by JACKY at 10/15/20 0939 @ Submitting doctor edited from to @ by JACKY at 10/15/20 0939 HEADER OPERATION: Thoracentesis PRE-OP DIAGNOSIS: Pleural effusion TISSUE SUBMITTED: Thoracentesis fluid for cytology DIAGNOSIS CYTOLOGY Thoracentesis fluid for cytology (cytospin and cell block): Positive for malignant cells, adenocarcinoma. See comment. AM:ellyn 10/16/2020 COMMENT Immunohistochemistry ([id number]) supports the above diagnosis. The differential includes primaries arising in ovary and lung. Clinical correlation is suggested. Mucin stain with matched control was used in the evaluation of this case and is positive in tumor cells. Reference is made to the patient's previous EBUS ([id number]) in which malignant cells derived from nonsmall cell carcinoma was identified. Case has been reviewed in consultation with Dr. Dodge who concurs with the above diagnosis. IDC:SJ CYTOLOGY STUDY Slides are reviewed. CYTOLOGY GROSS Received is 1350 ml of nestor cloudy fluid labeled with the patient's name and and designated per the requisition as thoracentesis. Submitted for cytology preparation including cell block. / ellyn 10/15/2020 TC:0 CPT: 15195, 41798, 55148
[2020-10-14] MEDS: Ipratropium 0.5 MG/2.5 ML SOLUTION INHALATION ×5 (03:25→18:57)
[2020-10-14] MEDS: LORazepam 2 MG/ML Syringe 1 MG IV (04:24)
[2020-10-14] MEDS: 0.9% Saline Lock 10 ML Syringe IV ×2 (04:24→10:25)
--- NOTE | 2020-10-14 04:30 | CPS ---
Pts WOB appeared to be getting worse throughout the night. Oxygen had to be increased from 5 to 8L to maintain 90% SpO2. Breath sounds more coarse than before and RR 28-30. Pt also very anxious. RN notified Dr. Figueroa and Bipap and ativan was ordered. Pt did not tolerate Bipap and was pulling less than 200 tidal volumes. Pt switched to AVAPS and tolerated much better with tidal volume close to 400. Pt much more relaxed and comfortable. SpO2 95% on 50% FiO2 and RR 14. notified of PAP change.
[2020-10-14] MEDS: Nystatin Powder 15gm Bottle 1 APPLIC TOPICAL ×3 (05:41→21:09)
--- NOTE | 2020-10-14 07:26 | PCM.PN.INT ---
Assessment & Plan Assessment/Plan (1) Primary adenocarcinoma of upper lobe of right lung: (2) Postobstructive pneumonia: (3) Pleural effusion: PLAN: RECOMMENDATIONS: 1. Potentially restart anticoagulation once thoracentesis completed if no complications 2. Proceed with thoracentesis later today following consent 3. PT/OT to evaluate 4. Increase activity as tolerated IMPRESSIONS: 1. Acute hypoxic respiratory insufficiency secondary to right pleural effusion with possible postobstructive pneumonia Anticoagulation has been held. Patient with significant progression in respiratory status decompensation. Will need a thoracentesis today. Interventional radiology is not available, so this will be done by myself as a separate procedure. Patient does not have a history of pleural effusion previously. Differential diagnosis would include malignant effusion, Keytruda side effect or transudate such as CHF. Will obtain a diagnostic and therapeutic thoracentesis once bleeding risk is marginalized. Reasonable to treat with antibiotics at this point, but review of the scan appears to show more compressive atelectasis. 2. Lung adenocarcinoma/recent CVA/history of hemoptysis/depression/protracted recovery Complicates care, management, recovery and prognosis. Reasonable to obtain a PT/OT evaluation to continue with therapy as patient can tolerate. Likely reinitiate anticoagulation following thoracentesis with Lovenox given patient's ongoing malignancy. Subjective Subjective Patient with decompensation overnight. Nursing reported increasing anxiety and was treated with Ativan. Patient subsequently required BiPAP therapy. Patient would open her eyes to stimulation, but unable to answer any questions. Objective Data Objective Data Vital Signs: Vital Signs Temp Pulse Resp BP Pulse Ox 36.6 C 94 26 H 111/75 95 10/14/20 03:20 10/14/20 06:34 10/14/20 04:30 10/14/20 03:20 10/14/20 04:30 Oxygen Flow Rate (L/min) 8 Oxygen Delivery Method Nasal Cannula Weight: 62.6 kg Body Mass Index (BMI) 25.8 Intake & Output: Intake and Output for Last 24 Hours 10/12/20 10/13/20 10/14/20 23:59 23:59 23:59 Intake Total 1150 / 1150 700 / 700 50 / 50 Output Total 700 / 700 50 / 50 Balance 1150 / 1000 0 / 0 0 / 0 Medical Nutrition Assessment Dietitian: Nutrition Therapy Diagnosis Start: 10/13/20 11:41 Freq: Status: Active Protocol: Document 07/24/21 13:02 BP (Rec: 10/13/20 13:02 BP [id number]) Nutrition Malnutrition Evidence of Malnutrition Exists No Intake Problem Inadequate Oral Intake Etiology related to chewing/swallowing difficulty from CVA Signs/Symptoms as evidenced by pt unable to meet estimated nutrition needs on PO diet alone, consuming ~ </=50% of meals served requiring enteral nutrition supplementation at night. Status Active Problem Recommendation Dietitian Recommendations/Changes Pt unable to meet estimated nutrient needs via PO diet alone- consuming </=50% of meals served. Rec Jevity 1.5 continuous feed via PEG ( starting 20:00 to 06:00) at 90 ml/hr with 95 ml flush every 4 hours to provide 1080 calories, 46 grams protein, and 1148 ml free water flush per day. Continue TF flushes every 4 hours throughout day. Continue regular diet with texture modifications per BROADCAST MAINTENANCE ENGINEER. Lab / Micro Data Result Diagrams: 10/13/20 06:30 10/13/20 06:30 Labs: Laboratory Results - last 24 hr 10/13/20 06:30: Sodium 134 L, Potassium 3.7, Chloride 99, Carbon Dioxide 30.0, Anion Gap 5, BUN 8, Creatinine 0.39 L, Estim Creat Clear Calc 41.76, Est GFR (MDRD) Af Amer 212, Est GFR (MDRD) Non-Af 175, BUN/Creatinine Ratio 20.6 H, Glucose 108 H, Calcium 9.0, Total Bilirubin 0.50, AST 17, ALT 26, Alkaline Phosphatase 78, Total Protein 6.8, Albumin 2.0 L, Globulin 4.8 H, Albumin/Globulin Ratio 0.4 L Micro: Microbiology 10/12/20 16:34 Mucosa - Nose SARS-CoV-2 Antigen (Rapid) - Final Physical Exam Const no apparent distress General Appearance: cooperative, well developed, lethargic and on BiPAP HEENT normocephalic, head/scalp atraumatic and moist oral mucous membranes Eyes PERRL and EOMs intact bilaterally Neck full ROM and no lymphadenopathy Chest inspection of chest normal Resp no use of accessory muscles Effort and Inspection: Negative for able to speak in complete sentences Auscultation: diminished lung sounds; Negative for rales, rhonchi or wheezes Percussion: dullness Upper: right, Mid: right and Lower: right Cardio regular rate, regular rhythm, S1 normal heart sound, S2 normal heart sound, no murmurs, no rub and no gallops GI normal to inspection, nondistended, normoactive bowel sounds no CVA tenderness Extremity no clubbing, cyanosis or edema Skin no rashes or lesions noted Neuro oriented x3 Neuro Narrative: Left-sided paralysis. Some left upper extremity sensation noted. Psych cooperative and affect normal Charges/Coding Visit Charges Inpatient E&M: 36644 Subs Hosp L3
[2020-10-14 07:31] LABS: Absolute Lymphocyte Count 0.69 X10^3/uL (0.83-4.51); Absolute Neutrophil Count 8.5 X10^3/uL (2.0-7.7); Basophil# 0.06 X10^3/uL; Basophil% 0.6 % (0-1); Eosinophil# 0.17 X10^3/uL; Eosinophils% 1.6 % (0-5); Hematocrit 32.1 % (37-47); Lymphocyte # 0.69 X10^3/ul (0.83-4.51); Lymphocyte % 6.6 % (19-41); Mean Corp Hgb Conc 31.2 g/dL (32-36); Mean Corpuscular Hgb 25.1 pg (27.0-32.0); Mean Corpuscular Volume 80.7 fL (81-99); Mean Platelet Vol. 8.7 fl (6.2-12.0); Monocyte% 9.5 % (0-10); NRBC Flagged by Analyzer 0 % (0-5); Neutrophil % 80.9 % (47-70); Platelet Count 510 K/mm3 (150-450); RBC Distribution Width CV 16.1 % (11.6-14.6); RBC Distribution Width SD 46.8 fl (35.1-43.9); Red Blood Count 3.98 M/mm3 (4.2-5.4); White Blood Count 10.5 K/mm3 (4.4-11.0)
[2020-10-14 07:58] LABS: ALB/GLOB Ratio 0.4 RATIO (0.9-2.4); AST(SGOT) 15 U/L (15-37); Alanine Aminotransfer ALT/SGPT 23 U/L (13-56); Albumin, Serum 1.9 g/dL (3.2-5.0); Alkaline Phosphatase 71 U/L (45-117); Anion Gap 6 (5-15); BUN 10 mg/dL (7-18); BUN/Creat Ratio 28.6 RATIO (10-20); Chloride 98 mmol/L (98-107); Creatinine, Serum 0.35 mg/dL (0.55-1.02); EST Glomerular Filtration Rate 198 mL/min (>60); Est Glom Filt Rate - Afr Amer 239 mL/min (>60); Estimated Creatinine Clearance 41.76 ml/min; Globulin 4.5 g/dL (2.2-4.2); Glucose 115 mg/dL (74-106); Potassium 3.5 mmol/L (3.5-5.1); Protein, Total 6.4 g/dL (6.4-8.2); Sodium Level 134 mmol/L (136-145)
[2020-10-14 08:03] LABS: International Normalized Ratio 1.2; Prothrombin Time (Protime)PT. 14.1 SECONDS (11.7-14.9)
[2020-10-14 08:04] LABS: Partial Thromboplast Time 32.4 Seconds (24.1-36.2)
[2020-10-14 08:10] LABS: LDH 197 U/L (84-246)
--- NOTE | 2020-10-14 08:43 | RAD_ITS ---
STUDY: X-RAY CHEST REASON FOR EXAM: Female, 64 years old. Post thoracentesis TECHNIQUE: Single AP portable view of the chest. COMPARISON: 10/12/2020 FINDINGS: Interval resolution of right-sided pleural effusion with no pneumothorax after right thoracentesis. Some bibasilar atelectasis. There is no demonstrated pleural abnormality. There is moderate cardiac enlargement. Normal mediastinum and rola. Normal visualized pulmonary arteries. Normal visualized aortic arch and descending thoracic aorta. Normal visualized thoracic spine. Normal visualized ribs, clavicles, and shoulders. There is no demonstrated abnormality of the visualized soft tissue structures of the upper abdomen. RAD/Chest 1 View IMPRESSION: Interval resolution of right-sided pleural effusion with no pneumothorax after right thoracentesis. Electronically Signed: Ramon Barillas MD at 9:06 EDT Tel , Service support ,
--- NOTE | 2020-10-14 08:45 | PRO.PCM_ITS ---
Assessment & Plan Assessment/Plan (1) Pleural effusion: (2) Hypoxia: Procedure Report Date of Procedure: 10/14/20 THORACENTESIS REPORT Consent: Daughter Indication: Right-sided pleural effusion Timeout procedure: Complete with nurses at the bedside at 8:22 AM Procedure: After confirmation of informed consent and timeout procedure, the patient was prepped in the usual fashion. Right side was percussed and found dullness three quarters of the right side. A good pocket was found using ultrasound guidance. The area was prepped in a sterile fashion and local an esthetic with 1% lidocaine was administered. Approximately 4 cc was required. The skin was nicked using associated scalpel. The thoracentesis safety needle was advanced into the right chest until fluid was recovered. Catheter was advanced and 60 cc were removed for laboratory testing. An additional 1300 cc of slightly bloody serosanguineous fluid was removed using Vacutainer bottles. Patient did have some coughing during the procedure, but otherwise tolerated well. Chest x-ray is currently ordered. This procedure was completed independently of daily evaluation for hypoxia. Complications: None EBL: Less than 5 cc Procedures Hospitalists Procedures: 15073 Aspirate Pleura w/Imaging
--- NOTE | 2020-10-14 08:51 | NURSING ---
Pt had bedside thoracentesis. Time out called by Dr. Calles at 08:22. 1360ccs of dark tea/blood tinged fluid removed by Dr. Calles.
[2020-10-14 09:46] LABS: Body Fluid Mononuclear WBC # 1.445 10^3/uL; Body Fluid Polynuclear WBC # 0.093 10^3/uL; Body Fluid Total Cells Counted 5.727 10^3/ul; Red Cell Count/Body Fluid 0.039 10^6/ul; White Blood Count/Body Fluid 1.538 10^3/uL
--- NOTE | 2020-10-14 10:06 | CPS ---
Pt taken off BiPap per Dr. Calles to do thoracentesis procedure. Pt placed on 8lpm oxygen and doing well. Pt satting 91% on 8lpm after procedure.
[2020-10-14] MEDS: Fluticasone 0.05% 1 SPRAY NASAL.SRY 2 SPRAY NASAL (10:13)
[2020-10-14] MEDS: Glycerin/Hypromellose/PEG400 15 ml Bottle 1 DRP EACH EYE ×2 (10:13→21:05)
[2020-10-14] MEDS: Menthol/Lanolin/Calamine/Znox 113 GM Tube 1 APPLIC TOPICAL ×2 (10:13→21:05)
[2020-10-14] MEDS: Nystatin Ointment 1 APPLIC TOPICAL ×2 (10:14→21:08)
[2020-10-14] MEDS: levETIRAcetam Oral Solution 500 MG/5 ML 750 MG GT ×2 (10:17→21:06)
[2020-10-14] MEDS: Lansoprazole 15 MG Capsule.DR 30 MG GT (10:17)
[2020-10-14] MEDS: Losartan Potassium 25 MG Tablet 12.5 MG GT (10:17)
[2020-10-14] MEDS: Cholecalciferol (VIT D3) 25 MCG TABLET (1,000 UNITS) 50 MCG GT (10:18)
[2020-10-14] MEDS: Citalopram 20 MG Tablet GT (10:18)
[2020-10-14] MEDS: levoFLOXacin IV 750 MG/150 ML BAG 100 MG IV (10:25)
[2020-10-14 10:38] LABS: Appearance/Body Fluid SL CLDY; Auto B Fluid Analyzer BKGD Ct COUNTS W/IN LIMITS (W/IN LIMITS); Color/Body Fluid PINK; Lymphocytes 2 %; Mesothelial Cells 98 %
[2020-10-14 10:39] LABS: Source- Body Fluid PLEURAL FLUID
[2020-10-14 10:41] LABS: Body Fluid QC Type(s) BF1
--- NOTE | 2020-10-14 11:15 | PCM.PN.HOSP ---
Documented by User: Fausto MULLINS 10/14/20 11:29 Subjective Subjective Patient is a 64-year-old female comfortably resting in bed after thoracentesis, not able to asses status as patient was recovering from a dose of Ativan given for BiPAP and thoracentesis. Objective Data Objective Data Vital Signs: Vital Signs Temp Pulse Resp BP Pulse Ox 97.1 F L 96 22 H 111/63 94 10/14/20 10:00 10/14/20 10:00 10/14/20 10:00 10/14/20 10:00 10/14/20 10:00 Oxygen Flow Rate (L/min) 7 Oxygen Delivery Method Nasal Cannula Weight: 138 lb 0.15 oz Body Mass Index (BMI) 25.8 Intake & Output: Intake and Output for Last 24 Hours 10/12/20 10/13/20 10/14/20 23:59 23:59 23:59 Intake Total 1150 / 1150 700 / 700 100 / 100 Output Total 700 / 700 50 / 50 Balance 1150 / 1000 0 / 0 50 / 50 Medical Nutrition Assessment Dietitian: Nutrition Therapy Diagnosis Start: 10/13/20 11:41 Freq: Status: Active Protocol: Document 10/14/20 08:51 BP (Rec: 10/14/20 08:51 BP [id number]) Nutrition Malnutrition Evidence of Malnutrition Exists No Intake Problem Inadequate Oral Intake Etiology related to chewing/swallowing difficulty from CVA Signs/Symptoms as evidenced by pt unable to meet estimated nutrition needs on PO diet alone, consuming ~ </=50% of meals served requiring enteral nutrition supplementation at night. Status Active Problem Recommendation Dietitian Recommendations/Changes Pt unable to meet estimated nutrient needs via PO diet alone- consumed </=50% of meals served. Rec Jevity 1.5 continuous feed via PEG ( starting 20:00 to 06:00) at 90 ml/hr with 95 ml flush every 4 hours to provide 1080 calories, 46 grams protein, and 1148 ml free water flush per day. Continue TF flushes every 4 hours throughout day. Continue regular diet with texture modifications per [employer]. Ensure pudding with meals for additional maximiliano/pro if consumed. Lab / Micro Data Result Diagrams: 10/14/20 12:30 10/14/20 06:45 Labs: Laboratory Results - last 24 hr 10/14/20 06:45: WBC 10.5, RBC 3.98 L, Hgb 10.0 L, Hct 32.1 L, MCV 80.7 L, MCH 25.1 L, MCHC 31.2 L, RDW Std Deviation 46.8 H, RDW Coeff of Fermin 16.1 H, Plt Count 510 H, MPV 8.7, Immature Gran % (Auto) 0.800, Neut % (Auto) 80.9 H, Lymph % (Auto) 6.6 L, [place] % (Auto) 9.5, Eos % (Auto) 1.6, Baso % (Auto) 0.6, Absolute Neuts (auto) 8.5 H, Absolute Lymphs (auto) 0.69 L, Nucleated RBC % 0 10/14/20 06:45: Sodium 134 L, Potassium 3.5, Chloride 98, Carbon Dioxide 30.0, Anion Gap 6, BUN 10, Creatinine 0.35 L, Estim Creat Clear Calc 41.76, Est GFR (MDRD) Af Amer 239, Est GFR (MDRD) Non-Af 198, BUN/Creatinine Ratio 28.6 H, Glucose 115 H, Calcium 9.0, Total Bilirubin 0.50, AST 15, ALT 23, Alkaline Phosphatase 71, Total Protein 6.4, Albumin 1.9 L, Globulin 4.5 H, Albumin/Globulin Ratio 0.4 L 10/14/20 06:45: PT 14.1, INR 1.2, APTT 32.4 10/14/20 : Lactate Dehydrogenase 197 10/14/20 : Fluid Source PLEURAL FLUID, Fluid Color PINK, Fluid Appearance SL CLDY, Fluid WBC 1.538, Fluid RBC 0.039, Fluid Tot Cell Count 5.727 H, Fld Polynuclear WBCs # 0.093, Fld Polynuclear WBCs % 6.0, Fluid Mononuclear WBCs 1.445, Fld Mononuclear WBCs % 94.0, Fluid Lymphocytes 2, Fld Mesothelial Cells 98, Fl Pathologist Comment May follow, Fluid Comment 2 SEE COMMENT Micro: Microbiology 10/12/20 16:34 Mucosa - Nose SARS-CoV-2 Antigen (Rapid) - Final Radiography Diagnostic Testing: Radiology Impression Chest X-Ray 10/14/20 08:43 IMPRESSION: Interval resolution of right-sided pleural effusion with no pneumothorax after right thoracentesis. Electronically Signed: Ramon Barillas MD at 9:06 EDT Tel , Service support , Physical Exam Const Constitutional Narrative: Patient unable to provide much insight into current condition as she was lethargic and sedated from Ativan given for procedure. HEENT head/scalp atraumatic and moist oral mucous membranes Head and Scalp: normocephalic Eyes EOMs intact bilaterally and conjunctivae normal Neck no lymphadenopathy, supple and no JVD Resp Effort and Inspection: tachypneic and labored Auscultation: diminished lung sounds Cardio regular rate, regular rhythm, no murmurs and no JVD GI normal to inspection, nondistended, normoactive bowel sounds, soft to palpation and non-tender Extremity normal to inspection, full ROM and no clubbing, cyanosis or edema Skin no rashes or lesions noted, no wounds, skin turgor normal and no jaundice Neuro Neuro Narrative: Unable to assess due to sedation from Ativan. Psych Psych Narrative: Unable to assess due to sedation from Ativan. Assessment & Plan Assessment/Plan (1) Postobstructive pneumonia: (2) Hypoxia: (3) Hypernatremia: (4) Pleural effusion: (5) Right lower lobe lung mass: PLAN: Day 3: See subjective. Discharge plan: Case management following, patient cannot return to [facility] without PRECERT, will need to reiniitate pre-cert on Thursday. 1) hypoxia secondary to right pleural effusion with possible postobstructive pneumonia Pulmonology following. Thoracentesis completed on 10/14 for right sided pleural effusion withdrew 1300cc of serosanguinous fluid. Possible additional thoracentesis may be needed for 10/15, per pulmonology. Etiology of pleural effusion could possibly be malignancy, side effect of Keytruda regimen or transudate secondary to CHF. Plan; thoracentesis as above, continue IV Levaquin for possible postobstructive pneumonia, O2 per protocol, will reinitiate anticoagulation if no additional thoracentesis indicated. 2) Hypernatremia Stable, currently 134. Continue to monitor BMP. 3) History of CVA with left hemiplegia Patient is a resident at [facility], however will need pre-CERT to reenter [facility] as noted above. Patient is alert and oriented only to self, unaware of patient mentation at baseline. DVT prophylaxis ? SCDs, will reinitiate anticoagulation if no additional thoracentesis indicated. Patient seen by Fausto Scott PA-C, under the supervision of Dr. Conklin. Documented by User: Dr. Carmen Conklin MD 10/14/20 15:48 Objective Data Lab / Micro Data Result Diagrams: 10/14/20 12:30 10/14/20 06:45 Charges/Coding Addendum Addendum: This patient was seen in conjunction with HARPREET Torres. I have independently interviewed and examined the patient and reviewed pertinent historical, laboratory, and other data. Please refer to HARPREET Torres's note for his patient's presentation, findings, and recommendations. I have reviewed and his note and concur with his documentation Patient was seen and examined. Patient had bedside thoracocentesis done; 1160 of slightly bloody serosanguineous fluid were removed. Sample sent to the lab. Discussed with pulmonology, patient will need reevaluation in a.m. with PA and lateral chest x-ray and possible retap. Physical Exam: Gen: Appears comfortable, not pale, not jaundiced, in mild respiratory distress CVS:HS I +II, regular, no murmurs RESP: Diminished at lung bases, scattered wheezes GI: BS present and normal, soft, nontender, no palpable organs EXT:No edema ASSESSMENT: 1. Hypoxia 2. Pleural effusion, 3. Right lower lung mass 4. Postobstructive pneumonia 5. Hypernatremia Plan: Continue with PEG tube with tube flushes Continue on IV Levaquin Continue on ipratropium breathing treatments Visit Charges Inpatient E&M: 25261 Subs Hosp L2
[2020-10-14 12:06] LABS: Glucose, Body Fluid 60 mg/dL (40-70); LDH,Body Fluid 641 Units/l (Not Establ.); Protein, Body Fluid 4.3 g/dL (Not Establ.)
[2020-10-14 12:53] LABS: Absolute Lymphocyte Count 0.81 X10^3/uL (0.83-4.51); Absolute Neutrophil Count 8.8 X10^3/uL (2.0-7.7); Basophil# 0.07 X10^3/uL; Basophil% 0.6 % (0-1); Eosinophils% 1.8 % (0-5); Hematocrit 32.2 % (37-47); Hemoglobin 10.1 g/dL (12.0-15.0); Lymphocyte # 0.81 X10^3/ul (0.83-4.51); Lymphocyte % 7.3 % (19-41); Mean Corp Hgb Conc 31.4 g/dL (32-36); Mean Corpuscular Volume 79.7 fL (81-99); Mean Platelet Vol. 8.3 fl (6.2-12.0); Monocyte# 1.15 X10^3/uL; Monocyte% 10.3 % (0-10); NRBC Flagged by Analyzer 0 % (0-5); Neutrophil # 8.84 X10^3/uL (2.7-7.7); Neutrophil % 79.5 % (47-70); Platelet Count 482 K/mm3 (150-450); RBC Distribution Width CV 16.2 % (11.6-14.6); RBC Distribution Width SD 46.5 fl (35.1-43.9); Red Blood Count 4.04 M/mm3 (4.2-5.4); White Blood Count 11.1 K/mm3 (4.4-11.0)
[2020-10-14] MEDS: Doxazosin 1 MG Tablet GT (21:06)
[2020-10-14] MEDS: Atorvastatin Calcium 80 MG Tablet GT (21:07)
[2020-10-14] MEDS: MELATONIN 3 MG TABLET 6 MG GT (21:08)
[2020-10-14] MEDS: 0.9% Normal Saline 1,000 ML 100 ML IV (21:10)
[2020-10-15] VITALS (21 sets, daily range): BP systolic 92–115; BP diastolic 53–70; PULSE 89–105; RESP 16–26; TEMP 36.5–37.1; O2SAT 90–100
[2020-10-15] MEDS: Nystatin Powder 15gm Bottle 1 APPLIC TOPICAL ×3 (06:04→20:29)
[2020-10-15 06:43] LABS: Anion Gap 6 (5-15); BUN 11 mg/dL (7-18); BUN/Creat Ratio 41.7 RATIO (10-20); Calcium,Total 8.2 mg/dL (8.5-10.1); Chloride 100 mmol/L (98-107); Creatinine, Serum 0.26 mg/dL (0.55-1.02); EST Glomerular Filtration Rate 273 mL/min (>60); Est Glom Filt Rate - Afr Amer 331 mL/min (>60); Estimated Creatinine Clearance 41.76 ml/min; Glucose 98 mg/dL (74-106); Potassium 3.3 mmol/L (3.5-5.1); Sodium Level 136 mmol/L (136-145)
[2020-10-15] MEDS: Ipratropium 0.5 MG/2.5 ML SOLUTION INHALATION ×3 (07:03→19:25)
[2020-10-15 07:56] LABS: Cytology, Body Fluid / CSF SEE PATHOLOGY REPORT
--- NOTE | 2020-10-15 08:15 | RAD_ITS ---
HISTORY: SOB. TECHNIQUE: XR Chest 2 Views. EXAM TIME: 2020-10-15 08:13. # of images incl. paperwork: 2. COMPARISON:10/14/2020. FINDINGS: LINES/DEVICES: None. CARDIOMEDIASTINAL BORDERS: Stable. LUNGS: Increased opacities in the right perihilar and right lung base. Increased mild right basilar opacity. PLEURA: Increase mild pleural effusions. RAD/Chest PA and Lateral IMPRESSION: Increased pleural effusions with increased bilateral atelectasis or pneumonia. at 0912 Reported and signed by: Brittny Atkinson MD Electronically Signed: Brittny Atkinson MD at 9:11 EDT Tel , Service support ,
--- NOTE | 2020-10-15 09:24 | CASEMGMT ---
[facility] faxed all clinicals to [place] where patient is from. [facility] will fax PT/OT evaluations once completed and in the computer so [place] can start the pre-cert. Plan: d/c back to [place] when ready and when pre-cert is received. Bharati Chanec [employer]
--- NOTE | 2020-10-15 10:09 | US_ITS ---
PROCEDURE: ULTRASOUND GUIDED THORACENTESIS. DATE: 10/15/2020. INDICATION: Female, 64 years old. Right pleural effusion. PHYSICIAN: Gilles Severino M.D. PROCEDURE: The risks, benefits, and alternatives to the procedure were explained to the patient and patient''s daughter. The specific risks of bleeding, infection, and pneumothorax requiring chest tube insertion were discussed and accepted. Written informed consent was obtained. Ultrasonographic evaluation of the right lower pleural space was carried out. An adequate pocket was identified. The patient was placed in the sitting, upright position. The overlying skin was prepped and draped in sterile fashion. 1% lidocaine was administered subcutaneously for local anesthesia. Under ultrasound guidance, a 5 Macedonian thoracentesis needle/catheter system was advanced into the right posterior lower pleural fluid collection. Approximately 500 mL of dark nestor-colored fluid was drained. The catheter was removed, and a sterile dressing was applied. The patient tolerated the procedure well. A chest x-ray was ordered. US/Thoracentesis W US IMPRESSION: Ultrasound-guided right thoracentesis. Electronically Signed: Gilles Severino MD at 12:32 EDT , Service support ,
[2020-10-15] MEDS: 0.9% Normal Saline 1,000 ML 100 ML IV ×2 (10:35→22:23)
[2020-10-15] MEDS: Glycerin/Hypromellose/PEG400 15 ml Bottle 1 DRP EACH EYE ×2 (10:38→20:28)
[2020-10-15] MEDS: Cholecalciferol (VIT D3) 25 MCG TABLET (1,000 UNITS) 50 MCG GT (10:39)
[2020-10-15] MEDS: Menthol/Lanolin/Calamine/Znox 113 GM Tube 1 APPLIC TOPICAL ×2 (10:39→20:29)
[2020-10-15] MEDS: Lansoprazole 15 MG Capsule.DR 30 MG GT (10:39)
[2020-10-15] MEDS: Fluticasone 0.05% 1 SPRAY NASAL.SRY 2 SPRAY NASAL (10:39)
[2020-10-15] MEDS: Losartan Potassium 25 MG Tablet 12.5 MG GT (10:40)
[2020-10-15] MEDS: Nystatin Ointment 1 APPLIC TOPICAL ×2 (10:40→20:30)
[2020-10-15] MEDS: Citalopram 20 MG Tablet GT (10:40)
[2020-10-15] MEDS: levETIRAcetam Oral Solution 500 MG/5 ML 750 MG GT ×2 (10:41→20:30)
[2020-10-15] MEDS: Lidocaine 2% (5ml sdv) 5 ML VIAL.MPF INFILT (10:45)
--- NOTE | 2020-10-15 11:25 | RAD_ITS ---
STUDY: X-RAY CHEST REASON FOR EXAM: Female, 64 years old. Pneumothorax TECHNIQUE: AP inspiration and expiration views. COMPARISON: Comparison is made with prior study dated 10/15/2020 at 8:19 AM. FINDINGS: EKG electrodes are seen. The patient is status post right thoracentesis. There is no evidence of pneumothorax. There is evidence of inferior subluxation of the left shoulder joint. RAD/Chest Insp/Exp 2 View IMPRESSION: Status post right thoracentesis. There is no evidence of pneumothorax. Electronically Signed: Gilles Severino MD at 12:31 EDT , Service support ,
--- NOTE | 2020-10-15 11:43 | NURSING ---
SHANNON Aguillon spoke with pt's daughter Es before and after thoracentesis. Daughter is aware 450mL was drained today from right pleural space after 1300mL was removed yesterday from right pleural space.
--- NOTE | 2020-10-15 12:24 | PN.CC_ITS ---
Assessment & Plan Assessment/Plan (1) Pleural effusion: PLAN: RECOMMENDATIONS: 1. Continue empiric antimicrobials. 2. Await pleural fluid analysis and cytology results. 3. Encourage incentive spirometer use while in bed. IMPRESSIONS: 1. Acute hypoxemic respiratory failure secondary to right pleural effusion and possible postobstructive pneumonia The patient has a known history of non-small cell lung cancer of the right lower lobe and a sizable right-sided effusion noted on chest imaging. There is also concern for possible postobstructive pneumonia. The patient has been through two separate thoracenteses procedures at this time. Per traditional Light's criteria, if at least one of the following three is fulfilled, the fluid would be considered an exudate: 1. Pleural fluid protein/serum protein ratio greater than 0.5 2. Pleural fluid LDH/serum LDH ratio greater than 0.6 3. Pleural fluid LDH greater than two thirds the upper limits of the laboratories normal serum LDH Based upon my review of the patient's pleural fluid analysis, along with serum LDH and total protein levels, the pleural fluid would be considered exudative in nature. There is some concern that the patient's effusion could represent a malignant process. In addition, infection would also be a consideration. The patient will be continued on antimicrobials. Plan to continue to wean supplemental oxygen to maintain saturations at or above 90%. Await pleural fluid analysis and results of cytology. 2. Lung adenocarcinoma/recent CVA/history of hemoptysis/depression/protracted recovery Complicates care, management, recovery and prognosis. Reasonable to obtain a PT/OT evaluation to continue with therapy as patient can tolerate. Likely reinitiate anticoagulation following thoracentesis with Lovenox given patient's ongoing malignancy. This note was generated with [employer] dictation software. It may contain incorrect words, spelling, and punctuation that were not noted in checking the note before signing. Subjective Subjective The patient was seen and examined at the bedside this morning. Events from the last 24 hours have been reviewed. The patient is currently afebrile, hemodynamically stable and maintaining appropriate oxygen saturations on 5 L/min via nasal cannula. The patient did tolerate a bedside ultrasound-guided th oracentesis yesterday with 1.3 L of fluid removed. The patient was also just taken down earlier today for a repeat thoracentesis with an additional 500 mL of fluid removed. She does report some interval improvement in her shortness of breath. Objective Data Objective Data The patient's most recent lab work, culture data and imaging studies have all been personally reviewed. Vital Signs: Vital Signs Temp Pulse Resp BP Pulse Ox 98.7 F 97 26 H 115/64 97 10/15/20 10:30 10/15/20 12:00 10/15/20 11:00 10/15/20 11:00 10/15/20 10:30 Oxygen Flow Rate (L/min) [2] 6 Oxygen Flow Rate (L/min) [1 ( 6 Initial Baseline)] Oxygen Flow Rate (L/min) 6 Oxygen Delivery Method [2] Nasal Cannula Oxygen Delivery Method [1 ( Nasal Cannula Initial Baseline)] Oxygen Delivery Method Nasal Cannula Weight: 62 kg Body Mass Index (BMI) 25.8 Intake & Output: Intake and Output for Last 24 Hours 10/13/20 10/14/20 10/15/20 23:59 23:59 23:59 Intake Total 700 / 700 550 / 550 1050.00 / 1050.00 Output Total 700 / 700 1610 / 1610 450 / 450 Balance 0 / 0 -1060 / -1060 600.00 / 600.00 Medical Nutrition Assessment Dietitian: Nutrition Therapy Diagnosis Start: 10/13/20 11:41 Freq: Status: Active Protocol: Document 10/14/20 08:51 BP (Rec: 10/14/20 08:51 BP [id number]) Nutrition Malnutrition Evidence of Malnutrition Exists No Intake Problem Inadequate Oral Intake Etiology related to chewing/swallowing difficulty from CVA Signs/Symptoms as evidenced by pt unable to meet estimated nutrition needs on PO diet alone, consuming ~ </=50% of meals served requiring enteral nutrition supplementation at night. Status Active Problem Recommendation Dietitian Recommendations/Changes Pt unable to meet estimated nutrient needs via PO diet alone- consumed </=50% of meals served. Rec Jevity 1.5 continuous feed via PEG ( starting 20:00 to 06:00) at 90 ml/hr with 95 ml flush every 4 hours to provide 1080 calories, 46 grams protein, and 1148 ml free water flush per day. Continue TF flushes every 4 hours throughout day. Continue regular diet with texture modifications per SENIOR GEOLOGIST. Ensure pudding with meals for additional maximiliano/pro if consumed. Lab / Micro Data Result Diagrams: 10/16/20 05:20 10/16/20 05:20 Labs: Laboratory Results - last 24 hr 10/14/20 12:30: WBC 11.1 H, RBC 4.04 L, Hgb 10.1 L, Hct 32.2 L, MCV 79.7 L, MCH 25.0 L, MCHC 31.4 L, RDW Std Deviation 46.5 H, RDW Coeff of Fermin 16.2 H, Plt Count 482 H, MPV 8.3, Immature Gran % (Auto) 0.500, Neut % (Auto) 79.5 H, Lymph % (Auto) 7.3 L, [place] % (Auto) 10.3 H, Eos % (Auto) 1.8, Baso % (Auto) 0.6, Absolute Neuts (auto) 8.8 H, Absolute Lymphs (auto) 0.81 L, Nucleated RBC % 0 10/15/20 05:35: Sodium 136, Potassium 3.3 L, Chloride 100, Carbon Dioxide 30.0, Anion Gap 6, BUN 11, Creatinine 0.26 L, Estim Creat Clear Calc 41.76, Est GFR (MDRD) Af Amer 331, Est GFR (MDRD) Non-Af 273, BUN/Creatinine Ratio 41.7 H, Glucose 98, Calcium 8.2 L Micro: Microbiology 10/14/20 Unknown Fluid - Pleural (Lung) Gram Stain - Final 10/14/20 Unknown Fluid - Pleural (Lung) Body Fluid Culture - Preliminary No growth-Final to follow 10/12/20 16:58 Blood Culture (Wb) #2 - Anticubital Right Blood Culture - Preliminary No growth in 48 hours. 10/12/20 16:10 Blood Culture (Wb) - Right Wrist Blood Culture - Preliminary No growth in 48 hours. 10/12/20 16:34 Mucosa - Nose SARS-CoV-2 Antigen (Rapid) - Final Radiography Diagnostic Testing: Radiology Impression Chest X-Ray 10/15/20 08:15 IMPRESSION: Increased pleural effusions with increased bilateral atelectasis or pneumonia. at 0912 Reported and signed by: Brittny Atkinson MD Electronically Signed: Brittny Atkinson MD at 9:11 EDT Tel , Service support , Physical Exam Const alert and no apparent distress General Appearance: cooperative HEENT normocephalic and head/scalp atraumatic Eyes PERRL, EOMs intact bilaterally and conjunctivae normal Neck supple General: trachea midline Resp normal respiratory effort Auscultation: diminished lung sounds Cardio regular rate and regular rhythm GI normal to inspection, nondistended, normoactive bowel sounds Extremity no clubbing, cyanosis or edema Skin no rashes or lesions noted Neuro oriented x3 and CN's II-XII intact bilaterally Psych Mood & Affect: flat affect Charges/Coding Visit Charges Inpatient E&M: 16356 Subs Hosp L2
--- NOTE | 2020-10-15 12:42 | PCM.PN.HOSP ---
Documented by User: Fausto MULLINS 10/15/20 12:51 Subjective Subjective Patient is a 64-year-old female comfortably resting in bed, alert to self only. Patient cannot provide much insight into her current status as she is chronically confused due to prior CVA. Objective Data Objective Data Vital Signs: Vital Signs Temp Pulse Resp BP Pulse Ox 98.7 F 96 18 98/57 L 96 10/15/20 12:30 10/15/20 12:30 10/15/20 12:30 10/15/20 12:30 10/15/20 12:30 Oxygen Flow Rate (L/min) [2] 6 Oxygen Flow Rate (L/min) [1 ( 6 Initial Baseline)] Oxygen Flow Rate (L/min) 5 Oxygen Delivery Method [2] Nasal Cannula Oxygen Delivery Method [1 ( Nasal Cannula Initial Baseline)] Oxygen Delivery Method Nasal Cannula Weight: 136 lb 10.986 oz Body Mass Index (BMI) 25.8 Intake & Output: Intake and Output for Last 24 Hours 10/13/20 10/14/20 10/15/20 23:59 23:59 23:59 Intake Total 700 / 700 550 / 550 1050.00 / 1050.00 Output Total 700 / 700 1610 / 1610 700 / 700 Balance 0 / 0 -1060 / -1060 350.00 / 350.00 Medical Nutrition Assessment Dietitian: Nutrition Therapy Diagnosis Start: 10/13/20 11:41 Freq: Status: Active Protocol: Document 10/14/20 08:51 BP (Rec: 10/14/20 08:51 BP [id number]) Nutrition Malnutrition Evidence of Malnutrition Exists No Intake Problem Inadequate Oral Intake Etiology related to chewing/swallowing difficulty from CVA Signs/Symptoms as evidenced by pt unable to meet estimated nutrition needs on PO diet alone, consuming ~ </=50% of meals served requiring enteral nutrition supplementation at night. Status Active Problem Recommendation Dietitian Recommendations/Changes Pt unable to meet estimated nutrient needs via PO diet alone- consumed </=50% of meals served. Rec Jevity 1.5 continuous feed via PEG ( starting 20:00 to 06:00) at 90 ml/hr with 95 ml flush every 4 hours to provide 1080 calories, 46 grams protein, and 1148 ml free water flush per day. Continue TF flushes every 4 hours throughout day. Continue regular diet with texture modifications per FOOD SERVICE ASSOCIATE. Ensure pudding with meals for additional maximiliano/pro if consumed. Lab / Micro Data Result Diagrams: 10/14/20 12:30 10/15/20 05:35 Labs: Laboratory Results - last 24 hr 10/14/20 12:30: WBC 11.1 H, RBC 4.04 L, Hgb 10.1 L, Hct 32.2 L, MCV 79.7 L, MCH 25.0 L, MCHC 31.4 L, RDW Std Deviation 46.5 H, RDW Coeff of Fermin 16.2 H, Plt Count 482 H, MPV 8.3, Immature Gran % (Auto) 0.500, Neut % (Auto) 79.5 H, Lymph % (Auto) 7.3 L, Jasper % (Auto) 10.3 H, Eos % (Auto) 1.8, Baso % (Auto) 0.6, Absolute Neuts (auto) 8.8 H, Absolute Lymphs (auto) 0.81 L, Nucleated RBC % 0 10/15/20 05:35: Sodium 136, Potassium 3.3 L, Chloride 100, Carbon Dioxide 30.0, Anion Gap 6, BUN 11, Creatinine 0.26 L, Estim Creat Clear Calc 41.76, Est GFR (MDRD) Af Amer 331, Est GFR (MDRD) Non-Af 273, BUN/Creatinine Ratio 41.7 H, Glucose 98, Calcium 8.2 L Micro: Microbiology 10/14/20 Unknown Fluid - Pleural (Lung) Gram Stain - Final 10/14/20 Unknown Fluid - Pleural (Lung) Body Fluid Culture - Preliminary No growth-Final to follow 10/12/20 16:58 Blood Culture (Wb) #2 - Anticubital Right Blood Culture - Preliminary No growth in 48 hours. 10/12/20 16:10 Blood Culture (Wb) - Right Wrist Blood Culture - Preliminary No growth in 48 hours. 10/12/20 16:34 Mucosa - Nose SARS-CoV-2 Antigen (Rapid) - Final Radiography Diagnostic Testing: Radiology Impression Chest X-Ray 10/15/20 08:15 IMPRESSION: Increased pleural effusions with increased bilateral atelectasis or pneumonia. at 0912 Reported and signed by: Brittny Atkinson MD Electronically Signed: Brittny Atkinson MD at 9:11 EDT Tel , Service support , Thoracentesis Ultrasound 10/15/20 10:09 IMPRESSION: Ultrasound-guided right thoracentesis. Electronically Signed: Gilles Severino MD at 12:32 EDT , Service support , Chest X-Ray 10/15/20 11:25 IMPRESSION: Status post right thoracentesis. There is no evidence of pneumothorax. Electronically Signed: Gilles Severino MD at 12:31 EDT , Service support , Physical Exam Const alert General Appearance: uncooperative Orientation / Consciousness: confused HEENT head/scalp atraumatic and moist oral mucous membranes Head and Scalp: normocephalic Eyes EOMs intact bilaterally and conjunctivae normal Neck no lymphadenopathy, supple and no JVD Resp normal respiratory effort, no retractions, no use of accessory muscles and clear to auscultation bilaterally Cardio regular rate, regular rhythm, no murmurs and no JVD GI normal to inspection, nondistended, normoactive bowel sounds, soft to palpation and non-tender Extremity normal to inspection, full ROM and no clubbing, cyanosis or edema Skin no rashes or lesions noted, no wounds, skin turgor normal and no jaundice Neuro CN's II-XII intact bilaterally Psych affect normal Assessment & Plan Assessment/Plan (1) Pleural effusion: (2) Right lower lobe lung mass: (3) Hemoptysis: PLAN: Day 4: See subjective. Discharge plan: Case management following, patient cannot return to [facility] without PRECERT, will need to reiniitate pre-cert on Thursday. 1) hypoxia secondary to right pleural effusion with possible postobstructive pneumonia Pulmonology following. Thoracentesis completed on 10/14 for right sided pleural effusion withdrew 1300cc of serosanguinous fluid. Additional thoracentesis for 10/15 ordered given morning chest x-ray. Etiology of pleural effusion could possibly be malignancy, side effect of Keytruda regimen or transudate secondary to CHF. Plan; thoracentesis as above, continue IV Levaquin for possible postobstructive pneumonia, O2 per protocol, will reinitiate anticoagulation if no additional thoracentesis indicated. 2) Hypernatremia Stable, currently 136. Continue to monitor BMP. 3) History of CVA with left hemiplegia Patient is a resident at [facility], however will need pre-CERT to reenter assisted as noted above. Patient is alert and oriented only to self, unaware of patient mentation at baseline. DVT prophylaxis ? SCDs, will reinitiate anticoagulation if no additional thoracentesis indicated. Patient seen by Fausto Scott PA-C, under the supervision of Dr. Deluna. Documented by User: Dr. Emile Deluna MD 10/15/20 13:22 Objective Data Lab / Micro Data Result Diagrams: 10/14/20 12:30 10/15/20 05:35 Assessment & Plan Addt'l Comments This patient was seen in conjunction with Fausto Scott PA-C. I have independently interviewed and examined the patient and reviewed pertinent historical, laboratory, and other data. Please refer to Fausto Scott PA-C's note for details of this patient's presentation, findings, and recommendations. I have reviewed Fausto Scott PA-C's note and concur with documented findings. In brief, patient is a 64-year-old lady with history of adenocarcinoma involving the right upper lobe, currently resident at an [facility] brought in with progressive shortness of breath patient was found to have significant hypoxia with bilateral pleural effusion admitted to monitored bed for subsequent management Physical Examination: GENERAL: Frail looking HEENT: Atraumatic; EYES; Anicteric, Normal Conjunctiva NECK; supple, normal thyroid, RESPIRATORY: Diminished to auscultation CARDIOVASCULAR: Regular S1 S2, GI: soft, normoactive bowel sounds, PSYCH; Flat affect Assessment: 1. Acute hypoxic respiratory insufficiency secondary to bilateral pleural effusion 2. History of CVA with residual left-sided hemiparesis 3. Adenocarcinoma involving the right upper lobe 4. Hyponatremia 5. Hypernatremia?Resolved 6. Hyponatremia ?Resolved 7. Physical debility 8. DVT prophylaxis Recommendations: 1. I have discussed the results of my overview and impressions with the patient 2. Options for management were reviewed Charges/Coding Visit Charges Inpatient E&M: 61262 Subs Hosp L2
--- NOTE | 2020-10-15 12:46 | CASEMGMT ---
Pt qualifies for palliative c/s per [facility] palliative screening tool and Erlin MULLINS is agreeable. Order placed and call to palliative to notify. Socorro ORTEGA CM
[2020-10-15] MEDS: Jevity 1.5. 1,000 ML Bottle 250 ML GT ×3 (15:06→22:29)
--- NOTE | 2020-10-15 15:58 | PCM.CONS.P ---
Assessment & Plan Assessment/Plan (1) Weakness: (2) Shortness of breath: (3) Primary adenocarcinoma of upper lobe of right lung: (4) Pleural effusion: (5) Depression: QUALIFIERS: Depression Type: unspecified Qualified Code(s): F32.9 - Major depressive disorder, single episode, unspecified (6) Postobstructive pneumonia: (7) Hypoxia: (8) Hypernatremia: (9) Hypertension: QUALIFIERS: Hypertension type: unspecified Qualified Code(s): I10 - Essential (primary) hypertension (10) Hemoptysis: (11) Right lower lobe lung mass: PLAN: 64-year-old female who presented with shortness of breath, history of lung cancer currently on immunotherapy, referred to palliative care for symptom management of shortness of breath and lung cancer, as well as generalized weakness. 1. Weakness: Improving with therapy but is chronic in nature due to CVA. Supportive care 2. Shortness of breath: Likely secondary to lung cancer and pleural effusion. She feels better after thoracentesis. Requiring 5 L of oxygen, typically not on supplementation. Would not initiate medications for air hunger at this point, however that would be a consideration in the future if her lung cancer/pleural effusions progress. 3. Adenocarcinoma right upper lung/postobstructive pneumonia/hypoxemia/hyponatremia/hypertension: Complicates overall care, management, recovery, and prognosis. She continues to follow with oncology and pulmonary. Palliative care would be supportive and augment current plan of care. Thank you for the opportunity to participate in this patient's care, please do not hesitate to contact [facility] with any further questions or concerns. Palliative direct line is [phone]. We will follow up after discharge and will discuss palliative services further at that time. We will have a liaison reach out to her daughter, Es and they can set up a time to discuss services and sign consents, if agreeable to services. Greater than 50% of F2F visit dedicated to education and counseling of palliative care services, medications, comorbid conditions and potential assistance with management, and plan of care moving forward. Start time: 1557 End time: 1657 HPI Consult Data Date of Consult: 10/15/20 HPI Narrative HPI Narrative: FLACO CONLEY, is a 64 F, PMH as below, who presented 10/12/2020 with a 2-day history of shortness of breath. She does have chronic left-sided hemiplegia due to her stroke as noted below, currently a resident at [facility]. She has been on Keytruda and is following with Dr. Resendez. She has been treated for hypernatremia and a right pleural effusion, likely malignant. Patient underwent a right-sided thoracentesis with a total removal of 1360 cc of fluid. She is being treated for possible postobstructive pneumonia. They are awaiting pleural fluid analysis/cytology. Patient noted to be chronically confused secondary to remote CVA. Her anticoagulation is on hold at this time in anticipation of possible repeat thoracentesis.Upon review of notes, she did have a repeat thoracentesis with 450 mL of fluid drained today. She had a repeat chest x-ray post right thoracentesis which showed no evidence of pneumothorax, there was evidence of inferior subluxation of the left shoulder joint. Patient was also in the ED with cough in March 2020. She was referred to Dr. Calles, pulmonary. They discovered a right lower lobe lung mass with hemoptysis and a nodule of the upper lobe of the right lung. She underwent bronchoscopy April 13. She was found to have primary adenocarcinoma of the upper lobe of the right lung. Biopsy results from the mediastinum are not significant for metastasis. She was referred to Dr. Resendez and had been undergoing chemotherapy. She was then readmitted to the hospital May 15- for hypoxia and postobstructive pneumonia. She then presented to the ED 07/10/2020 with strokelike symptoms and was life flighted to [facility] due to evidence of M2 and M3 occlusion with potential for endovascular care. Patient is currently on 5 to 6 L of oxygen per nasal cannula. She is saturating in the upper 90s. Blood pressures have been on the low side, last 99/59 with a heart rate of 96. She does get mildly tachycardic at times. Patient is able to communicate verbally, does have some slurred speech. She has a right gaze shift. Continues with left-sided hemiplegia, wearing a sleeve on the left arm. Denies any nausea or vomiting. No diarrhea or constipation. No abdominal pain. Does feel short of breath intermittently, improved since thoracentesis again today. Her breathing is somewhat labored, she is on 5 L of oxygen supplementation. No current shortness of breath. No chest pain. No numbness or tingling. She is nonambulatory but is able to stand with assistance. She is has been working very hard at [facility] in therapy and has shown some improvement. She is getting electrical stim to the left lower extremity, which has improved sensation. She is frustrated that it is 1 thing after another with her health. Depressed but not suicidal. [facility] Medical History Anxiety CVA (cerebral vascular accident) DVT (deep venous thrombosis) Former smoker Gastrostomy in place History of melanoma Hypertension Lung cancer No pertinent family history On home oxygen therapy Home Medications multivitamin with minerals 1 ea PO DAILY 04/10/20 [History Last Taken 10/12/20] cholecalciferol (vitamin D3) 2,000 unit FEEDING TUBE DAILY 07/10/20 [History Last Taken 10/12/20] fluticasone propionate 2 spray NASAL DAILY 07/10/20 [History Last Taken 10/12/20] acetaminophen [Tylenol Extra Strength] 1,000 mg PO Q6H PRN 10/12/20 [History Last Taken 09/30/20] atorvastatin 80 mg FEEDING TUBE QHS 10/12/20 [History Last Taken 10/11/20] carboxymethylcellulose sodium [Refresh Tears] 1 drp EACH EYE BID 10/12/20 [History Last Taken 10/12/20] citalopram 20 mg FEEDING TUBE DAILY 10/12/20 [History Last Taken 10/12/20] enoxaparin 70 mg SUBCUT BID 10/12/20 [History Last Taken 10/12/20] esomeprazole magnesium 40 mg PO DAILY 10/12/20 [History Last Taken 10/12/20] lactose-reduced food with fibr [Isosource 1.5 Sumit] See Rx Instructions .ROUTE .COMPLEX 10/12/20 [History Last Taken 10/11/20] levalbuterol HCl 0.63 mg INHALATION Q4H PRN 10/12/20 [History Last Taken 10/11/20] levetiracetam [Keppra] 750 mg FEEDING TUBE Q12H 10/12/20 [History Last Taken 10/12/20] losartan 12.5 mg FEEDING TUBE DAILY 10/12/20 [History Last Taken 10/12/20] melatonin 6 mg FEEDING TUBE DAILY@1800 10/12/20 [History Last Taken 10/11/20] morphine concentrate [Roxanol Concentrate] 4 mg PO Q4H PRN 10/12/20 [History Last Taken 10/12/20] nystatin [Nystop] 1 applic TOPICAL TID 10/12/20 [History Last Taken 10/12/20] prazosin 1 mg FEEDING TUBE QHS 10/12/20 [History Last Taken 10/11/20] Allergy/AdvReac Type Severity Reaction Status Date / Time albuterol AdvReac Other Verified 10/12/20 16:05 lisinopril AdvReac COUGHING Verified 10/12/20 16:05 Family History Other No pertinent family history Surgical History No pertinent past surgical history Social History Smoking Status: Former smoker substance use type: does not use ROS ROS Narrative Review of systems otherwise negative from a constitutional, HEENT, respiratory, cardiovascular, GI, genitourinary, musculoskeletal, skin, neurologic, psychiatric and hematologic system unless stated above. Physical Exam Const alert, oriented x3 and no apparent distress General Appearance: cooperative HEENT normocephalic and head/scalp atraumatic Eyes Eyes Narrative: Right-sided gaze Neck supple General: trachea midline, lymphadenopathy anterior cervical soft and tender and submandibular swelling Resp normal respiratory effort and no use of accessory muscles Effort and Inspection: able to speak in complete sentences and symmetric chest movement Auscultation: diminished lung sounds Cardio regular rate, regular rhythm, S1 normal heart sound and S2 normal heart sound GI normal to inspection, nondistended, normoactive bowel sounds Extremity no clubbing, cyanosis or edema Extremity Narrative: Tattoo right foot, some foot drop noted. Skin no rashes or lesions noted Neuro Neuro Narrative: Left-sided hemiplegia Psych cooperative Psych Narrative: Mildly slurred speech Memory / Cognition: cognition impaired
[2020-10-15] MEDS: Doxazosin 1 MG Tablet GT (20:30)
[2020-10-15] MEDS: Atorvastatin Calcium 80 MG Tablet GT (20:30)
[2020-10-15] MEDS: MELATONIN 3 MG TABLET 6 MG GT (20:30)
[2020-10-16] VITALS (18 sets, daily range): BP systolic 91–124; BP diastolic 54–82; PULSE 92–105; RESP 18–24; TEMP 36.1–36.6; O2SAT 89–96
[2020-10-16] MEDS: Nystatin Powder 15gm Bottle 1 APPLIC TOPICAL ×3 (05:21→21:15)
[2020-10-16 06:23] LABS: Absolute Lymphocyte Count 0.75 X10^3/uL (0.83-4.51); Absolute Neutrophil Count 7.6 X10^3/uL (2.0-7.7); Basophil# 0.05 X10^3/uL; Basophil% 0.5 % (0-1); Eosinophil# 0.24 X10^3/uL; Eosinophils% 2.5 % (0-5); Hematocrit 29.3 % (37-47); Hemoglobin 9.4 g/dL (12.0-15.0); Lymphocyte # 0.75 X10^3/ul (0.83-4.51); Lymphocyte % 7.7 % (19-41); Mean Corp Hgb Conc 32.1 g/dL (32-36); Mean Corpuscular Hgb 25.3 pg (27.0-32.0); Mean Corpuscular Volume 78.8 fL (81-99); Mean Platelet Vol. 8.5 fl (6.2-12.0); Monocyte# 0.99 X10^3/uL; Monocyte% 10.2 % (0-10); NRBC Flagged by Analyzer 0 % (0-5); Neutrophil # 7.59 X10^3/uL (2.7-7.7); Neutrophil % 78.4 % (47-70); Platelet Count 335 K/mm3 (150-450); RBC Distribution Width CV 16.5 % (11.6-14.6); Red Blood Count 3.72 M/mm3 (4.2-5.4); White Blood Count 9.7 K/mm3 (4.4-11.0)
[2020-10-16] MEDS: Ipratropium 0.5 MG/2.5 ML SOLUTION INHALATION ×3 (07:05→19:11)
--- NOTE | 2020-10-16 07:08 | CPS ---
Upon entering the room O2 was off SPO2 was 85% O2 placed back into nose.
[2020-10-16] MEDS: 0.9% Normal Saline 1,000 ML 100 ML IV ×2 (07:55→18:40)
[2020-10-16 08:00] LABS: Anion Gap 7 (5-15); BUN 11 mg/dL (7-18); BUN/Creat Ratio 38.5 RATIO (10-20); Calcium,Total 7.9 mg/dL (8.5-10.1); Chloride 102 mmol/L (98-107); Creatinine, Serum 0.29 mg/dL (0.55-1.02); EST Glomerular Filtration Rate 249 mL/min (>60); Est Glom Filt Rate - Afr Amer 302 mL/min (>60); Estimated Creatinine Clearance 41.76 ml/min; Glucose 115 mg/dL (74-106); Potassium 2.8 mmol/L (3.5-5.1); Sodium Level 136 mmol/L (136-145)
[2020-10-16] MEDS: Glycerin/Hypromellose/PEG400 15 ml Bottle 1 DRP EACH EYE ×2 (08:43→21:14)
[2020-10-16] MEDS: Nystatin Ointment 1 APPLIC TOPICAL ×2 (08:44→21:15)
[2020-10-16] MEDS: Lansoprazole 15 MG Capsule.DR 30 MG GT (08:44)
[2020-10-16] MEDS: Cholecalciferol (VIT D3) 25 MCG TABLET (1,000 UNITS) 50 MCG GT (08:44)
[2020-10-16] MEDS: Citalopram 20 MG Tablet GT (08:44)
[2020-10-16] MEDS: Losartan Potassium 25 MG Tablet 12.5 MG GT (08:46)
[2020-10-16] MEDS: Fluticasone 0.05% 1 SPRAY NASAL.SRY 2 SPRAY NASAL (08:46)
[2020-10-16] MEDS: levETIRAcetam Oral Solution 500 MG/5 ML 750 MG GT ×2 (08:46→21:16)
[2020-10-16] MEDS: Menthol/Lanolin/Calamine/Znox 113 GM Tube 1 APPLIC TOPICAL ×2 (08:52→21:42)
[2020-10-16] MEDS: levoFLOXacin IV 750 MG/150 ML BAG 100 MG IV (10:21)
--- NOTE | 2020-10-16 10:32 | CASEMGMT ---
LIZ received a voice mail from Leigh at [facility]. LIZ called her back. She said that they are not going to have a bed for patient as family did not choose to hold her bed. LIZ called patient's , yahir self. LIZ let him know about [facility] not having a bed for patient since they chose not to hold her bed. He said no one ever asked him. LIZ went over the facilities that are in network and he asked to have a referral sent to [facility]. LIZ told him to think of another choice in the event [facility] cannot take him. LIZ told him SW will be in touch with him when SW knows more. LIZ then received a call from patient's daughter, Es. She said [facility] said they will have a bed on the . LIZ told her patient is ready now and if we would get a pre-cert back before the she would be stuck here when she is medically ready. She was very upset that her mom will have to be moved to yet another facility. LIZ told her that her dad told SW to try [facility]. LIZ let her know SW faxed that referral, but have not heard back yet. LIZ asked about patient's cancer treatment. She said she was just started on Keytruda and immunotherapy drug. She goes to Dr Resendez's office for this. LIZ apologized, but LIZ will keep in touch with her. She asked that SW contact her. Bharati GODFREY
--- NOTE | 2020-10-16 11:08 | CASEMGMT ---
LIZ faxed a referral to [facility]. LIZ also called [facility] and spoke with Miriam regarding the referral. Await their response. Bharati Chance [employer]
[2020-10-16] MEDS: Jevity 1.5. 1,000 ML Bottle 250 ML GT ×4 (11:09→21:18)
--- NOTE | 2020-10-16 12:37 | PCM.PN.HOSP ---
Documented by User: Fausto MULLINS 10/16/20 12:46 Subjective Subjective Patient is a 64-year-old female comfortably resting alert to self. Patient unable to provide much insight into her current condition as she is recovering from a past CVA. Objective Data Objective Data Vital Signs: Vital Signs Temp Pulse Resp BP Pulse Ox 97.9 F 95 18 98/54 L 89 10/16/20 11:06 10/16/20 11:06 10/16/20 11:06 10/16/20 11:06 10/16/20 11:59 Oxygen Flow Rate (L/min) [2] 6 Oxygen Flow Rate (L/min) [1 ( 6 Initial Baseline)] Oxygen Flow Rate (L/min) 5 Oxygen Delivery Method [2] Nasal Cannula Oxygen Delivery Method [1 ( Nasal Cannula Initial Baseline)] Oxygen Delivery Method Nasal Cannula Weight: 136 lb 14.513 oz Body Mass Index (BMI) 25.8 Intake & Output: Intake and Output for Last 24 Hours 10/14/20 10/15/20 10/16/20 23:59 23:59 23:59 Intake Total 550 / 550 2550.00 / 2550.00 1348.33 / 1348.33 Output Total 1610 / 1610 850 / 850 Balance -1060 / -1060 1700.00 / 1700.00 1348.33 / 1348.33 Medical Nutrition Assessment Dietitian: Nutrition Therapy Diagnosis Start: 10/13/20 11:41 Freq: Status: Active Protocol: Document 10/16/20 12:13 AG (Rec: 10/16/20 12:13 AG [id number]) Nutrition Malnutrition Evidence of Malnutrition Exists No Intake Problem Inadequate Oral Intake Etiology related to chewing/swallowing difficulty from CVA Signs/Symptoms as evidenced by pt unable to meet estimated nutrition needs with PO intake, consuming less than 25% of meals served Status Active Problem Recommendation Dietitian Recommendations/Changes 1) Continue Jevity 1.5 250mL bolus via PEG 4 times per day with 100mL water flush before and after each bolus feed to provide 1500 calories, 63.8 g protein and 1560 mL free water per day. As ordered, enteral nutrition meets >75% of estimated nutritional needs. 2) Regular diet, textures/ consistency modification per POOL SERVICER. Continue Ensure Pudding BID for additional protein/ calories if consumed. 3) Daily wts. Lab / Micro Data Result Diagrams: 10/16/20 05:20 10/16/20 05:20 Labs: Laboratory Results - last 24 hr 10/15/20 05:35: B-Natriuretic Peptide 22.0 10/16/20 05:20: WBC 9.7, RBC 3.72 L, Hgb 9.4 L, Hct 29.3 L, MCV 78.8 L, MCH 25.3 L, MCHC 32.1, RDW Std Deviation 47.0 H, RDW Coeff of Fermin 16.5 H, Plt Count 335, MPV 8.5, Immature Gran % (Auto) 0.700, Neut % (Auto) 78.4 H, Lymph % (Auto) 7.7 L, [place] % (Auto) 10.2 H, Eos % (Auto) 2.5, Baso % (Auto) 0.5, Absolute Neuts (auto) 7.6, Absolute Lymphs (auto) 0.75 L, Nucleated RBC % 0 10/16/20 05:20: Sodium 136, Potassium 2.8 L, Chloride 102, Carbon Dioxide 27.0, Anion Gap 7, BUN 11, Creatinine 0.29 L, Estim Creat Clear Calc 41.76, Est GFR (MDRD) Af Amer 302, Est GFR (MDRD) Non-Af 249, BUN/Creatinine Ratio 38.5 H, Glucose 115 H, Calcium 7.9 L Micro: Microbiology 10/14/20 Unknown Fluid - Pleural (Lung) Gram Stain - Final 10/14/20 Unknown Fluid - Pleural (Lung) Body Fluid Culture - Preliminary No growth-Final to follow 10/14/20 Unknown Fluid - Pleural (Lung) Anaerobic Culture - Preliminary No growth in 48 hours. 10/12/20 16:58 Blood Culture (Wb) #2 - Anticubital Right Blood Culture - Preliminary No growth in 48 hours. 10/12/20 16:10 Blood Culture (Wb) - Right Wrist Blood Culture - Preliminary No growth in 48 hours. 10/12/20 16:34 Mucosa - Nose SARS-CoV-2 Antigen (Rapid) - Final Physical Exam Const alert Orientation / Consciousness: confused and disoriented Exam Limitations: altered mental status HEENT head/scalp atraumatic, moist oral mucous membranes and oropharynx normal Head and Scalp: normocephalic Eyes EOMs intact bilaterally and conjunctivae normal Neck no lymphadenopathy, supple and no JVD Resp normal respiratory effort, no retractions and no use of accessory muscles Cardio regular rate, regular rhythm, no murmurs and no JVD GI normal to inspection, nondistended, normoactive bowel sounds, soft to palpation and non-tender Extremity normal to inspection, full ROM and no clubbing, cyanosis or edema Skin no rashes or lesions noted, no wounds and skin turgor normal Neuro Sensorium / Orientation: awake and alert Psych affect normal Assessment & Plan Assessment/Plan (1) Shortness of breath: (2) Weakness: (3) Pleural effusion: (4) Right lower lobe lung mass: PLAN: Day 5: See subjective. Discharge plan: CM/SW following, patient can return to [place], attempting to obtain acceptance/pre-CERT from [facility]. 1) hypoxia secondary to right pleural effusion with possible postobstructive pneumonia Currently satting at 89% at 5 L via nasal cannula. pulmonology following. Patient has had 2 thoracentesis, that have drawn about 1800 cc of fluid. Etiology of pleural effusion could possibly be malignancy, side effect of Keytruda regimen or transudate secondary to CHF. Plan; obtain PA and lateral chest x-ray to assess pleural effusion, fluid from thoracentesis sent for cytology. 2) Hypernatremia Stable, currently 136. Continue to monitor BMP. 3) History of CVA with left hemiplegia Patient is a resident at [facility], however will need pre-CERT to reenter fdc as noted above. Patient is alert and oriented only to self, unaware of patient mentation at baseline. 4) hypokalemia Plan; potassium chloride full bolus ordered, continue to monitor BMP. DVT prophylaxis ? SCDs, will reinitiate anticoagulation if no additional thoracentesis indicated. Patient seen by Fausto Scott PA-C, under the supervision of Dr. Deluna. Documented by User: Dr. Emile Deluna MD 10/16/20 13:26 Objective Data Lab / Micro Data Result Diagrams: 10/16/20 05:20 10/16/20 05:20 Assessment & Plan Addt'l Comments This patient was seen in conjunction with Fausto Scott PA-C. I have independently interviewed and examined the patient and reviewed pertinent historical, laboratory, and other data. Please refer to Fausto Scott PA-C's note for details of this patient's presentation, findings, and recommendations. I have reviewed Fausto Scott PA-C's note and concur with documented findings. In brief, patient is a 64-year-old lady with history of adenocarcinoma involving the right upper lobe, currently resident at an ECF brought in with progressive shortness of breath patient was found to have significant hypoxia with bilateral pleural effusion admitted to monitored bed for subsequent management 10/16/2020; patient seen awaiting insurance precertification prior to DC to ECF. She underwent ultrasound-guided thoracocentesis the day prior Physical Examination: GENERAL: Frail looking HEENT: Atraumatic; EYES; Anicteric, Normal Conjunctiva NECK; supple, normal thyroid, RESPIRATORY: Diminished to auscultation CARDIOVASCULAR: Regular S1 S2, GI: soft, normoactive bowel sounds, PSYCH; Flat affect Assessment: 1. Acute hypoxic respiratory insufficiency secondary to bilateral pleural effusion 2. History of CVA with residual left-sided hemiparesis 3. Adenocarcinoma involving the right upper lobe 4. Hyponatremia 5. Hypernatremia?Resolved 6. Hyponatremia ?Resolved 7. Physical debility 8. DVT prophylaxis Recommendations: 1. I have discussed the results of my overview and impressions with the patient 2. Options for management were reviewed Charges/Coding Visit Charges Inpatient E&M: 07071 Subs Hosp L2
--- NOTE | 2020-10-16 12:45 | RAD_ITS ---
STUDY: X-RAY CHEST REASON FOR EXAM: Female, 64 years old. Pleural effusion. TECHNIQUE: PA and lateral views of the chest. COMPARISON: 10/15/2020. FINDINGS: There are small bilateral pleural effusions. Fluid is seen in the right oblique fissure. There is mild atelectatic changes. The findings are stable. No pneumothorax. Normal size heart. There is no change in the mediastinum, rola, pulmonary arteries or aorta. No osseous changes. There is no demonstrated abnormality of the visualized soft tissue structures of the upper abdomen. RAD/Chest PA and Lateral IMPRESSION: No interval change. Electronically Signed: Dunacn Gomez DO at 16:48 EDT Tel [phone], Service support ,
[2020-10-16] MEDS: Potassium Chloride 10mEq/100mL 10 MEQ/100 ML IV.SOLN. 100 MEQ IV BOLUS ×4 (13:05→16:25)
[2020-10-16] MEDS: 0.9% Saline Lock 10 ML Syringe IV (13:06)
--- NOTE | 2020-10-16 15:44 | CASEMGMT ---
SW called [facility] and left a message regarding the referral. Bharati Chance REVIEW ANALYST EMERGENCY DEPARTMENT MANAGER
--- NOTE | 2020-10-16 15:58 | CASEMGMT ---
LIZ spoke with Linda at [facility] and she asked SW a couple of questions for the clinical team. LIZ will check back in the am. Bharati GODFREY
--- NOTE | 2020-10-16 16:03 | CASEMGMT ---
LIZ called patient's daughter and updated her on the situation. Bharati Chance APARTMENT MAINTENANCE WORKER EPIFANIO
[2020-10-16] MEDS: Acetaminophen 325 MG Tablet 650 MG PO (17:02)
[2020-10-16] MEDS: MELATONIN 3 MG TABLET 6 MG GT (21:16)
[2020-10-16] MEDS: Doxazosin 1 MG Tablet GT (21:18)
[2020-10-16] MEDS: Atorvastatin Calcium 80 MG Tablet GT (21:18)
--- NOTE | 2020-10-16 23:05 | CPS ---
PT refused AVAPS for the night.
[2020-10-17] VITALS (16 sets, daily range): BP systolic 111–127; BP diastolic 70–84; PULSE 65–99; RESP 14–28; TEMP 36.2–36.8; O2SAT 89–100
[2020-10-17] MEDS: 0.9% Normal Saline 1,000 ML 100 ML IV (04:26)
[2020-10-17] MEDS: Nystatin Powder 15gm Bottle 1 APPLIC TOPICAL ×3 (05:01→20:43)
[2020-10-17] MEDS: Ipratropium 0.5 MG/2.5 ML SOLUTION INHALATION ×4 (07:08→22:20)
[2020-10-17] MEDS: Glycerin/Hypromellose/PEG400 15 ml Bottle 1 DRP EACH EYE ×2 (09:33→20:41)
[2020-10-17] MEDS: Menthol/Lanolin/Calamine/Znox 113 GM Tube 1 APPLIC TOPICAL ×2 (09:33→20:33)
[2020-10-17 09:34] LABS: Anion Gap 6 (5-15); BUN 6 mg/dL (7-18); Calcium,Total 7.9 mg/dL (8.5-10.1); Chloride 106 mmol/L (98-107); Creatinine, Serum 0.23 mg/dL (0.55-1.02); EST Glomerular Filtration Rate 319 mL/min (>60); Est Glom Filt Rate - Afr Amer 386 mL/min (>60); Estimated Creatinine Clearance 41.76 ml/min; Glucose 122 mg/dL (74-106); Potassium 2.9 mmol/L (3.5-5.1); Sodium Level 138 mmol/L (136-145)
[2020-10-17] MEDS: Losartan Potassium 25 MG Tablet 12.5 MG GT (09:34)
[2020-10-17] MEDS: Citalopram 20 MG Tablet GT (09:34)
[2020-10-17] MEDS: Jevity 1.5. 1,000 ML Bottle 250 ML GT ×3 (09:35→18:18)
[2020-10-17] MEDS: Fluticasone 0.05% 1 SPRAY NASAL.SRY 2 SPRAY NASAL (09:35)
[2020-10-17] MEDS: Lansoprazole 15 MG Capsule.DR 30 MG GT (09:36)
[2020-10-17] MEDS: levETIRAcetam Oral Solution 500 MG/5 ML 750 MG GT ×2 (09:36→20:41)
[2020-10-17] MEDS: Nystatin Ointment 1 APPLIC TOPICAL (09:37)
[2020-10-17] MEDS: Cholecalciferol (VIT D3) 25 MCG TABLET (1,000 UNITS) 50 MCG GT (09:38)
--- NOTE | 2020-10-17 09:50 | PCM.PN.INT ---
Assessment & Plan Assessment/Plan (1) Pleural effusion: PLAN: RECOMMENDATIONS: 1. Continue empiric antimicrobials to complete 7-day treatment course. 2. Await pleural fluid cytology results. 3. Aggressive potassium repletion. 4. Check magnesium level. 5. Stop continuous IV fluids. 6. Encourage incentive spirometer use while in bed. IMPRESSIONS: 1. Acute hypoxemic respiratory failure secondary to right pleural effusion and possible postobstructive pneumonia The patient has a known history of non-small cell lung cancer of the right lower lobe and a sizable right-sided effusion noted on chest imaging. There is also concern for possible postobstructive pneumonia. The patient has been through two separate thoracenteses procedures at this time. Per traditional Light's criteria, if at least one of the following three is fulfilled, the fluid would be considered an exudate: 1. Pleural fluid protein/serum protein ratio greater than 0.5 2. Pleural fluid LDH/serum LDH ratio greater than 0.6 3. Pleural fluid LDH greater than two thirds the upper limits of the laboratories normal serum LDH Based upon my review of the patient's pleural fluid analysis, along with serum LDH and total protein levels, the pleural fluid would be considered exudative in nature. There is some concern that the patient's effusion could represent a malignant process. In addition, infection would also be a consideration. However, the patient's pleural fluid cultures have not demonstrated any growth to date. Despite this, the patient will be continued on antimicrobials to complete a 7-day treatment course. Plan to continue to wean supplemental oxygen to maintain saturations at or above 90%. Await pleural fluid cytology results. Stop continuous IV fluids as the patient is now overall net positive from a volume perspective. 2. Lung adenocarcinoma/recent CVA/history of hemoptysis/depression/protracted recovery Complicates care, management, recovery and prognosis. Continue home medications as needed. This note was generated with [employer] dictation software. It may contain incorrect words, spelling, and punctuation that were not noted in checking the note before signing. Subjective Subjective The patient was seen and examined at the bedside this morning. Events from the last 24 hours have been reviewed. The patient is currently afebrile, hemodynamically stable and maintaining appropriate oxygen saturations on 5 L/min via nasal cannula. The patient is documented to be overall net +6.3 L for the hospital admission. Potassium is again low this morning at 2.9. Objective Data Objective Data The patient's most recent lab work, culture data and imaging studies have all been personally reviewed. Infectious work-up has been unrevealing to date. Vital Signs: Vital Signs Temp Pulse Resp BP Pulse Ox 97.2 F L 89 24 H 113/70 95 10/17/20 08:57 10/17/20 08:57 10/17/20 08:57 10/17/20 08:57 10/17/20 08:57 Oxygen Flow Rate (L/min) [2] 6 Oxygen Flow Rate (L/min) [1 ( 6 Initial Baseline)] Oxygen Flow Rate (L/min) 5 Oxygen Delivery Method [2] Nasal Cannula Oxygen Delivery Method [1 ( Nasal Cannula Initial Baseline)] Oxygen Delivery Method Nasal Cannula Weight: 62.1 kg Body Mass Index (BMI) 25.8 Intake & Output: Intake and Output for Last 24 Hours 10/15/20 10/16/20 10/17/20 23:59 23:59 23:59 Intake Total 2550.00 / 2550.00 3588.33 / 4028.33 1416.67 / 1416.67 Output Total 850 / 850 450 / 450 Balance 1700.00 / 1700.00 3588.33 / 4028.33 966.67 / 966.67 Medical Nutrition Assessment Dietitian: Nutrition Therapy Diagnosis Start: 10/13/20 11:41 Freq: Status: Active Protocol: Document 10/16/20 12:13 AG (Rec: 10/16/20 12:13 AG [id number]) Nutrition Malnutrition Evidence of Malnutrition Exists No Intake Problem Inadequate Oral Intake Etiology related to chewing/swallowing difficulty from CVA Signs/Symptoms as evidenced by pt unable to meet estimated nutrition needs with PO intake, consuming less than 25% of meals served Status Active Problem Recommendation Dietitian Recommendations/Changes 1) Continue Jevity 1.5 250mL bolus via PEG 4 times per day with 100mL water flush before and after each bolus feed to provide 1500 calories, 63.8 g protein and 1560 mL free water per day. As ordered, enteral nutrition meets >75% of estimated nutritional needs. 2) Regular diet, textures/ consistency modification per BRICK MASON. Continue Ensure Pudding BID for additional protein/ calories if consumed. 3) Daily wts. Lab / Micro Data Attestation: I reviewed the patient's lab results. Result Diagrams: 10/16/20 05:20 10/17/20 09:10 Labs: Laboratory Results - last 24 hr 10/17/20 09:10: Sodium 138, Potassium 2.9 L, Chloride 106, Carbon Dioxide 26.0, Anion Gap 6, BUN 6 L, Creatinine 0.23 L, Estim Creat Clear Calc 41.76, Est GFR (MDRD) Af Amer 386, Est GFR (MDRD) Non-Af 319, BUN/Creatinine Ratio 26.0 H, Glucose 122 H, Calcium 7.9 L Micro: Microbiology 10/14/20 Unknown Fluid - Pleural (Lung) Gram Stain - Final 10/14/20 Unknown Fluid - Pleural (Lung) Body Fluid Culture - Preliminary No growth-Final to follow 10/14/20 Unknown Fluid - Pleural (Lung) Anaerobic Culture - Final No growth in 5 days. 10/12/20 16:58 Blood Culture (Wb) #2 - Anticubital Right Blood Culture - Preliminary No growth in 48 hours. 10/12/20 16:10 Blood Culture (Wb) - Right Wrist Blood Culture - Preliminary No growth in 48 hours. 10/12/20 16:34 Mucosa - Nose SARS-CoV-2 Antigen (Rapid) - Final Radiography Diagnostic Testing: Radiology Impression Chest X-Ray 10/16/20 12:45 IMPRESSION: No interval change. Electronically Signed: Duncan DO Patricia at 16:48 EDT Tel [phone], Service support , Physical Exam Const alert and no apparent distress General Appearance: cooperative HEENT normocephalic and head/scalp atraumatic Eyes PERRL, EOMs intact bilaterally and conjunctivae normal Neck supple General: trachea midline Resp normal respiratory effort Auscultation: diminished lung sounds Cardio regular rate and regular rhythm GI normal to inspection, nondistended, normoactive bowel sounds Extremity no clubbing, cyanosis or edema Skin no rashes or lesions noted Neuro oriented x3 and CN's II-XII intact bilaterally Psych Mood & Affect: flat affect Charges/Coding Visit Charges Inpatient E&M: 86138 Subs Hosp L2
--- NOTE | 2020-10-17 10:06 | CASEMGMT ---
LIZ spoke with physician and patient does not need a bipap. LIZ called Linda at [facility] and let her know patient does not need a bipap or cpap. SW let her know she is getting a modified barium swallow today. She would like those results when done. LIZ asked if they are able to take patient or have they not decided. She said they are leaning toward yes, but her manager investigations is n a meeting. She will update him with the info LIZ just told her and let LIZ know. Bharati Chance METAL DRILL PRESS OPERATOR EPIFANIO
[2020-10-17 10:13] LABS: Magnesium 1.6 mg/dL (1.6-2.6)
--- NOTE | 2020-10-17 11:14 | CASEMGMT ---
Addendum entered by Bharati Chance 10/17/20 11:39: LIZ received a copy of the 7000 from [facility]. Still waiting to see if [facility] can take patient and we still need a pre-cert. Bharati GODFREY Original Note: LIZ called [facility] and spoke with Luanne. LIZ asked her to please fax a copy of the 7000 or the PASRR. She will fax to LIZ. Bharati GODFREY
--- NOTE | 2020-10-17 13:10 | CASEMGMT ---
LIZ called Linda at [facility] and left her a voice mail inquiring if they have decided on whether or not they can take patient and if so can they start the pre-cert. Bharati Chance SCHEDULE CLERK EPIFANIO
--- NOTE | 2020-10-17 13:25 | CASEMGMT ---
LIZ received a voice mail from Linda at [facility] and they can take patient. She is also starting the pre-cert. LIZ spoke with patient's and daughter in the room and let them know that [facility] can take patient. LIZ explained we will just need to wait on insurance to approve her and this could take a day or two. LIZ did let them know that [facility] does have snf beds, but they cannot guarantee they will have a exterminator helper termite bed available for her when she is ready. They verbalized understanding. Plan; d/c to [facility] pending insurance approval. Bharati Chance IS ANALYST EPIFANIO
--- NOTE | 2020-10-17 14:38 | SP.MBSS_ITS ---
Modified Barium Swallow - Patient Information Study Date: 10/17/20 Study Time: 13:00 Direct Billable Minutes: 120 Total Minutes procedure & reportin Diagnosis: Postobstructive pneumonia (J18.9), Hypoxia (R09.02) Referring Physician: Emile Deluna Reason for Referral: Objectively assess swallow function and aspiration risk. Medical History: FLACO CONLEY, is a 64 F who presented to [facility] on with progressive shortness of breath ongoing for about 2 days. Patient has history of CVA with left-sided hemiplegia, resident in [facility]. She was noted to have progressive shortness of breath and staff was concerned for pneumonia. Patient has history of lung cancer. She was receiving chemotherapy, already seen therapy as well as immunotherapy prior to her stroke. She recently was resumed on Keytruda about a week ago. She follows with the [facility]. During hospitalization, pt treated for hypoxia and pneumonia. Pt seen by speech therapy. Pt was initially on minced and moist diet textures / honey thick liquids but has since been downgraded to puree textures / honey thick liquids with TOTAL FEED. Pt recommended for MBS study to further assess aspiration risk and provide recommendations for safest and least restrictive diet. PMH: Anxiety, CVA (cerebral vascular accident), Gastrostomy in place, History of melanoma, Hypertension, Lung cancer. Current Diet Ordered: Pureed textures / Honey thickened liquids Mental Status: Impaired - Patient unable to follow most simple commands during study. Respiratory Status: Oxygenating on 4L/M nasal cannula - 5L/M via nasal cannula - Study Findings Consistencies: Thin Liquid, [place] Thick Liquid, Honey Thick Liquid, Pudding, Cookie - Penetration-Aspiration Scale Penetration-Aspiration Scale: OBJECTIVE ASSESSMENT OF SWALLOW FUNCTION (QUANTITATIVE ? PER TRIAL): PENETRATION / ASPIRATION SCALE (CASTELLON): 1 = does not enter airway 2 = enters airway/above vocal folds/ejected 3 = enters airway/above vocal folds/not ejected 4 = enters airway/contacts vocal folds/ejected 5 = enters airway/contacts vocal folds/not ejected 6 = enters airway/below vocal folds/ejected 7 = enters airway/below vocal folds/not ejected despite effort 8 = enters airway/below vocal folds/no effort VIDEOFLOROSCOPIC SCALE SCORE (CASTELLON): Grade I = aspiration of material that has penetrated into the laryngeal vest ibule, intact cough reflex Grade II = aspiration < 10 % of the bolus, intact cough reflex Grade III = aspiration of < 10 % of the bolus, reduced cough reflex or aspiration of > 10 % of the bolus, intact cough reflex Grade IV = aspiration of > 10 % of the bolus, reduced cough reflex - Penetration-Aspiration Scale Score Thin Liquid via teaspoon Result: 2= enter airway/above vocal folds/ejected Thin Liquid via teaspoon Trial 2 Result: 2= enter airway/above vocal folds/ejected Thin Liquid via small single sip from cup Result: 3= enters airways/above vocal folds/not ejected Thin Liquid via single sip from straw Result: 2= enter airway/above vocal folds/ejected [place] Thick Liquid via small single sip from cup Result: 2= enter airway/above vocal folds/ejected Honey Thick Liquid via small single sip from cup Result: 1= does not enter airway Pudding Result: 1= does not enter airway Cookie Result: 1= does not enter airway Thin Liquid via single sip from straw Trial 2 Result: 2= enter airway/above vocal folds/ejected Thin Liquid via teaspoon Trial 3 Result: 2= enter airway/above vocal folds/ejected Thin Liquid via teaspoon Double swallow Result: 1= does not enter airway - Oral Phase Labial Seal: Escape progressing to mid-chin Tongue Control During Bolus Hold: Posterior escape of less than half of bolus Bolus Preparation/Mastication: Disorganized chewing/mashing with solid pieces of bolus unchewed - Anterior spillage of unchewed piece of cookie. Bolus Transport/Lingual Motion: Delayed initiation of tongue motion Oral Residue: Residue collection on oral structures - Pharyngeal Phase Initiation of Pharyngeal Swallow: Bolus head in pyriforms Soft Palate Elevation: No bolus between soft palate and pharyngeal wall Laryngeal Elevation: Partial superior movement thyroid cart/partial apprx aryt- epig petiole Anterior Hyoid Excursion: Partial anterior movement Epiglottic Movement: Partial inversion Laryngeal Vestibule Closure at Height of Swallow: Incomplete; narrow column of air/contrast in laryngeal vestibule Pharyngeal Stripping Wave: Present - complete Pharyngoesophageal Segment Opening: Complete distension and complete duration; no obstruction of flow Tongue Base Retraction: Narrow column of contrast between tongue base & post. pharyngeal wall Pharyngeal Residue: Trace residue within or on pharyngeal structures - Esophageal Phase Esophageal Clearance: Esophageal retention - Treatment Strategies Effects of treatment strategies attemped:: Decreased bolus size = Effective. Double swallow = Effective. - Diagnosis/Impression Diagnosis: Moderate oropharyngeal phase dysphagia (R13.12) Impression: The oral phase is marked by ineffective mastication of solid textures. The patient presented with anterior spillage of solid unchewed pieces of cookie bolus when presented 1/2 shortbread cookie coated in pudding. She also spoke while masticating. She has decreased bolus control evident by premature loss of nectar and thin liquid boluses resulting in suboptimal bolus placement in the pyriform sinuses upon swallow onset. The pharyngeal phase is primarily marked by decreased airway closure due to decreased anterior hyoid excursion and laryngeal elevation. The patient also has a delayed initiation of the pharyngeal swallow, most significantly observed with thin and nectar liquid trials. The pt also has decreased tongue base retraction, resulting in mild residues on the posterior tongue surface and vallecula, which improved with a second swallow. The patient presented with penetration of thin and nectar thick liquid trials above the vocal folds that fully ejected from the laryngeal vestibule. Penetration decreased with consumption of sips via tsp as compared to sips by cup and straw. At times, she independently utilizes a double swallow to clear mild oral and trace pharyngeal residues. - Recommendations Diet: Puree Textures, Honey-thick Liquids Compensatory Strategies: Small Bites, Small Sips, Slow Rate, Multiple Swallows - Encourage double swallows with bites/sips., Sitting upright, Remain sitting upright for 30 minutes after PO intake, Minimize/decrease distractions Supervision: Total Feed Recommend Repeat Modified Barium Swallow: TBD Need for Skilled Speech Therapy Services: Yes Comment: Will recommend the patient for continued dysphagia therapy to address deficits in oropharyngeal function of swallow. Would strongly consider implementation of modified [place] Free Water Protocol with sips of unthickened water consumed via teaspoon between meals after thorough oral care to promote hydration. Would also consider the patient for trials of thin liquids via single sips by tsp and cup with direct IMPACT HAMMER OPERATOR supervision and close monitoring of lung sounds and pulmonary status. Lastly, would consider the patient for oropharyngeal strengthening to improve lingual strength/coordination for bolus control, swallow onset, base of tongue retraction, and hyolaryngeal elevation and excursion. The patient would benefit from thorough education regarding diet recommendations and recommended compensatory strategies. Education Completed: 1. Described result of evaluation., 7. Pt requires further education on strategies & risks. - Status Active ST Patient: Active - Contact Information [facility] Speech Therapy:: Theresa Hui M.A., [facility]IMPACT HAMMER OPERATOR Speech Language Pathologist [address] [address] [email or web address] [phone]
--- NOTE | 2020-10-17 15:09 | PCM.PN.HOSP ---
Documented by User: Fausto MULLINS 10/17/20 15:30 Subjective Subjective Patient is a 64-year-old female comfortably resting in bed, alert to self. Patient mentation appears slightly improved from previous days as patient is able to answer questions appropriately, however still not oriented to place or time. Objective Data Objective Data Vital Signs: Vital Signs Temp Pulse Resp BP Pulse Ox 98.2 F 95 28 H 111/80 95 10/17/20 15:00 10/17/20 15:00 10/17/20 15:00 10/17/20 15:00 10/17/20 15:00 Oxygen Flow Rate (L/min) [2] 6 Oxygen Flow Rate (L/min) [1 ( 6 Initial Baseline)] Oxygen Flow Rate (L/min) 5 Oxygen Delivery Method [2] Nasal Cannula Oxygen Delivery Method [1 ( Nasal Cannula Initial Baseline)] Oxygen Delivery Method Nasal Cannula Weight: 136 lb 14.513 oz Body Mass Index (BMI) 25.8 Intake & Output: Intake and Output for Last 24 Hours 10/15/20 10/16/20 10/17/20 23:59 23:59 23:59 Intake Total 2550.00 / 2550.00 3588.33 / 4028.33 1866.67 / 1866.67 Output Total 850 / 850 450 / 450 Balance 1700.00 / 1700.00 3588.33 / 4028.33 1416.67 / 1416.67 Medical Nutrition Assessment Dietitian: Nutrition Therapy Diagnosis Start: 10/13/20 11:41 Freq: Status: Active Protocol: Document 10/17/20 11:37 AG (Rec: 10/17/20 11:37 [id number]) Nutrition Malnutrition Evidence of Malnutrition Exists No Intake Problem Inadequate Oral Intake Etiology related to chewing/swallowing difficulty from CVA Signs/Symptoms as evidenced by pt unable to meet estimated nutrition needs with PO intake, consuming less than 25% of meals served Status Active Problem Recommendation Dietitian Recommendations/Changes 1) Continue Jevity 1.5 250mL bolus via PEG 4 times per day with 100mL water flush before and after each bolus feed to provide 1500 calories, 63.8 g protein and 1560 mL free water per day. As ordered, enteral nutrition meets >75% of estimated nutritional needs. 2) Regular diet, textures/ consistency modification per AGENCY SALES DIRECTOR. Continue Ensure Pudding BID for additional protein/ calories if consumed. 3) Daily wts. Lab / Micro Data Result Diagrams: 10/16/20 05:20 10/17/20 09:10 Labs: Laboratory Results - last 24 hr 10/17/20 09:10: Sodium 138, Potassium 2.9 L, Chloride 106, Carbon Dioxide 26.0, Anion Gap 6, BUN 6 L, Creatinine 0.23 L, Estim Creat Clear Calc 41.76, Est GFR (MDRD) Af Amer 386, Est GFR (MDRD) Non-Af 319, BUN/Creatinine Ratio 26.0 H, Glucose 122 H, Calcium 7.9 L 10/17/20 09:10: Magnesium 1.6 Micro: Microbiology 10/14/20 Unknown Fluid - Pleural (Lung) Gram Stain - Final 10/14/20 Unknown Fluid - Pleural (Lung) Body Fluid Culture - Preliminary No growth-Final to follow 10/14/20 Unknown Fluid - Pleural (Lung) Anaerobic Culture - Final No growth in 5 days. 10/12/20 16:58 Blood Culture (Wb) #2 - Anticubital Right Blood Culture - Preliminary No growth in 48 hours. 10/12/20 16:10 Blood Culture (Wb) - Right Wrist Blood Culture - Preliminary No growth in 48 hours. 10/12/20 16:34 Mucosa - Nose SARS-CoV-2 Antigen (Rapid) - Final Radiography Diagnostic Testing: Radiology Impression Chest X-Ray 10/16/20 12:45 IMPRESSION: No interval change. Electronically Signed: Duncan Gomez DO at 16:48 EDT Tel [phone], Service support , Physical Exam Const alert Orientation / Consciousness: confused HEENT head/scalp atraumatic and moist oral mucous membranes Head and Scalp: normocephalic Eyes EOMs intact bilaterally and conjunctivae normal Eyes Narrative: Exophthalmos bilaterally. Neck no lymphadenopathy, supple and no JVD Resp Effort and Inspection: tachypneic and labored Cardio regular rate, regular rhythm, no murmurs and no JVD GI normal to inspection, nondistended, normoactive bowel sounds, soft to palpation and non-tender Extremity normal to inspection, full ROM and no clubbing, cyanosis or edema Skin no rashes or lesions noted, no wounds, skin turgor normal and no jaundice Neuro CN's II-XII intact bilaterally Psych affect normal Assessment & Plan Assessment/Plan (1) Shortness of breath: (2) Weakness: (3) Pleural effusion: (4) Right lower lobe lung mass: PLAN: Day 6: See subjective. Discharge plan: Awaiting pre-CERT from [facility]. 1) Hypoxia secondary to right pleural effusion with possible postobstructive pneumonia Currently satting at 95% on 5 L via nasal cannula. Patient has had 2 thoracentesis, that have collectively drawn about 1800 cc of fluid. Chest x-ray has demonstrated improvement of pleural effusions, relative to admission. Etiology of pleural effusion could possibly be malignancy, side effect of Keytruda regimen or transudate secondary to CHF. Pulmonology following, recommendations as follows. Plan; continue levofloxacin start (day 3 of 7), awaiting pleural fluid cytology results, encourage incentive spirometry. 2) hypokalemia Currently 2.9. Magnesium currently 1.6. Plan; replace potassium, magnesium infusion per health/safety job titles, continue to monitor BMP. 3) Hypernatremia Resolved. 4) History of CVA with left hemiplegia Patient is a resident at [facility], however will need pre-CERT to reenter long-term as noted above. Patient is alert and oriented only to self, unaware of patient mentation at baseline. DVT prophylaxis ? SCDs, will reinitiate anticoagulation if no additional thoracentesis indicated. Patient seen by Fausto Scott PA-C, under the supervision of Dr. Deluna. Documented by User: Dr. Emile Deluna MD 10/17/20 16:21 Objective Data Lab / Micro Data Result Diagrams: 10/16/20 05:20 10/17/20 09:10 Assessment & Plan Addt'l Comments This patient was seen in conjunction with Fausto Scott PA-C. I have independently interviewed and examined the patient and reviewed pertinent historical, laboratory, and other data. Please refer to Fausto Scott PA-C's note for details of this patient's presentation, findings, and recommendations. I have reviewed Fausto Scott PA-C's note and concur with documented findings. In brief, patient is a 64-year-old lady with history of adenocarcinoma involving the right upper lobe, currently resident at an ECF brought in with progressive shortness of breath patient was found to have significant hypoxia with bilateral pleural effusion admitted to monitored bed for subsequent management 10/16/2020; patient seen awaiting insurance precertification prior to DC to ECF. She underwent ultrasound-guided thoracocentesis the day prior 10/17/2020; chest x-ray shows improved aeration. Patient is scheduled to undergo modified barium swallow. Plan is for patient to be discharged to assisted facility once insurance precertification is obtained Physical Examination: GENERAL: Frail looking HEENT: Atraumatic; EYES; Anicteric, Normal Conjunctiva NECK; supple, normal thyroid, RESPIRATORY: Diminished to auscultation CARDIOVASCULAR: Regular S1 S2, GI: soft, normoactive bowel sounds, PSYCH; Flat affect Assessment: 1. Acute hypoxic respiratory insufficiency secondary to bilateral pleural effusion 2. History of CVA with residual left-sided hemiparesis 3. Adenocarcinoma involving the right upper lobe 4. Hyponatremia 5. Hypernatremia?Resolved 6. Hyponatremia ?Resolved 7. Physical debility 8. DVT prophylaxis Recommendations: 1. I have discussed the results of my overview and impressions with the patient 2. Options for management were reviewed Charges/Coding Visit Charges Inpatient E&M: 04870 [facility] Hosp L2
[2020-10-17] MEDS: Potassium Chloride 10mEq/100mL 10 MEQ/100 ML IV.SOLN. 100 MEQ IV BOLUS ×4 (15:20→19:41)
[2020-10-17] MEDS: 0.9% Saline Lock 10 ML Syringe IV (15:21)
--- NOTE | 2020-10-17 15:48 | CASEMGMT ---
LIZ faxed MBS results to [place]. Bharati Chance PRECISION OPTICS TECHNICIAN EXECUTIVE VICE PRESIDENT OF SALES
[2020-10-17] MEDS: Potassium Chloride Oral Tablet 20 MEQ 40 MEQ PO (18:18)
[2020-10-17] MEDS: Atorvastatin Calcium 80 MG Tablet GT (20:40)
[2020-10-17] MEDS: MELATONIN 3 MG TABLET 6 MG GT (20:41)
[2020-10-17] MEDS: Doxazosin 1 MG Tablet GT (20:41)
[2020-10-18] VITALS (20 sets, daily range): BP systolic 94–141; BP diastolic 63–94; PULSE 88–108; RESP 14–35; TEMP 36.6–37.2; O2SAT 94–99
[2020-10-18] MEDS: Nystatin Powder 15gm Bottle 1 APPLIC TOPICAL ×3 (04:43→22:31)
[2020-10-18 06:11] LABS: Absolute Lymphocyte Count 0.92 X10^3/uL (0.83-4.51); Absolute Neutrophil Count 7.9 X10^3/uL (2.0-7.7); Basophil# 0.07 X10^3/uL; Basophil% 0.7 % (0-1); Eosinophils% 4.8 % (0-5); Hematocrit 28.8 % (37-47); Hemoglobin 9.2 g/dL (12.0-15.0); Lymphocyte # 0.92 X10^3/ul (0.83-4.51); Lymphocyte % 8.8 % (19-41); Mean Corp Hgb Conc 31.9 g/dL (32-36); Mean Corpuscular Hgb 25.3 pg (27.0-32.0); Mean Corpuscular Volume 79.1 fL (81-99); Mean Platelet Vol. 8.6 fl (6.2-12.0); Monocyte% 9.5 % (0-10); NRBC Flagged by Analyzer 0 % (0-5); Neutrophil # 7.92 X10^3/uL (2.7-7.7); Neutrophil % 75.5 % (47-70); Platelet Count 297 K/mm3 (150-450); RBC Distribution Width CV 16.3 % (11.6-14.6); RBC Distribution Width SD 46.7 fl (35.1-43.9); Red Blood Count 3.64 M/mm3 (4.2-5.4); White Blood Count 10.5 K/mm3 (4.4-11.0)
[2020-10-18 06:44] LABS: Anion Gap 5 (5-15); BUN 6 mg/dL (7-18); BUN/Creat Ratio 21.2 RATIO (10-20); Calcium,Total 7.8 mg/dL (8.5-10.1); Chloride 103 mmol/L (98-107); Creatinine, Serum 0.28 mg/dL (0.55-1.02); EST Glomerular Filtration Rate 252 mL/min (>60); Est Glom Filt Rate - Afr Amer 305 mL/min (>60); Estimated Creatinine Clearance 41.76 ml/min; Glucose 101 mg/dL (74-106); Potassium 3.7 mmol/L (3.5-5.1); Sodium Level 136 mmol/L (136-145)
[2020-10-18] MEDS: Ipratropium 0.5 MG/2.5 ML SOLUTION INHALATION ×3 (07:14→19:03)
--- NOTE | 2020-10-18 09:17 | PCM.PN.INT ---
Assessment & Plan Assessment/Plan (1) Pleural effusion: PLAN: RECOMMENDATIONS: 1. Continue empiric antimicrobials to complete 7-day treatment course. 2. Wean supplemental oxygen to maintain saturations at or above 90%. 3. Encourage incentive spirometer use while in bed. IMPRESSIONS: 1. Acute hypoxemic respiratory failure secondary to right pleural effusion and possible postobstructive pneumonia The patient has a known history of non-small cell lung cancer of the right lower lobe and a sizable right-sided effusion noted on chest imaging. There is also concern for possible postobstructive pneumonia. The patient has been through two separate thoracenteses procedures at this time. Unfortunately, the patient's pleural fluid was positive for malignant cells. Plan to continue antimicrobials to complete treatment course. The patient's oncologist, Dr. Resendez, was updated on the results of her pleural fluid analysis. If oxygenation status remains an issue, diuretic therapy can be initiated, given that the patient is overall net positive from a volume perspective. 2. Lung adenocarcinoma/recent CVA/history of hemoptysis/depression/protracted recovery Complicates care, management, recovery and prognosis. Continue home medications as needed. CODE status: Discussed CODE status at length including difference between FULL code, DNR-CCA and DNR-CC status. Following discussions about the differences in these status, patient requested DNR-CCA/DNI CODE STATUS. Advanced Care Planning Face to Face Time: 12 minutes This note was generated with Office Max dictation software. It may contain incorrect words, spelling, and punctuation that were not noted in checking the note before signing. Subjective Subjective The patient was seen and examined at the bedside this morning. Events from the last 24 hours have been reviewed. The patient is currently afebrile, hemodynamically stable and maintaining appropriate oxygen saturations on 5 L/min via nasal cannula. The patient is documented to be overall net +10.5 L for the hospital admission. The patient appears anxious this afternoon. I did discuss the results of her thoracentesis including the fact that her pleural fluid came back positive for malignant cells. I also had a corrine discussion with the patient regarding CODE STATUS. The patient indicated to me that she would not want any form of resuscitative effort or to be intubated. Therefore, her CODE STATUS was updated to DNR CCA without intubation. I did also call and personally speak with her regarding the results of her thoracentesis and also confirmed with him her desire to be a DNR. Objective Data Objective Data The patient's most recent lab work, culture data and imaging studies have all been personally reviewed. Infectious work-up has been unrevealing to date. Vital Signs: Vital Signs Temp Pulse Resp BP Pulse Ox 97.8 F 92 18 95/63 96 10/18/20 06:09 10/18/20 07:03 10/18/20 06:09 10/18/20 06:09 10/18/20 08:52 Oxygen Flow Rate (L/min) [2] 6 Oxygen Flow Rate (L/min) [1 ( 6 Initial Baseline)] Oxygen Flow Rate (L/min) 35 Oxygen Delivery Method [2] Nasal Cannula Oxygen Delivery Method [1 ( Nasal Cannula Initial Baseline)] Oxygen Delivery Method Bi-pap Weight: 62.1 kg Body Mass Index (BMI) 25.8 Intake & Output: Intake and Output for Last 24 Hours 10/16/20 10/17/20 10/18/20 23:59 23:59 23:59 Intake Total 3588.33 / 4028.33 5400.67 / 5500.67 180 / 180 Output Total 450 / 450 Balance 3588.33 / 4028.33 4950.67 / 5050.67 180 / 180 Medical Nutrition Assessment Dietitian: Nutrition Therapy Diagnosis Start: 10/13/20 11:41 Freq: Status: Active Protocol: Document 10/17/20 11:37 AG (Rec: 10/17/20 11:37 [id number]) Nutrition Malnutrition Evidence of Malnutrition Exists No Intake Problem Inadequate Oral Intake Etiology related to chewing/swallowing difficulty from CVA Signs/Symptoms as evidenced by pt unable to meet estimated nutrition needs with PO intake, consuming less than 25% of meals served Status Active Problem Recommendation Dietitian Recommendations/Changes 1) Continue Jevity 1.5 250mL bolus via PEG 4 times per day with 100mL water flush before and after each bolus feed to provide 1500 calories, 63.8 g protein and 1560 mL free water per day. As ordered, enteral nutrition meets >75% of estimated nutritional needs. 2) Regular diet, textures/ consistency modification per PARTS PROCESSOR. Continue Ensure Pudding BID for additional protein/ calories if consumed. 3) Daily wts. Lab / Micro Data Attestation: I reviewed the patient's lab results. Result Diagrams: 10/18/20 05:50 10/18/20 05:50 Labs: Laboratory Results - last 24 hr 10/17/20 09:10: Sodium 138, Potassium 2.9 L, Chloride 106, Carbon Dioxide 26.0, Anion Gap 6, BUN 6 L, Creatinine 0.23 L, Estim Creat Clear Calc 41.76, Est GFR (MDRD) Af Amer 386, Est GFR (MDRD) Non-Af 319, BUN/Creatinine Ratio 26.0 H, Glucose 122 H, Calcium 7.9 L 10/17/20 09:10: Magnesium 1.6 10/18/20 05:50: WBC 10.5, RBC 3.64 L, Hgb 9.2 L, Hct 28.8 L, MCV 79.1 L, MCH 25.3 L, MCHC 31.9 L, RDW Std Deviation 46.7 H, RDW Coeff of Fermin 16.3 H, Plt Count 297, MPV 8.6, Immature Gran % (Auto) 0.700, Neut % (Auto) 75.5 H, Lymph % (Auto) 8.8 L, [place] % (Auto) 9.5, Eos % (Auto) 4.8, Baso % (Auto) 0.7, Absolute Neuts (auto) 7.9 H, Absolute Lymphs (auto) 0.92, Nucleated RBC % 0 10/18/20 05:50: Sodium 136, Potassium 3.7, Chloride 103, Carbon Dioxide 28.0, Anion Gap 5, BUN 6 L, Creatinine 0.28 L, Estim Creat Clear Calc 41.76, Est GFR (MDRD) Af Amer 305, Est GFR (MDRD) Non-Af 252, BUN/Creatinine Ratio 21.2 H, Glucose 101, Calcium 7.8 L Micro: Microbiology 10/14/20 Unknown Fluid - Pleural (Lung) Gram Stain - Final 10/14/20 Unknown Fluid - Pleural (Lung) Body Fluid Culture - Final Culture exhibits no growth. 10/14/20 Unknown Fluid - Pleural (Lung) Anaerobic Culture - Final No growth in 5 days. 10/12/20 16:58 Blood Culture (Wb) #2 - Anticubital Right Blood Culture - Preliminary No growth in 48 hours. 10/12/20 16:10 Blood Culture (Wb) - Right Wrist Blood Culture - Preliminary No growth in 48 hours. 10/12/20 16:34 Mucosa - Nose SARS-CoV-2 Antigen (Rapid) - Final Physical Exam Const alert and no apparent distress General Appearance: cooperative HEENT normocephalic and head/scalp atraumatic Eyes PERRL, EOMs intact bilaterally and conjunctivae normal Neck supple General: trachea midline Resp normal respiratory effort Auscultation: diminished lung sounds Cardio regular rate and regular rhythm GI normal to inspection, nondistended, normoactive bowel sounds Extremity no clubbing, cyanosis or edema Skin no rashes or lesions noted Neuro oriented x3 and CN's II-XII intact bilaterally Psych Mood & Affect: anxious Charges/Coding Visit Charges Inpatient E&M: 44645 Subs Hosp L2 Procedures Hospitalists Procedures: [id number] Advncd Care Plan 30 Min
--- NOTE | 2020-10-18 09:40 | CASEMGMT ---
LIZ received a call from Linda at [facility] and she said insurance is asking for updated therapy notes. LIZ faxed updated therapy notes to [facility]. Bharati Chance HARDWOOD FALLER EPIFANIO
[2020-10-18] MEDS: Glycerin/Hypromellose/PEG400 15 ml Bottle 1 DRP EACH EYE ×2 (10:25→22:28)
[2020-10-18] MEDS: Citalopram 20 MG Tablet GT (10:26)
[2020-10-18] MEDS: Cholecalciferol (VIT D3) 25 MCG TABLET (1,000 UNITS) 50 MCG GT (10:26)
[2020-10-18] MEDS: Lansoprazole 15 MG Capsule.DR 30 MG GT (10:26)
[2020-10-18] MEDS: Fluticasone 0.05% 1 SPRAY NASAL.SRY 2 SPRAY NASAL (10:26)
[2020-10-18] MEDS: Losartan Potassium 25 MG Tablet 12.5 MG GT (10:26)
[2020-10-18] MEDS: Menthol/Lanolin/Calamine/Znox 113 GM Tube 1 APPLIC TOPICAL ×2 (10:27→22:30)
[2020-10-18] MEDS: levETIRAcetam Oral Solution 500 MG/5 ML 750 MG GT ×2 (10:27→22:33)
--- NOTE | 2020-10-18 10:27 | CASEMGMT ---
LIZ noted that patient wore a bipap last night. SW faxed bipap settings to [facility]. LIZ also called Linda at [facility] and left her a voice mail letting her know that patient did wear bipap last night so it would probably be beneficial to have one on hand and settings were faxed. Bharati Chance PST SPECIALIST EPIFANIO
[2020-10-18] MEDS: levoFLOXacin IV 750 MG/150 ML BAG 100 MG IV (10:28)
[2020-10-18] MEDS: Jevity 1.5. 1,000 ML Bottle 250 ML GT ×4 (10:29→22:41)
[2020-10-18] MEDS: Nystatin Ointment 1 APPLIC TOPICAL (10:29)
--- NOTE | 2020-10-18 13:16 | PN.HOSP_ITS ---
Documented by User: Holly Myrick SEAT COVER MAKER, SEAT COVER MAKER-C 10/18/20 13:37 Subjective Subjective Patient seen and examined. On BiPAP. Patient minimally verbal during exam/conversation. Denies worsening shortness of breath. Denies other symptoms or complaints. Objective Data Objective Data Vital Signs: Vital Signs Temp Pulse Resp BP Pulse Ox 97.8 F 89 20 H 94/63 96 10/18/20 10:19 10/18/20 11:10 10/18/20 11:10 10/18/20 10:19 10/18/20 10:19 Oxygen Flow Rate (L/min) [2] 6 Oxygen Flow Rate (L/min) [1 ( 6 Initial Baseline)] Oxygen Flow Rate (L/min) 5 Oxygen Delivery Method [2] Nasal Cannula Oxygen Delivery Method [1 ( Nasal Cannula Initial Baseline)] Oxygen Delivery Method Nasal Cannula Weight: 136 lb 14.513 oz Body Mass Index (BMI) 25.8 Intake & Output: Intake and Output for Last 24 Hours 10/16/20 10/17/20 10/18/20 23:59 23:59 23:59 Intake Total 3588.33 / 4028.33 5400.67 / 5500.67 180 / 180 Output Total 450 / 450 Balance 3588.33 / 4028.33 4950.67 / 5050.67 180 / 180 Medical Nutrition Assessment Dietitian: Nutrition Therapy Diagnosis Start: 10/13/20 11:41 Freq: Status: Active Protocol: Document 10/17/20 11:37 AG (Rec: 10/17/20 11:37 [id number]) Nutrition Malnutrition Evidence of Malnutrition Exists No Intake Problem Inadequate Oral Intake Etiology related to chewing/swallowing difficulty from CVA Signs/Symptoms as evidenced by pt unable to meet estimated nutrition needs with PO intake, consuming less than 25% of meals served Status Active Problem Recommendation Dietitian Recommendations/Changes 1) Continue Jevity 1.5 250mL bolus via PEG 4 times per day with 100mL water flush before and after each bolus feed to provide 1500 calories, 63.8 g protein and 1560 mL free water per day. As ordered, enteral nutrition meets >75% of estimated nutritional needs. 2) Regular diet, textures/ consistency modification per PHYSICAL INTEGRATION PRACTITIONER. Continue Ensure Pudding BID for additional protein/ calories if consumed. 3) Daily wts. Lab / Micro Data Result Diagrams: 10/18/20 05:50 10/18/20 05:50 Labs: Laboratory Results - last 24 hr 10/18/20 05:50: WBC 10.5, RBC 3.64 L, Hgb 9.2 L, Hct 28.8 L, MCV 79.1 L, MCH 25.3 L, MCHC 31.9 L, RDW Std Deviation 46.7 H, RDW Coeff of Fermin 16.3 H, Plt Count 297, MPV 8.6, Immature Gran % (Auto) 0.700, Neut % (Auto) 75.5 H, Lymph % (Auto) 8.8 L, [place] % (Auto) 9.5, Eos % (Auto) 4.8, Baso % (Auto) 0.7, Absolute Neuts (auto) 7.9 H, Absolute Lymphs (auto) 0.92, Nucleated RBC % 0 10/18/20 05:50: Sodium 136, Potassium 3.7, Chloride 103, Carbon Dioxide 28.0, Anion Gap 5, BUN 6 L, Creatinine 0.28 L, Estim Creat Clear Calc 41.76, Est GFR (MDRD) Af Amer 305, Est GFR (MDRD) Non-Af 252, BUN/Creatinine Ratio 21.2 H, Glucose 101, Calcium 7.8 L Micro: Microbiology 10/14/20 Unknown Fluid - Pleural (Lung) Gram Stain - Final 10/14/20 Unknown Fluid - Pleural (Lung) Body Fluid Culture - Final Culture exhibits no growth. 10/14/20 Unknown Fluid - Pleural (Lung) Anaerobic Culture - Final No growth in 5 days. 10/12/20 16:58 Blood Culture (Wb) #2 - Anticubital Right Blood Culture - Preliminary No growth in 48 hours. 10/12/20 16:10 Blood Culture (Wb) - Right Wrist Blood Culture - Preliminary No growth in 48 hours. 10/12/20 16:34 Mucosa - Nose SARS-CoV-2 Antigen (Rapid) - Final Physical Exam Const no apparent distress Orientation / Consciousness: awake HEENT normocephalic Mouth: dry mucous membranes Eyes PERRL, EOMs intact bilaterally and conjunctivae normal Neck no lymphadenopathy Resp clear to auscultation bilaterally Auscultation: diminished lung sounds Cardio regular rate, regular rhythm and no murmurs Peripheral Pulses: pulses 2+ throughout GI normal to inspection, nondistended, normoactive bowel sounds, non-tender and non-distended Extremity normal to inspection Extremity Narrative: Chronic right-sided hemiparesis secondary to previous CVA Skin no rashes or lesions noted Lesions: no lesions Rashes: no rashes Trauma: no lacerations or abrasions Neuro CN's II-XII intact bilaterally, no focal motor deficits, no sensory deficits noted and deep tendon reflexes 2+ bilaterally Psych mental status grossly normal Mood & Affect: flat affect Assessment & Plan Assessment/Plan (1) Pleural effusion: (2) Hypoxia: PLAN: 1. Acute hypoxic respiratory failure secondary to malignant bilateral pleural effusion, possible postobstructive pneumonia due to lung cancer-status post thoracentesis x2. Pleural effusion consistent with exudate. On IV Levaquin empirically to complete 7-day course. Pleural fluid cytology consistent with lung or ovarian primary. Pulmonary medicine following. Continue supplement oxygen to maintain O2 at or above 90%. Pleural effusion will likely recur given malignant in nature, will need to discuss CODE STATUS. 2. History of CVA with residual left-sided hemiparesis-PT/OT. Resides at [facility]. G-tube in place. Speech therapy ordered. 3. Right lower lobe non-small cell lung cancer- Following with Dr. Resendez. 4. Electrolyte disturbances with hypokalemia/hypernatremia-resolved. 5. Hypertension-stable, continue losartan. 6. Hyperlipidemia-continue statin. 7. Depression-continue citalopram. 8. History of DVT-resume home Lovenox. 9. Chronic microcytic anemia-stable. DVT prophylaxis- SCDs, Lovenox Discharge plan: Return to SNF when medically stable. This patient was seen by MICKEY Brewster under the supervision of Dr. Deluna. Documented by User: Dr. Emile Deluna MD 10/18/20 14:06 Objective Data Lab / Micro Data Result Diagrams: 10/18/20 05:50 10/18/20 05:50 Assessment & Plan Addt[facility]l [facility] [id number] [place] [address] Progress Note - Ceidicmcyuh53/28/21 1509MR#: [id number]:[id number]:FLACO CONLEY [facility] #:[id number]: [id number]: Fausto Scott PAPCP:Dr. mJ Villagran MD Status:ADM INLocation: [id number] Documented by User: Fausto MULLINS 10/17/20 15:30 Subjective Subjective Patient is a 64-year-old female comfortably resting in bed, alert to self. Patient mentation appears slightly improved from previous days as patient is able to answer questions appropriately, however still not oriented to place or time. Objective Data Objective Data Vital Signs: Vital Signs Temp Pulse Resp BP Pulse Ox 98.2 F 95 28 H 111/80 95 10/17/20 15:00 10/17/20 15:00 10/17/20 15:00 10/17/20 15:00 10/17/20 15:00 Oxygen Flow Rate (L/min) [2] 6 Oxygen Flow Rate (L/min) [1 ( 6 Initial Baseline)] Oxygen Flow Rate (L/min) 5 Oxygen Delivery Method [2] Nasal Cannula Oxygen Delivery Method [1 ( Nasal Cannula Initial Baseline)] Oxygen Delivery Method Nasal Cannula Weight: 136 lb 14.513 oz Body Mass Index (BMI) 25.8 Intake & Output:Intake and Output for Last 24 Hours 10/15/20 10/16/20 10/17/20 23:59 23:59 23:59 Intake Total 2550.00 / 2550.00 3588.33 / 4028.33 1866.67 / 1866.67 Output Total 850 / 850 450 / 450 Balance 1700.00 / 1700.00 3588.33 / 4028.33 1416.67 / 1416.67 Medical Nutrition Assessment Dietitian: Nutrition Therapy Diagnosis Start: 10/13/20 11:41 Freq: Status: Active Protocol: Document 10/17/20 11:37 AG (Rec: 10/17/20 11:37 AG [id number]) Nutrition Malnutrition Evidence of Malnutrition Exists No Intake Problem Inadequate Oral Intake Etiology related to chewing/swallowing difficulty from CVA Signs/Symptoms as evidenced by pt unable to meet estimated nutrition needs with PO intake, consuming less than 25% of meals served Status Active Problem Recommendation Dietitian Recommendations/Changes 1) Continue Jevity 1.5 250mL bolus via PEG 4 times per day with 100mL water flush before and after each bolus feed to provide 1500 calories, 63.8 g protein and 1560 mL free water per day. As ordered, enteral nutrition meets >75% of estimated nutritional needs. 2) Regular diet, textures/ consistency modification per PHYSICAL INTEGRATION PRACTITIONER. Continue Ensure Pudding BID for additional protein/ calories if consumed. 3) Daily wts. Lab / Micro Data Result Diagrams: 10/16/20 05:20 document embedded image 10/17/20 09:10 document embedded image Labs:Laboratory Results - last 24 hr 10/17/20 09:10: Sodium 138, Potassium 2.9 L, Chloride 106, Carbon Dioxide 26.0, Anion Gap 6, BUN 6 L, Creatinine 0.23 L, Estim Creat Clear Calc 41.76, Est GFR (MDRD) Af Amer 386, Est GFR (MDRD) Non-Af 319, BUN/Creatinine Ratio 26.0 H, Glucose 122 H, Calcium 7.9 L 10/17/20 09:10: Magnesium 1.6 Micro:Microbiology 10/14/20 Unknown Fluid - Pleural (Lung) Gram Stain - Final 10/14/20 Unknown Fluid - Pleural (Lung) Body Fluid Culture - Preliminary No growth-Final to follow 10/14/20 Unknown Fluid - Pleural (Lung) Anaerobic Culture - Final No growth in 5 days. 10/12/20 16:58 Blood Culture (Wb) #2 - Anticubital Right Blood Culture - Preliminary No growth in 48 hours. 10/12/20 16:10 Blood Culture (Wb) - Right Wrist Blood Culture - Preliminary No growth in 48 hours. 10/12/20 16:34 Mucosa - Nose SARS-CoV-2 Antigen (Rapid) - Final Radiography Diagnostic Testing:Radiology Impression Chest X-Ray 10/16/20 12:45 IMPRESSION: No interval change. Electronically Signed: Dunacn Gomez DO at 16:48 EDT Tel [phone], Service support , Physical Exam Const alert Orientation / Consciousness: confused HEENT head/scalp atraumatic and moist oral mucous membranes Head and Scalp: normocephalic Eyes EOMs intact bilaterally and conjunctivae normal Eyes Narrative: Exophthalmos bilaterally. Neck no lymphadenopathy, supple and no JVD Resp Effort and Inspection: tachypneic and labored Cardio regular rate, regular rhythm, no murmurs and no JVD GI normal to inspection, nondistended, normoactive bowel sounds, soft to palpation and non-tender Extremity normal to inspection, full ROM and no clubbing, cyanosis or edema Skin no rashes or lesions noted, no wounds, skin turgor normal and no jaundice Neuro CN's II-XII intact bilaterally Psych affect normal Assessment & Plan Assessment/Plan (1) Shortness of breath: (2) Weakness: (3) Pleural effusion: (4) Right lower lobe lung mass: PLAN: Day 6: See subjective. Discharge plan: Awaiting pre-CERT from [facility]. 1) Hypoxia secondary to right pleural effusion with possible postobstructive pneumonia Currently satting at 95% on 5 L via nasal cannula. Patient has had 2 thoracentesis, that have collectively drawn about 1800 cc of fluid. Chest x-ray has demonstrated improvement of pleural effusions, relative to admission. Etiology of pleural effusion could possibly be malignancy, side effect of Keytruda regimen or transudate secondary to CHF. Pulmonology following, recommendations as follows. Plan; continue levofloxacin start (day 3 of 7), awaiting pleural fluid cytology results, encourage incentive spirometry. 2) hypokalemia Currently 2.9. Magnesium currently 1.6. Plan; replace potassium, magnesium infusion per student development dean, continue to monitor BMP. 3) Hypernatremia Resolved. 4) History of CVA with left hemiplegia Patient is a resident at [facility], however will need pre-CERT to reenter correction as noted above. Patient is alert and oriented only to self, unaware of patient mentation at baseline. DVT prophylaxis ? SCDs, will reinitiate anticoagulation if no additional thoracentesis indicated. Patient seen by Fausto Scott PA-C, under the supervision of Dr. Deluna. This patient was seen in conjunction with MICKEY Brewster . I have independently interviewed and examined the patient and reviewed pertinent historical, laboratory, and other data. Please refer to MICKEY Brewster note for details of this patient's presentation, findings, and recommendations. I have reviewed MICKEY Brewster note and concur with documented findings. In brief, patient is a 64-year-old lady with history of adenocarcinoma involving the right upper lobe, currently resident at an ECF brought in with progressive shortness of breath patient was found to have significant hypoxia with bilateral pleural effusion admitted to monitored bed for subsequent management 10/16/2020; patient seen awaiting insurance precertification prior to DC to ECF. She underwent ultrasound-guided thoracocentesis the day prior 10/17/2020; chest x-ray shows improved aeration. Patient is scheduled to undergo modified barium swallow. Plan is for patient to be discharged to [facility] facility once insurance precertification is obtained 10/18/2020; awaiting insurance precertification. Patient patient seen currently on BiPAP Physical Examination: GENERAL: Frail looking HEENT: Atraumatic; EYES; Anicteric, Normal Conjunctiva NECK; supple, normal thyroid, RESPIRATORY: Diminished to auscultation CARDIOVASCULAR: Regular S1 S2, GI: soft, normoactive bowel sounds, PSYCH; Flat affect Assessment: 1. Acute hypoxic respiratory insufficiency secondary to bilateral pleural effusion 2. History of CVA with residual left-sided hemiparesis 3. Adenocarcinoma involving the right upper lobe 4. Hyponatremia 5. Hypernatremia?Resolved 6. Hyponatremia ?Resolved 7. Physical debility 8. DVT prophylaxis Recommendations: 1. I have discussed the results of my overview and impressions with the patient 2. Options for management were reviewed
[2020-10-18 13:26] LABS: Pathologist Comment/Body Fluid Reviewed
--- NOTE | 2020-10-18 13:32 | RAD_ITS ---
STUDY: X-RAY CHEST REASON FOR EXAM: Female, 64 years old. hypoxia TECHNIQUE: AP and lateral views of the chest. COMPARISON: October 15 and FINDINGS: There are superimposed monitor leads. There is worsening of aeration with increase of opacification in the right mid and lower lung parenchyma, less in the right upper lung. The hemidiaphragm is partially obscured on the right, there is blunting of the left costophrenic angle, minimal atelectasis or small infiltrate in the left retrocardiac space. Normal size heart. Normal mediastinum and rola. Normal visualized pulmonary arteries. There is atherosclerotic calcification of the aortic arch with tortuosity. There is demineralization of the osseous structures. Subluxation of the left shoulder joint is stable. There is no demonstrated abnormality of the visualized soft tissue structures of the upper abdomen. RAD/Chest PA and Lateral IMPRESSION: Worsening airspace disease centered in the right middle lobe, superior segment of the right lower lobe, atelectasis, scarring or small effusion in the left base. Electronically Signed: Janice Vazquez MD at 4:12 EDT , Service support ,
[2020-10-18] MEDS: Doxazosin 1 MG Tablet GT (22:32)
[2020-10-18] MEDS: Atorvastatin Calcium 80 MG Tablet GT (22:32)
[2020-10-18] MEDS: MELATONIN 3 MG TABLET 6 MG GT (22:34)
[2020-10-18] MEDS: 0.9% Saline Lock 10 ML Syringe IV (22:35)
[2020-10-19] VITALS (9 sets, daily range): BP systolic 110–117; BP diastolic 70–81; PULSE 94–105; RESP 14–33; TEMP 36.6–36.9; O2SAT 35–96
[2020-10-19] MEDS: Ipratropium 0.5 MG/2.5 ML SOLUTION INHALATION ×3 (00:22→10:45)
[2020-10-19] MEDS: Haloperidol Lactate 5 MG/ML Vial IV (00:46)
[2020-10-19] MEDS: 0.9% Saline Lock 10 ML Syringe IV (00:47)
[2020-10-19] MEDS: Nystatin Powder 15gm Bottle 1 APPLIC TOPICAL (05:13)
--- NOTE | 2020-10-19 08:38 | PN.CC_ITS ---
Assessment & Plan Assessment/Plan (1) Pleural effusion: PLAN: RECOMMENDATIONS: 1. Continue empiric antimicrobials to complete 7-day treatment course. 2. Wean supplemental oxygen to maintain saturations at or above 90%. 3. Encourage incentive spirometer use while in bed. 4. AVAPS as needed. 5. Consider a trial of diuretic therapy. 6. Consider Pleurx catheter placement, depending on overall goals of care from an oncology perspective. IMPRESSIONS: 1. Acute hypoxemic respiratory failure secondary to right pleural effusion and possible postobstructive pneumonia The patient has a known history of non-small cell lung cancer of the right lower lobe and a sizable right-sided effusion noted on chest imaging. There was also concern for possible postobstructive pneumonia. The patient has been through two separate thoracenteses procedures at this time. Unfortunately, the patient's pleural fluid was positive for malignant cells. Plan to continue antimicrobials to complete treatment course. Given that the patient is overall net positive for the hospitalization, consideration could be given to a trial of diuretic therapy. AVAPS will be continued and weaned as tolerated. Goal to maintain oxygen saturations at or above 90%. Pending overall goals of care, the patient may be a candidate for Pleurx catheter placement, given reaccumulation of the right-sided pleural fluid. 2. Lung adenocarcinoma/recent CVA/history of hemoptysis/depression/protracted recovery Complicates care, management, recovery and prognosis. Continue home medications as needed. CODE status: Discussed CODE status at length including difference between FULL code, DNR-CCA and DNR-CC status. Following discussions about the differences in these status, patient requested DNR-CCA/DNI CODE STATUS. This note was generated with [employer] dictation software. It may contain incorrect words, spelling, and punctuation that were not noted in checking the note before signing. Subjective Subjective The patient was seen and examined at the bedside this morning. Events from the last 24 hours have been reviewed. The patient is currently afebrile, hemo dynamically stable and maintaining appropriate oxygen saturations on AVAPS with an FiO2 requirement of 35%. Chest x-ray completed yesterday revealed reaccumulating right-sided pleural fluid. The patient is documented to be overall net +11.6 L for the hospital admission. Objective Data Objective Data The patient's most recent lab work, culture data and imaging studies have all been personally reviewed. Infectious work-up has been unrevealing to date. Vital Signs: Vital Signs Temp Pulse Resp BP Pulse Ox 98.5 F 94 22 H 117/70 35 10/19/20 03:00 10/19/20 07:42 10/19/20 04:33 10/19/20 03:00 10/19/20 03:10 Oxygen Flow Rate (L/min) [2] 6 Oxygen Flow Rate (L/min) [1 ( 6 Initial Baseline)] Oxygen Flow Rate (L/min) 5 Oxygen Delivery Method [2] Nasal Cannula Oxygen Delivery Method [1 ( Nasal Cannula Initial Baseline)] Oxygen Delivery Method Bi-pap Weight: 66.7 kg Body Mass Index (BMI) 25.8 Intake & Output: Intake and Output for Last 24 Hours 10/17/20 10/18/20 10/19/20 23:59 23:59 23:59 Intake Total 5400.67 / 5500.67 1290 / 1290 Output Total 450 / 450 Balance 4950.67 / 5050.67 1290 / 1290 Medical Nutrition Assessment Dietitian: Nutrition Therapy Diagnosis Start: 10/13/20 11:41 Freq: Status: Active Protocol: Document 10/17/20 11:37 AG (Rec: 10/17/20 11:37 AG [id number]) Nutrition Malnutrition Evidence of Malnutrition Exists No Intake Problem Inadequate Oral Intake Etiology related to chewing/swallowing difficulty from CVA Signs/Symptoms as evidenced by pt unable to meet estimated nutrition needs with PO intake, consuming less than 25% of meals served Status Active Problem Recommendation Dietitian Recommendations/Changes 1) Continue Jevity 1.5 250mL bolus via PEG 4 times per day with 100mL water flush before and after each bolus feed to provide 1500 calories, 63.8 g protein and 1560 mL free water per day. As ordered, enteral nutrition meets >75% of estimated nutritional needs. 2) Regular diet, textures/ consistency modification per INSTRUCTIONAL TECHNOLOGY TEACHER. Continue Ensure Pudding BID for additional protein/ calories if consumed. 3) Daily wts. Lab / Micro Data Attestation: I reviewed the patient's lab results. Result Diagrams: 10/18/20 05:50 10/18/20 05:50 Labs: Laboratory Results - last 24 hr 10/14/20 : Fl Pathologist Comment Reviewed 10/14/20 : Miscellaneous Cytology SEE PATHOLOGY REPORT Micro: Microbiology 10/12/20 16:58 Blood Culture (Wb) #2 - Anticubital Right Blood Culture - Final No growth in 5 days. 10/12/20 16:10 Blood Culture (Wb) - Right Wrist Blood Culture - Final No growth in 5 days. 10/14/20 Unknown Fluid - Pleural (Lung) Gram Stain - Final 10/14/20 Unknown Fluid - Pleural (Lung) Body Fluid Culture - Final Culture exhibits no growth. 10/14/20 Unknown Fluid - Pleural (Lung) Anaerobic Culture - Final No growth in 5 days. 10/12/20 16:34 Mucosa - Nose SARS-CoV-2 Antigen (Rapid) - Final Radiography Diagnostic Testing: Radiology Impression Chest X-Ray 10/18/20 13:32 IMPRESSION: Worsening airspace disease centered in the right middle lobe, superior segment of the right lower lobe, atelectasis, scarring or small effusion in the left base. Electronically Signed: Janice Vazquez MD at 4:12 EDT , Service support , Physical Exam Const alert and no apparent distress General Appearance: cooperative and on BiPAP HEENT normocephalic and head/scalp atraumatic Eyes PERRL, EOMs intact bilaterally and conjunctivae normal Neck supple General: trachea midline Resp normal respiratory effort Auscultation: diminished lung sounds Cardio regular rate and regular rhythm GI normal to inspection, nondistended, normoactive bowel sounds Extremity no clubbing, cyanosis or edema Skin no rashes or lesions noted Neuro oriented x3 and CN's II-XII intact bilaterally Psych Mood & Affect: flat affect Charges/Coding Visit Charges Inpatient E&M: 93579 Subs Hosp L2
[2020-10-19] MEDS: Glycerin/Hypromellose/PEG400 15 ml Bottle 1 DRP EACH EYE (10:08)
[2020-10-19] MEDS: Fluticasone 0.05% 1 SPRAY NASAL.SRY 2 SPRAY NASAL (10:10)
[2020-10-19] MEDS: Lansoprazole 15 MG Capsule.DR 30 MG GT (10:10)
[2020-10-19] MEDS: Losartan Potassium 25 MG Tablet 12.5 MG GT (10:10)
[2020-10-19] MEDS: Cholecalciferol (VIT D3) 25 MCG TABLET (1,000 UNITS) 50 MCG GT (10:10)
[2020-10-19] MEDS: levETIRAcetam Oral Solution 500 MG/5 ML 750 MG GT (10:11)
[2020-10-19] MEDS: Menthol/Lanolin/Calamine/Znox 113 GM Tube 1 APPLIC TOPICAL (10:11)
[2020-10-19] MEDS: Citalopram 20 MG Tablet GT (10:11)
[2020-10-19] MEDS: Jevity 1.5. 1,000 ML Bottle 250 ML GT (10:11)
--- NOTE | 2020-10-19 10:11 | CASEMGMT ---
LIZ spoke with HEATHER Barrera and she spoke with Dr Resendez and he will talk with patient's daughter about Hospice. SW then received a call from patient's daughter and she said they would like to go forward with the Inpatient Unit at Hospice. SW told her SW will fax a referral and Hospice will call her to set up a time to meet and sign papers. SW provided emotional support as she was understandably upset. SW faxed Hospice referral and also called regarding referral. Tuyet at Hospice asked that HEATHER Barrera call Dr Morris at Hospice for IPU approval. LIZ let Holly know this information. Bharati Chance RETAIL PRODUCT DEMO SPECIALIST TECHNOLOGY TRAINER
[2020-10-19] MEDS: Nystatin Ointment 1 APPLIC TOPICAL (10:12)
--- NOTE | 2020-10-19 11:40 | CASEMGMT ---
LIZ called Linda at [facility] and gave her a heads up that patient will likely be going on Hospice today. Family is hoping for the Inpatient Hospice Unit. LIZ told her LIZ will let her know when LIZ knows for sure. Bharati Chance FOOD SAFETY SPECIALISTMariely GODRFEY
--- NOTE | 2020-10-19 11:47 | PCM.DC.SUM ---
Documented by User: Holly Myrick NP, CLEANING ASSOCIATE-C 10/19/20 12:11 Providers Date of Admission: 10/12/20 Date of Discharge: 10/19/20 Primary Care Physician: Dr. Jm Villagran MD Consultations 10/12/20 18:39 Consult: Linking Machine Operator / Pulmonary Medicine Routine Consulting Provider: [facility] Reason for Consult: Right pleural effusion EMERGENT Consult: No MD Notified: Yes Date Notified: 10/12/20 Time Notified: 18:39 Method of Notification: Verbal Reason For Visit: PLEURAL EFFUSION Diagnosis Discharge Diagnosis (1) Pleural effusion: Status: Acute Code(s): J90 - Pleural effusion, not elsewhere classified Medications at Discharge Home Medications multivitamin with minerals 1 ea PO DAILY 04/10/20 cholecalciferol (vitamin D3) 2,000 unit FEEDING TUBE DAILY 07/10/20 fluticasone propionate 2 spray NASAL DAILY 07/10/20 acetaminophen [Tylenol Extra Strength] 1,000 mg PO Q6H PRN 10/12/20 atorvastatin 80 mg FEEDING TUBE QHS 10/12/20 carboxymethylcellulose sodium [Refresh Tears] 1 drp EACH EYE BID 10/12/20 citalopram 20 mg FEEDING TUBE DAILY 10/12/20 enoxaparin 70 mg SUBCUT BID 10/12/20 esomeprazole magnesium 40 mg PO DAILY 10/12/20 lactose-reduced food with fibr [Isosource 1.5 Sumit] See Rx Instructions .ROUTE .COMPLEX 10/12/20 levalbuterol HCl 0.63 mg INHALATION Q4H PRN 10/12/20 levetiracetam [Keppra] 750 mg FEEDING TUBE Q12H 10/12/20 losartan 12.5 mg FEEDING TUBE DAILY 10/12/20 melatonin 6 mg FEEDING TUBE DAILY@1800 10/12/20 morphine concentrate [Roxanol Concentrate] 4 mg PO Q4H PRN 10/12/20 nystatin [Nystop] 1 applic TOPICAL TID 10/12/20 prazosin 1 mg FEEDING TUBE QHS 10/12/20 Hospital Course Operations None Procedures Thoracentesis Summary of Care Provided Minutes Spent on Discharge: 35 Hospital Course: Patient is a 64-year-old female admitted 10/12/2020 due to shortness of breath. 1. Acute hypoxic respiratory failure secondary to malignant bilateral pleural effusion, possible postobstructive pneumonia due to lung cancer-status post thoracentesis x2 with 1800cc total fluid removal. Pleural effusion consistent with exudate. IV Levaquin empirically, completed 7-day course. Pleural fluid cytology consistent with lung or ovarian primary. Pulmonary medicine following during admission. Continue supplement oxygen to maintain O2 at or above 90%. Repeat chest x-ray 10/18/2020 demonstrates worsening airspace disease in the right middle lobe, superior segment of the right lower lobe and effusion in the left base. Discussed with Dr. Resendez, oncology. Previously on chemotherapy, immunotherapy and radiation on clinical trial however on week 5 of treatment she developed embolic stroke and had a emergent thrombectomy 07/10/2020. Per outpatient oncology documentation, patient not a candidate for chemotherapy because of comorbidity and recent embolic stroke. She received Keytruda x1 dose. Due to progression of disease, functional decline, comorbidities and rapidly recurrent malignant pleural effusions, hospice was discussed with patient and family and she was found to be appropriate for inpatient hospice unit at discharge. 2. 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 G-tube in place. Dietary modifications per speech therapy recommendations. 3. Right lower lobe non-small cell lung cancer- Following with Dr. Resendez. 4. Electrolyte disturbances with hypokalemia/hypernatremia-resolved. 5. Hypertension-stable, continue losartan. 6. Hyperlipidemia-continue statin. 7. Depression-continue citalopram. 8. History of DVT-on Lovenox. 9. Chronic microcytic anemia-stable. Physical Exam Const no apparent distress Orientation / Consciousness: awake HEENT normocephalic Mouth: dry mucous membranes Eyes PERRL, EOMs intact bilaterally and conjunctivae normal Neck no lymphadenopathy Resp clear to auscultation bilaterally Auscultation: diminished lung sounds Cardio regular rate, regular rhythm and no murmurs Peripheral Pulses: pulses 2+ throughout GI normal to inspection, nondistended, normoactive bowel sounds, non-tender and non-distended Extremity normal to inspection Extremity Narrative: Chronic left-sided hemiparesis secondary to previous CVA Skin no rashes or lesions noted Lesions: no lesions Rashes: no rashes Trauma: no lacerations or abrasions Neuro CN's II-XII intact bilaterally, no focal motor deficits, no sensory deficits noted and deep tendon reflexes 2+ bilaterally Psych mental status grossly normal Mood & Affect: flat affect Patient seen and examined prior to discharge. Physical assessment as noted above. Patient is stable for discharge with follow up recommendations as noted above. This patient was seen by MICKEY Brewster under the supervision of Dr. Deluna. Medical Records Data Medical Nutrition Assessment Dietitian: Nutrition Therapy Diagnosis Start: 10/13/20 11:41 Freq: Status: Active Protocol: Document 10/17/20 11:37 AG (Rec: 10/17/20 11:37 AG [id number]) Nutrition Malnutrition Evidence of Malnutrition Exists No Intake Problem Inadequate Oral Intake Etiology related to chewing/swallowing difficulty from CVA Signs/Symptoms as evidenced by pt unable to meet estimated nutrition needs with PO intake, consuming less than 25% of meals served Status Active Problem Recommendation Dietitian Recommendations/Changes 1) Continue Jevity 1.5 250mL bolus via PEG 4 times per day with 100mL water flush before and after each bolus feed to provide 1500 calories, 63.8 g protein and 1560 mL free water per day. As ordered, enteral nutrition meets >75% of estimated nutritional needs. 2) Regular diet, textures/ consistency modification per TELEGRAPH OFFICE TELEPHONE CLERK. Continue Ensure Pudding BID for additional protein/ calories if consumed. 3) Daily wts. Weight / BMI Weight Weight: 147 lb 0.773 oz Body Mass Index (BMI) 25.8 ABG / Lab / Microbiology Data Result Diagrams: 10/18/20 05:50 10/18/20 05:50 Laboratory: Laboratory Results - last 24 hr 10/14/20 : Fl Pathologist Comment Reviewed 10/14/20 : Miscellaneous Cytology SEE PATHOLOGY REPORT Microbiology: Microbiology 10/12/20 16:58 Blood Culture (Wb) #2 - Anticubital Right Blood Culture - Final No growth in 5 days. 10/12/20 16:10 Blood Culture (Wb) - Right Wrist Blood Culture - Final No growth in 5 days. 10/14/20 Unknown Fluid - Pleural (Lung) Gram Stain - Final 10/14/20 Unknown Fluid - Pleural (Lung) Body Fluid Culture - Final Culture exhibits no growth. 10/14/20 Unknown Fluid - Pleural (Lung) Anaerobic Culture - Final No growth in 5 days. 10/12/20 16:34 Mucosa - Nose SARS-CoV-2 Antigen (Rapid) - Final Radiography Diagnostic Testing: Radiology Impression Chest X-Ray 10/18/20 13:32 IMPRESSION: Worsening airspace disease centered in the right middle lobe, superior segment of the right lower lobe, atelectasis, scarring or small effusion in the left base. Electronically Signed: Janice Vazquez MD at 4:12 EDT , Service support , Meaningful Use Info Meaningful Use Diagnoses (Choose all that apply): None applicable Discharge Plan Admission Admit Date/Time: 10/12/20 18:07 Attending Provider: Emile Deluna Primary Care Provider: Jm Villagran Consulting Providers: Michael Calles ; Medhat Serna ; Margarita Zuleta CLEANING ASSOCIATE Discharge Orders/Prescriptions Prescriptions: No Action multivitamin with minerals 1 EACH tablet 1 ea PO DAILY RF: 0 fluticasone propionate 1 SPRAY spray,suspension 2 spray NASAL DAILY RF: 0 cholecalciferol (vitamin D3) 2,000 UNIT capsule 2,000 unit feeding tube DAILY RF: 0 atorvastatin 80 mg Tablet 80 mg feeding tube QHS RF: 0 morphine concentrate [Roxanol Concentrate] 100 mg/5 mL (20 mg/mL) Solution 4 mg PO Q4H PRN (Reason: Pain) RF: 0 levalbuterol HCl 0.63 mg/3 mL Solution For Nebulization 0.63 mg INHALATION Q4H PRN (Reason: Shortness Of Breath Or Wheezing) RF: 0 prazosin 1 mg Capsule 1 mg feeding tube QHS RF: 0 melatonin 3 mg Tablet 6 mg feeding tube DAILY@1800 RF: 0 acetaminophen [Tylenol Extra Strength] 500 mg Tablet 1,000 mg PO Q6H PRN (Reason: Pain) RF: 0 citalopram 20 mg Tablet 20 mg feeding tube DAILY RF: 0 carboxymethylcellulose sodium [Refresh Tears] 0.5 % Drops 1 drp EACH EYE BID RF: 0 losartan 25 mg Tablet 12.5 mg feeding tube DAILY RF: 0 nystatin [Nystop] 100,000 unit/gram Powder 1 applic TOPICAL TID RF: 0 enoxaparin 80 mg/0.8 mL syringe 70 mg subcut BID RF: 0 Isosource 1.5 Sumit Liquid See Rx Instructions .ROUTE .COMPLEX RF: 0 levetiracetam [Keppra] 100 mg/mL Solution 750 mg feeding tube Q12H RF: 0 esomeprazole magnesium [address] For Susp In Packet 40 mg PO DAILY RF: 0 Referrals / Follow Up: Jm Villagran MD [Primary Care Provider] - Disposition Disposition (needs filled in before D/C Order can be placed): Hospice in Medical Facility Documented by User: Dr. Emile Deluna MD 10/19/20 12:44 Providers Date of Admission: 10/12/20 Reason For Visit: PLEURAL EFFUSION Medications at Discharge Home Medications multivitamin with minerals 1 ea PO DAILY 04/10/20 cholecalciferol (vitamin D3) 2,000 unit FEEDING TUBE DAILY 07/10/20 fluticasone propionate 2 spray NASAL DAILY 07/10/20 acetaminophen [Tylenol Extra Strength] 1,000 mg PO Q6H PRN 10/12/20 atorvastatin 80 mg FEEDING TUBE QHS 10/12/20 carboxymethylcellulose sodium [Refresh Tears] 1 drp EACH EYE BID 10/12/20 citalopram 20 mg FEEDING TUBE DAILY 10/12/20 enoxaparin 70 mg SUBCUT BID 10/12/20 esomeprazole magnesium 40 mg PO DAILY 10/12/20 lactose-reduced food with fibr [Isosource 1.5 Sumit] See Rx Instructions .ROUTE .COMPLEX 10/12/20 levalbuterol HCl 0.63 mg INHALATION Q4H PRN 10/12/20 levetiracetam [Keppra] 750 mg FEEDING TUBE Q12H 10/12/20 losartan 12.5 mg FEEDING TUBE DAILY 10/12/20 melatonin 6 mg FEEDING TUBE DAILY@1800 10/12/20 morphine concentrate [Roxanol Concentrate] 4 mg PO Q4H PRN 10/12/20 nystatin [Nystop] 1 applic TOPICAL TID 10/12/20 prazosin 1 mg FEEDING TUBE QHS 10/12/20 Hospital Course Operations None Summary of Care Provided Hospital Course: This patient was seen in conjunction with CLEO BrewsterC . I have independently interviewed and examined the patient and reviewed pertinent historical, laboratory, and other data. Please refer to MICKEY Brewster note for details of this patient's presentation, findings, and recommendations. I have reviewed MICKEY Brewster note and concur with documented findings. In brief, patient is a 64-year-old lady with history of adenocarcinoma involving the right upper lobe, currently resident at an [facility] brought in with progressive shortness of breath patient was found to have significant hypoxia with bilateral pleural effusion admitted to monitored bed for subsequent management Assessment: 1. Acute hypoxic respiratory insufficiency secondary to bilateral pleural effusion 2. History of CVA with residual left-sided hemiparesis 3. Adenocarcinoma involving the right upper lobe 4. Hyponatremia 5. Hypernatremia?Resolved 6. Hyponatremia ?Resolved 7. Physical debility 8. DVT prophylaxis Hospital course; as documented above ABG / Lab / Microbiology Data Result Diagrams: 10/18/20 05:50 10/18/20 05:50 Discharge Plan Admission Admit Date/Time: 10/12/20 18:07 Attending Provider: Emile Deluna Primary Care Provider: Jm Villagran Consulting Providers: Michael Calles ; Medhat Serna ; Margarita Zuleta NP Discharge Orders/Prescriptions Prescriptions: No Action multivitamin with minerals 1 EACH tablet 1 ea PO DAILY RF: 0 fluticasone propionate 1 SPRAY spray,suspension 2 spray NASAL DAILY RF: 0 cholecalciferol (vitamin D3) 2,000 UNIT capsule 2,000 unit feeding tube DAILY RF: 0 atorvastatin 80 mg Tablet 80 mg feeding tube QHS RF: 0 morphine concentrate [Roxanol Concentrate] 100 mg/5 mL (20 mg/mL) Solution 4 mg PO Q4H PRN (Reason: Pain) RF: 0 levalbuterol HCl 0.63 mg/3 mL Solution For Nebulization 0.63 mg INHALATION Q4H PRN (Reason: Shortness Of Breath Or Wheezing) RF: 0 prazosin 1 mg Capsule 1 mg feeding tube QHS RF: 0 melatonin 3 mg Tablet 6 mg feeding tube DAILY@1800 RF: 0 acetaminophen [Tylenol Extra Strength] 500 mg Tablet 1,000 mg PO Q6H PRN (Reason: Pain) RF: 0 citalopram 20 mg Tablet 20 mg feeding tube DAILY RF: 0 carboxymethylcellulose sodium [Refresh Tears] 0.5 % Drops 1 drp EACH EYE BID RF: 0 losartan 25 mg Tablet 12.5 mg feeding tube DAILY RF: 0 nystatin [Nystop] 100,000 unit/gram Powder 1 applic TOPICAL TID RF: 0 enoxaparin 80 mg/0.8 mL syringe 70 mg subcut BID RF: 0 Isosource 1.5 Sumit Liquid See Rx Instructions .ROUTE .COMPLEX RF: 0 levetiracetam [Keppra] 100 mg/mL Solution 750 mg feeding tube Q12H RF: 0 esomeprazole magnesium [address] For Susp In Packet 40 mg PO DAILY RF: 0 Referrals / Follow Up: Jm Villagran MD [Primary Care Provider] - Disposition Disposition (needs filled in before D/C Order can be placed): Hospice in Medical Facility Charges/Coding Visit Charges Inpatient E&M: 24812 Disch Hosp Hospital Course Consultations Consultations: Consultations 10/12/20 18:39 Consult: Linking Machine Operator / Pulmonary Medicine Routine Consulting Provider: [facility] Reason for Consult: Right pleural effusion EMERGENT Consult: No MD Notified: Yes Date Notified: 10/12/20 Time Notified: 18:39 Method of Notification: Verbal Operations None
--- NOTE | 2020-10-19 11:52 | CASEMGMT ---
Patient has been approved for the inpatient Hospice Unit. Await word from Hospice on transport to their IPU. Bharati GODFREY
--- NOTE | 2020-10-19 14:07 | CASEMGMT ---
Hospice spoke with patient and family and papers were signed. Joaquim from Hospice called and will have the mobile unit come to [facility]. SW notified RN of this information and also gave her the phone number for nurse to nurse. Plan: d/c to [facility]patient [facility]. Bharati GODFREY
--- NOTE | 2020-10-19 15:20 | NURSING ---
report called to geoff in [facility]
== END 2020-10-19 14:45 | disposition hospice, inpatient (51) | DRG 180 ==
LOC: ED 18:09 → PCU 18:17
PROVIDERS: Internal Medicine Critical Care Medicine; Physician Assistant; Admitting Provider Internal Medicine; Emergency Provider Emergency Medicine; PCP Internal Medicine; Visit Provider Internal Medicine
DX: C34.31 Malignant neoplasm of lower lobe, right bronchus or lung (principal); J18.9 Pneumonia, unspecified organism; J96.01 Acute respiratory failure with hypoxia; J91.0 Malignant pleural effusion; I69.354 Hemiplegia and hemiparesis following cerebral infarction affecting left non-dominant side; E87.0 Hyperosmolality and hypernatremia; E87.1 Hypo-osmolality and hyponatremia; E87.6 Hypokalemia; E87.2 Acidosis; R04.2 Hemoptysis; I82.403 Acute embolism and thrombosis of unspecified deep veins of lower extremity, bilateral; R09.02 Hypoxemia; Z20.822 Contact with and (suspected) exposure to COVID-19; I10 Essential (primary) hypertension; E78.5 Hyperlipidemia, unspecified; F32.9 Major depressive disorder, single episode, unspecified; F41.9 Anxiety disorder, unspecified; Z66 Do not resuscitate; Z79.01 Long term (current) use of anticoagulants; Z79.899 Other long term (current) drug therapy; Z93.1 Gastrostomy status; Z95.828 Presence of other vascular implants and grafts; Z85.820 Personal history of malignant melanoma of skin; Z86.718 Personal history of other venous thrombosis and embolism; Z92.21 Personal history of antineoplastic chemotherapy; Z87.891 Personal history of nicotine dependence
CPT/HCPCS: 32555; 36415; 36600; 71045; 71046; 71275; 74230; 80048; 80053; 80076; 81001; 82803; 82945; 83605; 83615; 83735; 83880; 84157; 84484; 85025; 85610; 85730; 87040; 87070; 87075; 87205; 87426; 88108; 88305; 88313; 88341; 88342; 89050; 92526; 92610; 92611; 93005; 94002; 94003; 94640; 97110; 97162; 97166; 97530; 97535; 97802; 97803; 99285; J7030; P9612; Q9967; A4216